=== PATIENT | female | born 1990 | race Caucasian/White ===

== ENCOUNTER 2019-11-01 00:42 | Emergency (ER) | payer OTHER, SELFPAY ==
[2019-11-01 00:44] VITALS: BP 133/86; PULSE 55; RESP 16; TEMP 36.3; O2SAT 99; BMI 33.3
--- NOTE | 2019-11-01 01:06 | ED.VIS.GI ---
History of Present Illness Chief Complaint: Abd Pain Informant: Patient - Abdominal Pain/Flank Pain Onset: Today, Hours - 4-5 Context: Gradual Onset Timing: Continuous - not colicky Quality: Aching Location: RUQ Current Severity: Moderate Maximum Severity: Moderate Worsened by: Nothing Relieved by: Nothing - tried lying a towel soaked in castor oil over her liver where her pain has been; no help. did not drink any castor oil, or try taking any other medications. - Nausea/Vomiting/Emesis GI Symptom: Nausea. Negative for: Vomiting - Diarrhea/Melena/Hematochezia GI Symptom: Negative for: Diarrhea, Melena, Hematochezia Associated Symptoms: Negative for: Dysuria, Frequency, Hematuria, Urgency LMP: 3 weeks - usually irregular Narrative: Patient presenting with a right upper quadrant pain has been constant tonight. Started around 2 hours after she ate a turkey sandwich which was her last meal. No recent fevers or respiratory symptoms. The pain radiates into her mid back, worse on the right. No vaginal complaints or problems urinating recently. No history of kidney stones. Had a but no other abdominal surgeries. Prior similar symptoms: Yes - But less severe and lasted last time, also after meals Past Medical History - Allergies and Home Meds Allergies/Adverse Reactions: Allergies No Known Allergies Allergy (Verified 10/16/16 19:37) Past Medical History: None Surgical History: - - Smoking Status: Never smoker Alcohol: None Review of Systems General: Denies: Chills, Fever, Sweats Eyes: Denies: Visual changes - bilaterally, Diplopia ENT: Denies: Rhinorrhea, Sore throat Cardiovascular: Denies: Chest pain, Palpitations Respiratory: Denies: Dyspnea, Cough, Dyspnea on exertion Gastrointestinal: Reports: Abdominal pain, Nausea. Denies: Vomiting, Diarrhea, Melena, Hematochezia Genitourinary: Denies: Dysuria, Hematuria, Frequency Musculoskeletal: Reports: Back pain. Denies: Extremity Pain Skin: Denies: Rash, Wounds Neurological: Denies: Headache, Weakness, Numbness Physical Exam Vital Signs/Narrative: Vital Signs Temp Pulse Resp BP Pulse Ox 11/01/19 00:44 97.4 F L 55 L 16 133/86 H 99 Inital Vital Signs reviewed: Yes General: Well nourished, Well developed, No Acute Distress Head: Normocephalic, Atraumatic Eyes: Perrl, EOMI ENT: Moist mucous membranes, No rhinorrhea Neck: Supple, Nontender Cardiovascular: Regular rate, Regular rhythm, No murmurs. Negative for: Tachycardia Respiratory: No distress, CTA bilaterally, Chest nontender Abdomen: Soft, Nondistended, Normal bowel sounds, No masses, Tender - Right upper quadrant only. Otherwise benign/nontender., Guarding - Voluntary, Romano's sign. Negative for: Rebound tenderness, Pulsatile mass Back: Nontender, Normal Inspection. Negative for: CVA tenderness Extremities: Nontender, No edema Skin: Normal color, No rash, No Trauma Neurological: Alert, Oriented x3, Cranial nerves II-XII grossly intact, Normal Strength, Normal Sensation, Normal Gait Psychological: Normal affect, Normal Mood Diagnostic/Tx/Re-eval Laboratory Tests 11/01/19 11/01/19 11/01/19 Range/Units 01:15 00:50 00:50 WBC (4.4-11.0) K/mm3 RBC (4.2-5.4) M/mm3 Hgb (12.0-15.0) g/dL Hct (37-47) % MCV (81-99) fL MCH (27.0-32.0) pg MCHC (32-36) g/dL RDW Std Deviation (35.1-43.9) fl RDW Coeff of Akin (11.6-14.6) % Plt Count (150-450) K/mm3 MPV (6.2-12.0) fl Immature Gran % (Auto) (0.0-0.9) % Neut % (Auto) (47-70) % Lymph % (Auto) (19-41) % [place] % (Auto) (0-10) % Eos % (Auto) (0-5) % Baso % (Auto) (0-1) % Absolute Neuts (auto) (2.0-7.7) X10^3/uL Absolute Lymphs (auto) (0.83-4.51) X10^3/uL Nucleated RBC % (0-5) % Sodium 140 (136-145) mmol/L Potassium 3.0 L (3.5-5.1) mmol/L Chloride 108 H (98-107) mmol/L Carbon Dioxide 28.0 (21.0-32.0) mmol/L Anion Gap 4 L (5-15) BUN 15 (7-18) mg/dL Creatinine 0.85 (0.55-1.02) mg/dL Estim Creat Clear Calc 80.78 ml/min Est GFR (MDRD) Af Amer 102 (>60) mL/min Est GFR (MDRD) Non-Af 84 (>60) mL/min BUN/Creatinine Ratio 17.6 (10-20) RATIO Glucose 103 (74-106) mg/dL Calcium 8.8 (8.5-10.1) mg/dL Total Bilirubin 0.30 (0.20-1.00) mg/dL AST 19 (15-37) U/L ALT 32 (13-56) U/L Alkaline Phosphatase 55 (45-117) U/L Total Protein 7.4 (6.4-8.2) g/dL Albumin 3.9 (3.2-5.0) g/dL Globulin 3.5 (2.2-4.2) g/dL Albumin/Globulin Ratio 1.1 (0.9-2.4) RATIO Lipase 202 (73-393) U/L Serum , Qual NEGATIVE Negative Urine Color Yellow (Yellow) Urine Clarity Clear (Clear) Urine pH 6.0 (5.0 - 8.0) Ur Specific [place] 1.020 (1.002-1.030) Urine Protein Negative (Negative) mg/dl Urine Glucose (UA) Normal (Normal) mg/dl Urine Ketones Negative (Negative) mg/dl Urine Occult Blood 25 H (Negative) /ul Urine Nitrite Negative (Negative) Urine Bilirubin Negative (Negative) mg/dL Urine Urobilinogen Normal (Normal) mg/dl Ur Leukocyte Esterase 25 H (Negative) /ul Urine RBC 0 SEEN (0-5) /hpf Urine WBC 0-5 SEEN (0-5) /hpf Ur Squamous Epith Cells 0-5 SEEN (5-10) /hpf Ur Transition Epith Cell 0-5 SEEN (0-5) /hpf Urine Bacteria RARE (None Seen) /hpf Urine Mucus RARE (<or=2+) /hpf 11/01/19 Range/Units 00:50 WBC 7.3 (4.4-11.0) K/mm3 RBC 4.87 (4.2-5.4) M/mm3 Hgb 13.9 (12.0-15.0) g/dL Hct 40.9 (37-47) % MCV 84.0 (81-99) fL MCH 28.5 (27.0-32.0) pg MCHC 34.0 (32-36) g/dL RDW Std Deviation 35.4 (35.1-43.9) fl RDW Coeff of Akin 11.7 (11.6-14.6) % Plt Count 229 (150-450) K/mm3 MPV 8.8 (6.2-12.0) fl Immature Gran % (Auto) 0.100 (0.0-0.9) % Neut % (Auto) 50.7 (47-70) % Lymph % (Auto) 32.0 (19-41) % [place] % (Auto) 7.7 (0-10) % Eos % (Auto) 9.0 H (0-5) % Baso % (Auto) 0.5 (0-1) % Absolute Neuts (auto) 3.7 (2.0-7.7) X10^3/uL Absolute Lymphs (auto) 2.34 (0.83-4.51) X10^3/uL Nucleated RBC % 0 (0-5) % Sodium (136-145) mmol/L Potassium (3.5-5.1) mmol/L Chloride (98-107) mmol/L Carbon Dioxide (21.0-32.0) mmol/L Anion Gap (5-15) BUN (7-18) mg/dL Creatinine (0.55-1.02) mg/dL Estim Creat Clear Calc ml/min Est GFR (MDRD) Af Amer (>60) mL/min Est GFR (MDRD) Non-Af (>60) mL/min BUN/Creatinine Ratio (10-20) RATIO Glucose (74-106) mg/dL Calcium (8.5-10.1) mg/dL Total Bilirubin (0.20-1.00) mg/dL AST (15-37) U/L ALT (13-56) U/L Alkaline Phosphatase (45-117) U/L Total Protein (6.4-8.2) g/dL Albumin (3.2-5.0) g/dL Globulin (2.2-4.2) g/dL Albumin/Globulin Ratio (0.9-2.4) RATIO Lipase (73-393) U/L Serum , Qual Negative Urine Color (Yellow) Urine Clarity (Clear) Urine pH (5.0 - 8.0) Ur Specific [place] (1.002-1.030) Urine Protein (Negative) mg/dl Urine Glucose (UA) (Normal) mg/dl Urine Ketones (Negative) mg/dl Urine Occult Blood (Negative) /ul Urine Nitrite (Negative) Urine Bilirubin (Negative) mg/dL Urine Urobilinogen (Normal) mg/dl Ur Leukocyte Esterase (Negative) /ul Urine RBC (0-5) /hpf Urine WBC (0-5) /hpf Ur Squamous Epith Cells (5-10) /hpf Ur Transition Epith Cell (0-5) /hpf Urine Bacteria (None Seen) /hpf Urine Mucus (<or=2+) /hpf - Medical Decision Making Patient presenting with right upper quadrant pain a couple hours after a meal, nausea, suspicious for possible biliary pain, but presents after hours when ultrasound is not available. Therefore I performed my own [id number] ultrasound of the gallbladder with our ED screening ultrasound machine, confirming multiple small shadowing gallstones, consistent with bilirubin stones, without any signs of gallbladder wall thickening or obvious pericholecystic fluid. Aside from some low potassium at 3.0 the rest of her labs are unremarkable. After Toradol and Zofran, she is feeling much better. I reexamined her. Her exam is much improved and she has barely any discomfort with palpation in the right upper quadrant with a negative Romano's. I reassured her that there is no sign of acute cholecystitis at this time and we discussed reasons to return. I set her up for an outpatient ultrasound of the gallbladder to be done when it is available during business hours, with results going to the on-call surgeon Dr. jacques, to whom she is referred as an outpatient. All questions answered at the bedside and she is comfortable with that plan. ED Disposition - Plan for ED Patient: Disposition: Home or Assisted Living Diagnosis: Biliary colic, Cholelithiasis, Hypokalemia Instructions: ED Gallstones with Biliary Colic, ED Low Fat Diet Referrals: Estrellita Jacques MD [STAFF PHYSICIAN] - (call for appt)
[2019-11-01 01:10] LABS: Absolute Lymphocyte Count 2.34 X10^3/uL (0.83-4.51); Absolute Neutrophil Count 3.7 X10^3/uL (2.0-7.7); Basophil# 0.04 X10^3/uL; Basophil% 0.5 % (0-1); Eosinophil# 0.66 X10^3/uL; Hematocrit 40.9 % (37-47); Hemoglobin 13.9 g/dL (12.0-15.0); Lymphocyte # 2.34 X10^3/ul (4.0); Mean Corpuscular Hgb 28.5 pg (27.0-32.0); Mean Platelet Vol. 8.8 fl (6.2-12.0); Monocyte# 0.56 X10^3/uL; Monocyte% 7.7 % (0-10); NRBC Flagged by Analyzer 0 % (0-5); Neutrophil % 50.7 % (47-70); Platelet Count 229 K/mm3 (150-450); RBC Distribution Width CV 11.7 % (11.6-14.6); RBC Distribution Width SD 35.4 fl (35.1-43.9); Red Blood Count 4.87 M/mm3 (4.2-5.4); White Blood Count 7.3 K/mm3 (4.4-11.0)
[2019-11-01] MEDS: Ketorolac 30 MG/ML Syringe IV (01:14)
[2019-11-01] MEDS: Ondansetron 4 MG/2 ML Vial IV (01:14)
[2019-11-01 01:16] LABS: Internal QC Validated? YES +Cl - CLEAR BKGD
[2019-11-01 01:19] LABS: Pregnancy, Serum, hCG Quali. NEGATIVE Negative
[2019-11-01 01:26] LABS: ALB/GLOB Ratio 1.1 RATIO (0.9-2.4); AST(SGOT) 19 U/L (15-37); Alanine Aminotransfer ALT/SGPT 32 U/L (13-56); Albumin, Serum 3.9 g/dL (3.2-5.0); Alkaline Phosphatase 55 U/L (45-117); Anion Gap 4 (5-15); BUN 15 mg/dL (7-18); BUN/Creat Ratio 17.6 RATIO (10-20); Calcium,Total 8.8 mg/dL (8.5-10.1); Chloride 108 mmol/L (98-107); Creatinine, Serum 0.85 mg/dL (0.55-1.02); EST Glomerular Filtration Rate 84 mL/min (>60); Est Glom Filt Rate - Afr Amer 102 mL/min (>60); Estimated Creatinine Clearance 80.78 ml/min; Globulin 3.5 g/dL (2.2-4.2); Glucose 103 mg/dL (74-106); Lipase 202 U/L (73-393); Protein, Total 7.4 g/dL (6.4-8.2); Sodium Level 140 mmol/L (136-145)
[2019-11-01 01:39] LABS: Red Blood Cells-Urine 0 SEEN /hpf (0-5)
[2019-11-01 01:42] LABS: Color, Urine Yellow (Yellow); Glucose, Dipstick Normal (Normal); Ketone-Dipstick Negative (Negative); Leukocyte Esterase-Dipstick 25 /ul (Negative); Nitrite-Dipstick Negative (Negative); Occult Blood-Urine 25 /ul (Negative); Protein-Dipstick Negative (Negative); Urine Bilirubin Dipstick Negative (Negative); Urine Clarity Clear (Clear); Urine Urobilinogen Normal (Normal)
[2019-11-01 02:00] LABS: Mucous, Urine RARE /hpf (<or=2+); Squamous Epithelial Cells - UA 0-5 SEEN /hpf (5-10)
[2019-11-01 02:01] LABS: Bacteria RARE /hpf (None Seen)
[2019-11-01 02:02] LABS: Transitional Epithelial - Ur 0-5 SEEN /hpf (0-5); White Blood Cells 0-5 SEEN /hpf (0-5)
[2019-11-01 02:50] VITALS: BP 126/77; PULSE 53; RESP 18; O2SAT 100
== END 2019-11-01 02:53 | disposition home or self-care (01) ==
PROVIDERS: Emergency Provider Emergency Medicine
DX: K80.70 Calculus of gallbladder and bile duct without cholecystitis without obstruction (principal); E87.6 Hypokalemia
CPT/HCPCS: 80053; 81001; 83690; 84703; 85025; 96374; 96375; 99284; A4216; J2405

== ENCOUNTER 2021-11-06 00:51 | Emergency (ER) | payer OTHER, SELFPAY ==
[2021-11-06 00:51] VITALS: BP 132/83; PULSE 46; RESP 15; TEMP 35.9; O2SAT 99; BMI 32.4
--- NOTE | 2021-11-06 01:01 | ED.VIS.GI ---
HPI HPI - GI History of Present Illness Chief Complaint: Abd Pain Detail of Chief Complaint: Gallbladder pain Informant: patient Abdominal Pain/Flank Pain Onset: Days Context: Sudden Onset Timing: Continuous Quality: Aching and Cramping Location: RUQ Current Severity: Mild Maximum Severity: Severe Worsened by: Nothing Relieved by: Nothing Nausea/Vomiting/Emesis GI Symptom: Positive for Nausea; Negative for Vomiting Diarrhea/Melena/Hematochezia GI Symptom: Negative for Diarrhea, Melena and Hematochezia Associated Symptoms Associated Symptoms: Negative for Dysuria, Frequency and Hematuria Narrative Narrative: Patient is a 31-year-old woman diagnosed with cholelithiasis 2 years ago. She was referred to a surgeon. She did not follow-up because of COVID. Prior similar symptoms: Yes Recent Illness/Hospitalization: No PFSH PFSH Medical History (Updated 11/06/21 @ 01:[address] Grant Parada MD) H/O severe pre-eclampsia Allergy/AdvReac Type Severity Reaction Status Date / Time No Known Allergies Allergy Verified 06/28/20 13:20 Family History Grandfather Diabetes Surgical History H/O oral surgery S/P Social History household members: spouse and children number of children: 1 current occupation: [employer] history of recent travel: No sexually active: Yes Smoking Status: Never smoker alcohol intake: never substance use type: does not use what type of physical activity do you participate in: walking and weight training frequency: 1-2 times per week seatbelt use: always do you feel safe at home: Yes additional social history: - [facility] ROS ED Constitutional Constitutional ED: Denies chills, fever(s), subjective, sweats or weight loss ENT ENT ED: Denies ear pain, rhinorrhea or sore throat Cardiovascular Cardiovascular: Denies chest pain, palpitations or racing heartbeat Respiratory/Chest Respiratory/Chest: Denies cough, dyspnea or dyspnea on exertion Gastrointestinal Gastrointestinal: Reports abdominal pain and nausea; Denies constipation, diarrhea, melena or vomiting Genitourinary Genitourinary ED: Denies dysuria, hematuria, LMP (females 10-50) or urinary frequency Musculoskeletal Musculoskeletal: Denies arthralgias, myalgias or neck pain Neurologic Neurologic: Denies paresthesias or weakness Endocrine Endocrinology: Denies polydipsia, polyphagia or polyuria EXAM Physical Exam Const Vital Signs: 11/06/21 00:51 Temperature 96.7 F L Temperature Source Temporal Pulse Rate 46 L Respiratory Rate 15 Blood Pressure 132/83 H Blood Pressure Mean 99 Pulse Ox 99 Oxygen Delivery Method Room Air Positive well nourished, well developed and obese General Appearance ED: well developed and NAD; Negative for pallor Nutritional Appearance: obese HEENT Reports moist mucous membranes normocephalic and atraumatic Eyes PERRL and EOMs intact bilaterally General Eye ED: Negative for pale conjunctiva or scleral icterus Neck no lymphadenopathy, supple and no JVD Resp normal respiratory effort and clear to auscultation bilaterally Cardio regular rate, regular rhythm, S1 normal heart sound, S2 normal heart sound and no murmurs GI non-distended and no masses; Negative for non-tender Auscultation: normoactive bowel sounds Palpation: soft Back/Spine no CVA tenderness Cervical Spine: Negative for cervical spine tenderness Thoracic Spine / Upper Back: Negative for thoracic spinal tenderness Lumbar Spine / Lower Back: Negative for lumbar spinal tenderness Extremity full ROM General Extremety ED: Yes edema General Extremity: edema Neuro CN's II-XII intact bilaterally and moves all extremities Sensorium / Orientation: alert, oriented to person, oriented to place and oriented to time Psych mental status grossly normal and thought process normal Skin no wounds General Skin Exam: Negative for jaundice or pallor Lesions: no lesions Rashes: no rashes MDM MDM MDM Narrative Medical decision making narrative: She states her pain is essentially gone. Explained to the patient that blood work is needed. She states she would like to go home. She was informed that she has the right to leave without completion of care. She was referred to general surgeon on-call Dr. Marco Phillips. She was discharged to home with appropriate home-going instructions. In my professional opinion patient has capacity to sign out against medical vice and understands that the risks of leaving prior to completion of work-up. Discharge Plan Triage Chief Complaint: Abd Pain ED Provider: Parada,Grant Dx/Rx/DC Orders Clinical Impression: Biliary colic symptom, Cholelithiasis Instructions: ED Gallstones with Biliary Colic Primary Care Provider: Care Physician,No Primary Referrals: Marco Phillips MD [STAFF PHYSICIAN] - 5-7 Days Care Physician,No Primary [Primary Care Provider] - Activity Restrictions/Additional Instructions: Dr. Dudley for me that leaving prior to laboratory testing may result in a more complicated course, surgical procedure and approach and potential harm. I understand that tests are indicated to determine if additional testing is needed and may necessitate admission. By not allowing the healthcare team to perform these tests and make a proper assessment I understand the risks of leaving which include but not limited to , disability i.e. mental, physical or emotional, complications because of delay in surgery or evaluation again including but not limited to requiring feeding tube, life support and prolonged hospitalization. Disposition Disposition: Against Medical Advice Capacity Capacity Assessment Tool Can the patient make a choice & communicate that choice?: Yes Can the patient understand benefits, risks and alternatives?: Yes Can the patient make a logical, rational choice?: Yes Is the choice the patient makes consistent w/ their values?: Yes Is there an impending, emergent risk to the patient?: Unable to Determine (Since patient would not allow testing) Does the patient have an Advance Directive?: Unable to Determine Is there a Surrogate Available?: No i.e. HCPOA: No
== END 2021-11-06 01:48 | disposition left against medical advice (07) ==
LOC: ED 01:47
PROVIDERS: Emergency Provider Emergency Medicine; Visit Provider Emergency Medicine
DX: K80.70 Calculus of gallbladder and bile duct without cholecystitis without obstruction (principal); E66.9 Obesity, unspecified; Z68.32 Body mass index [BMI] 32.0-32.9, adult; Z53.29 Procedure and treatment not carried out because of patient's decision for other reasons
CPT/HCPCS: 99282

== ENCOUNTER → 2021-11-18 | Outpatient (CLI) | payer SELFPAY ==
--- NOTE | 2021-11-18 07:06 | US_ITS ---
EXAM: US ABDOMEN LIMITED, RIGHT UPPER QUADRANT CLINICAL INDICATION: ruq pain- Intermittant TECHNIQUE: Real-time ultrasound of the right upper quadrant with image documentation. This report was created using [employer] report generation technology. COMPARISON: None. FINDINGS: LIVER: Small hyperechoic lesion in the right lobe of the liver peripherally. It measures 1.4 x 1.5 x 1.3 cm. No intrahepatic biliary ductal dilation. GALLBLADDER: Gallbladder is contracted around stones. Negative sonographic Romano''s sign. Gallbladder wall measures up to 4 mm. No pericholecystic fluid. COMMON BILE DUCT: Unremarkable as visualized. The proximal common bile duct is within normal limits for the patient''s age. PANCREAS: Unremarkable as visualized. No focal abnormality is demonstrated in the pancreas. No pancreatic ductal dilatation. RIGHT KIDNEY: Unremarkable. There is no hydronephrosis. No shadowing calculus. No focal lesion or perinephric collection is demonstrated. US/Gallbladder IMPRESSION: 1. Cholelithiasis with contracted gallbladder. No specific signs of acute cholecystitis. 2. Small hyperechoic lesion in the right lobe of the liver measuring 1.4 cm likely represents hemangioma. Electronically Signed: Marco Arauz MD at 3:26 EDT ,
== END | disposition home or self-care (01) ==
PROVIDERS: Referring Provider Surgery; Visit Provider Surgery
DX: R10.11 Right upper quadrant pain (principal)
CPT/HCPCS: 76705

== ENCOUNTER → 2025-06-01 | Outpatient (CLI) | payer SELFPAY ==
[2025-06-01 14:10] LABS: Hematocrit 40.8 % (37-47); Hemoglobin 14.2 g/dL (12.0-15.0); Immature Granulocytes Count 0.020 X10^3/uL (0.0-0.0); Mean Corp Hgb Conc 34.8 g/dL (32-36); Mean Corpuscular Volume 85.0 fL (81-99); Mean Platelet Vol. 9.4 fl (6.2-12.0); NRBC Flagged by Analyzer 0 % (0-5); Platelet Count 278 K/mm3 (150-450); RBC Distribution Width CV 12.1 % (11.6-14.6); RBC Distribution Width SD 37.2 fl (35.1-43.9); Red Blood Count 4.80 M/mm3 (4.2-5.4); White Blood Count 7.0 K/mm3 (4.4-11.0)
[2025-06-01 14:56] LABS: AST(SGOT) 29 U/L (<=31); Alanine Aminotransfer ALT/SGPT 24 U/L (<=34); Albumin, Serum 4.4 g/dL (3.5-5.0); Alkaline Phosphatase 52 U/L (35-104); Anion Gap 10 (5-15); BUN 14 mg/dL (4-19); BUN/Creat Ratio 16.7 RATIO (10-20); Calcium,Total 9.6 mg/dL (7.6-11.0); Carbon Dioxide 24.2 mmol/L (21.0-32.0); Chloride 104 mmol/L (98-108); Ferritin 101 ng/mL (22-378); Globulin 3.1 g/dL (2.2-4.2); Glucose 93 mg/dL (70-99); Potassium 4.7 mmol/L (3.3-5.1); Vitamin B12 926 pg/mL (180-914); Vitamin D,25 Hydroxy 36.8 ng/mL (30-100)
[2025-06-01 15:01] LABS: FOLATES,SERUM (FOLIC ACID) 12.50 ng/mL (4.60-34.80)
[2025-06-01 15:14] LABS: Amylase 64 U/L (28-100); Iron 123 ug/dL (50-170); Iron Binding Capacity,Total 341 ug/dL (250-450); Iron Binding Capacity,Unsat 218 ug/dL (228-428); Lipase 58 U/L (13-75)
--- OUTSIDE RECORDS SUMMARY | 2025-06-01 17:43 | XMS RPT_ITS | CCD ---
Author Organization [facility] Inform ion Partnership DATA TYPIST [facility] Care Team Providers Care Medical Receptionist Medical Assistant Name Role Phone [employer] Unavailable Unavailable NO REFERRING DR Unavailable Unavailable DON FRANKEL Unavailable Unavailable Care Physician, No Primary Primary Care Provider Unavailable Care Physician, No Primary Referring Provider Un available Dr. Marco Phillips Attending Provider RADHA SHAH, DR GILBERTO Kimbrough Primary Care Physician [phone] Kelsy Macdonald NP Referring Unavailabl e Renae DOOR AND ARRIVAL ATTENDANTKelsy Attending Unavailabl e Care Physician, No Primary Primary Care Unava ilable KELSY MACDONALD CNP Attending Unavailable KELSY MACDONALD CNP Consulting Unavailable KELSY MACDONALD CNP Primary Care Unavailable KELSY MACDONALD CNP Admitting Unavailable PROVIDER, UNKNOWN Consulting Unavailable RADHA SHAH, DR GILBERTO Kimbrough Primary Care Unavailab buck GARRETT ADMINISTRATIVE REPRESENTATIVE-CNM, STEFANIA Tan Attending Gloria vailable Problems Active Problems Problem Classification Problem Date Documented Date Episodic/Chronic Abdominal pain (2 sources) Right upper quadrant pain; Translations: [Right upper quadrant pain] Episodic Biliary tract disease (9 sources) Biliary calculus; Translations: [Calculus of gallbladder without cholecystitis without obstruction] Episodic Esophageal disorders (1 source) Gastro-esophageal reflux disease without esophagitis; Translations: [GERD WITHOUT ESOPHAGITIS] Onset: 11-11-2016 Chronic Fluid and electrolyte disorders (2 sources) Hypokalemia; Translations: [Hypokalemia] Episodic Past or Other Problems Problem Classification Problem Date Documented Da te Episodic/Chronic Nonspecific chest pain (1 source) Chest pain, unspecified; Translations: [CHEST PAIN UNSPECIFIED] Onset: 11-11-2016 Episodic Other lower respiratory disease (3 sources) Dyspnea, unspecified; Translations: [Solitary pulmonary nodule] Onset: 11-11-2016 Episodic Results Test Name Value Interpretation Reference Range Facil ity US PELVIS NON-OB W/TRANSVAGI NALon 05-10-2025 US PELVIS NON-OB W/TRANSVAGINAL ORIGINAL EXAMINATION: Ultrasound pelvis, 05/10/2025 11:29 am transabdominal and transvaginal COMPARISON: Ultrasound 08/07/2015 TECHNIQUE: This report is based on interpretation of permanently recorded ultrasound images. HISTORY: ORDERING SYSTEM PROVIDED HISTORY: Reason for Exam: PELVIC PAIN, FINDINGS: The uterus is 7.2 x 3.2 x 5.7 cm. It is retroflexed on the transvaginal images. No myometrial mass is seen. The endometrium is homogeneous and 7 mm in double wall thickness without focal lesion or fluid.. Right ovary: 3.9 x 2.5 x 2.7 cm. Volume 12.9 cc Left ovary: 4.1 x 2.1 x 2.5 cm. Volume 12.9 cc There are multiple subcentimeter follicles in the ovaries mainly in the periphery. More than 25 follicles seen to present on both sides. No dominant ovarian cyst or suspicious lesion is seen. There is blood flow to both ovaries. Trace pelvic free fluid is usually physiologic at this age. IMPRESSION: Polycystic appearance of the ovaries as described. PCOS should be a clinical diagnosis. Interpreted by: Paula Mo MD Preliminary Report By: Paula Mo MD Electronically signed By Paula Mo MD Dictated Date: 05/10/2025 3:59:10 PM Prelim Date: 05/10/2025 4:01:29 PM Sign Date: 05/10/2025 4:01:29 PM Ordering Provider: STEFANIA GARRETT RP [facility] US RUQ (GB/PANCREAS)on 07-19 US RUQ (GB/PANCREAS) [place] [address] Patient: TROY LEARY Phone#: : 1990 Age: 33 Gender: F Pt. Type: Out Account: [id number] Location: Ordering: KELSY MACDONALD Exam Date: 07/19/2024/10:16 Family Phys: Charge Code: [id number] Physician: Juana Diaz Order #: [id number] Dose#: PROCEDURE: RUQ (GB) ULTRASOUND COMPARISON: None. INDICATIONS: RUQ pain FINDINGS: LIVER: Normal. Normal size and echotexture. No significant masses. BILIARY: Multiple gallbladder calculi are present. Insurance Analyst calculus is 8 millimeters in diameter. The gallbladder wall is minimally in thickness. The common bile duct is normal at 1.1 millimeter. PANCREAS: Normal. No visible mass, abnormal atrophy, or ductal dilatation. RIGHT KIDNEY: Normal. No mass or obstruction. OTHER: Negative. CONCLUSION: 1. Cholelithiasis. DICTATED BY: ROSITA GERARDO MD ON 07/19/2024 AT 11:09 APPROVED BY: ROSITA GERARDO MD ON 07/19/2024 AT 11:11 Normal [facility] Amylaseon 07-08-2024 KATE 63 U/L Normal 25-115 [facility] Comment on above: Performed By: #### L 501.9520, L500.4050, L506.0400, L501.2400, L501.39560, L501.2450, L100.0100 #### [facility] [address] [place], [address] CBC W/Diff, Automatedon 06-20 Absolute Lymph 1.64 X10 3/uL Normal 0.83-4.51 [facility] Comment on above: Performed By: #### L 501.9520, L500.4050, L506.0400, L501.2400, L501.97189, L501.2450, L100.0100 #### [facility] [address] [place], [address] Absolute Neut 3.4 X10 3/uL Normal 2.0-7.7 [facility] Comment on above: Performed By: #### L 501.9520, L500.4050, L506.0400, L501.2400, L501.95600, L501.2450, L100.0100 #### [facility] [address] [place], [address] Basophils/100 WBC (Bld) 0.7 % Normal 0-1 [facility] Comment on above: Performed By: #### L 501.9520, L500.4050, L506.0400, L501.2400, L501.97210, L501.2450, L100.0100 #### [facility] [address] [place], [address] Eosinophils/100 WBC (Bld) 10.6 % High 0-5 [facility] Comment on above: Performed By: #### L 501.9520, L500.4050, L506.0400, L501.2400, L501.92330, L501.2450, L100.0100 #### [facility] [address] [place], [address] Erythrocyte distribution width (RBC) [Ratio] 11.9 % Normal 11.6-14.6 [facility] Comment on above: Performed By: #### L 501.9520, L500.4050, L506.0400, L501.2400, L501.40411, L501.2450, L100.0100 #### [facility] [address] [place], [address] Hematocrit (Bld) [Volume fraction] 43.2 % Normal 37-47 [facility] Comment on above: Performed By: #### L 501.9520, L500.4050, L506.0400, L501.2400, L501.92526, L501.2450, L100.0100 #### [facility] [address] [place], [address] Hemoglobin (Bld) [Mass/Vol] 14.6 g/dL Normal 12.0-15.0 [facility] Comment on above: Performed By: #### L 501.9520, L500.4050, L506.0400, L501.2400, L501.04407, L501.2450, L100.0100 #### [facility] [address] [place], [address] IG% 0.300 Normal 0.0-0.9 [facility] Comment on above: Result Comment: IG% - Immature Granulocytes (promyelocytes, myelocytes and metamyelocytes) > 1% indicates that a LEFT SHIFT is Present. Performed By: #### L 501.9520, L500.4050, L506.0400, L501.2400, L501.95776, L501.2450, L100.0100 #### [facility] [address] [place], [address] Lymphocytes/100 WBC (Bld) 26.7 % Normal 19-41 [facility] Comment on above: Performed By: #### L 501.9520, L500.4050, L506.0400, L501.2400, L501.09834, L501.2450, L100.0100 #### [facility] [address] [place], [address] MCH (RBC) [Entitic mass] 28.7 pg Normal 27.0-32.0 [facility] Comment on above: Performed By: #### L 501.9520, L500.4050, L506.0400, L501.2400, L501.73379, L501.2450, L100.0100 #### [facility] [address] [place], [address] MCHC (RBC) [Mass/Vol] 33.8 g/dL Normal 32-36 [facility] Comment on above: Performed By: #### L 501.9520, L500.4050, L506.0400, L501.2400, L501.22824, L501.2450, L100.0100 #### [facility] [address] [place], [address] MCV (RBC) [Entitic vol] 85.0 fL Normal 81-99 [facility] Comment on above: Performed By: #### L 501.9520, L500.4050, L506.0400, L501.2400, L501.44692, L501.2450, L100.0100 #### [facility] [address] [place], [address] Monocytes/100 WBC (Bld) 6.3 % Normal 0-10 [facility] Comment on above: Performed By: #### L 501.9520, L500.4050, L506.0400, L501.2400, L501.28379, L501.2450, L100.0100 #### [facility] [address], [address] Neutrophils/100 WBC (Bld) 55.4 % Normal 47-70 [facility] Comment on above: Performed By: #### L 501.9520, L500.4050, L506.0400, L501.2400, L501.86226, L501.2450, L100.0100 #### [facility] [address] [place], [address] Nucleated RBC (Bld) [#/Vol] 0 10*3/uL Normal 0-5 [facility] Comment on above: Performed By: #### L 501.9520, L500.4050, L506.0400, L501.2400, L501.14705, L501.2450, L100.0100 #### [facility] [address] [place], [address] Platelet mean volume (Bld) [Entitic vol] 9.4 fL Normal 6.2-12.0 [facility] Comment on above: Performed By: #### L 501.9520, L500.4050, L506.0400, L501.2400, L501.73527, L501.2450, L100.0100 #### [facility] [address] [place], [address] Platelets (Bld) [#/Vol] 268 10*3/uL Normal 150-450 [facility] Comment on above: Performed By: #### L 501.9520, L500.4050, L506.0400, L501.2400, L501.05803, L501.2450, L100.0100 #### [facility] [address] [place], [address] (634) RBC (Bld) [#/Vol] 5.08 10*6/uL Normal 4.2-5.4 [facility] Comment on above: Performed By: #### L 501.9520, L500.4050, L506.0400, L501.2400, L501.19152, L501.2450, L100.0100 #### [facility] [address] [place], [address] (983) RDW SD 35.8 fl Normal 35.1-43.9 [facility] Comment on above: Performed By: #### L 501.9520, L500.4050, L506.0400, L501.2400, L501.16494, L501.2450, L100.0100 #### [facility] [address] [place], [address] WBC (Bld) [#/Vol] 6.2 10*3/uL Normal 4.4-11.0 [facility] Comment on above: Performed By: #### L 501.9520, L500.4050, L506.0400, L501.2400, L501.89231, L501.2450, L100.0100 #### [facility] [address] [place], [address] Comprehensive Metabolic Prof ilon 07-08-2024 Albumin [Mass/Vol] 4.0 g/dL Normal 3.2-5.0 [facility] Comment on above: Performed By: #### L 501.9520, L500.4050, L506.0400, L501.2400, L501.88736, L501.2450, L100.0100 #### [facility] [address] [place], [address] Albumin/Globulin [Mass ratio] 1.2 {ratio} Normal 0.9-2.4 [facility] Comment on above: Performed By: #### L 501.9520, L500.4050, L506.0400, L501.2400, L501.50100, L501.2450, L100.0100 #### [facility] [address] [place], [address] ALK P 64 U/L Normal 45-117 [facility] Comment on above: Performed By: #### L 501.9520, L500.4050, L506.0400, L501.2400, L501.40040, L501.2450, L100.0100 #### [facility] [address] [place], [address] ALT [Catalytic activity/Vol] 37 U/L Normal 13-56 [facility] Comment on above: Performed By: #### L 501.9520, L500.4050, L506.0400, L501.2400, L501.78731, L501.2450, L100.0100 #### [facility] [address] [place], [address] AST [Catalytic activity/Vol] 16 U/L Normal 15-37 [facility] Comment on above: Performed By: #### L 501.9520, L500.4050, L506.0400, L501.2400, L501.44303, L501.2450, L100.0100 #### [facility] [address] [place], [address] Bilirubin [Mass/Vol] 0.50 mg/dL Normal 0.20-1.00 [facility] Comment on above: Result Comment: For patients on eltrombopag therapy, use of Dimension [place] TBIL is not recommended. Performed By: #### L 501.9520, L500.4050, L506.0400, L501.2400, L501.56701, L501.2450, L100.0100 #### [facility] [address] [place], [address] BUN/CRE 16.7 RATIO Normal 10-20 [facility] Comment on above: Performed By: #### L 501.9520, L500.4050, L506.0400, L501.2400, L501.61182, L501.2450, L100.0100 #### [facility] [address] [place], [address] CA,Total 9.3 mg/dL Normal 8.5-10.1 [facility] Comment on above: Performed By: #### L 501.9520, L500.4050, L506.0400, L501.2400, L501.65424, L501.2450, L100.0100 #### [facility] [address] [place], [address] Chloride [Moles/Vol] 106 mmol/L Normal 98-107 [facility] Comment on above: Performed By: #### L 501.9520, L500.4050, L506.0400, L501.2400, L501.52161, L501.2450, L100.0100 #### [facility] [address] [place], [address] CO2 [Moles/Vol] 28.0 mmol/L Normal 21.0-32.0 [facility] Comment on above: Performed By: #### L 501.9520, L500.4050, L506.0400, L501.2400, L501.71266, L501.2450, L100.0100 #### [facility] [address] [place], [address] Creatinine [Mass/Vol] 0.72 mg/dL Normal 0.55-1.02 [facility] Comment on above: Result Comment: The validity of the calculated GFR GFRAA in patients over 70 years has not been determined. Clinical correlation is essential. Performed By: #### L 501.9520, L500.4050, L506.0400, L501.2400, L501.22201, L501.2450, L100.0100 #### [facility] [address] [place], [address] EST GFR - AA 120 mL/min Normal >60 [facility] Comment on above: Result Comment: Afri can Nigerien GFR Calc Performed By: #### L 501.9520, L500.4050, L506.0400, L501.2400, L501.83562, L501.2450, L100.0100 #### [facility] [address] [place], [address] GAP 5 Normal 5-15 [facility] Comment on above: Performed By: #### L 501.9520, L500.4050, L506.0400, L501.2400, L501.28962, L501.2450, L100.0100 #### [facility] [address] [place], [address] GFR/1.73 sq M.predicted among non-blacks MDRD (S/P/Bld) [Vol rate/Area] 99 mL/min/{1.73_m2} Normal >60 [facility] Comment on above: Result Comment: Non- GFR Calc Performed By: #### L 501.9520, L500.4050, L506.0400, L501.2400, L501.14109, L501.2450, L100.0100 #### [facility] [address] [place], [address] Globulin (S) [Mass/Vol] 3.4 g/dL Normal 2.2-4.2 [facility] Comment on above: Performed By: #### L 501.9520, L500.4050, L506.0400, L501.2400, L501.11628, L501.2450, L100.0100 #### [facility] [address] [place], [address] Glucose [Mass/Vol] 80 mg/dL Normal 74-106 [facility] Comment on above: Performed By: #### L 501.9520, L500.4050, L506.0400, L501.2400, L501.27317, L501.2450, L100.0100 #### [facility] [address] [place], [address] Potassium [Moles/Vol] 4.1 mmol/L Normal 3.5-5.1 [facility] Comment on above: Performed By: #### L 501.9520, L500.4050, L506.0400, L501.2400, L501.35632, L501.2450, L100.0100 #### [facility] [address] [place], [address] Sodium [Moles/Vol] 138 mmol/L Normal 136-145 [facility] Comment on above: Performed By: #### L 501.9520, L500.4050, L506.0400, L501.2400, L501.00827, L501.2450, L100.0100 #### [facility] [address] [place], [address] T PROT 7.4 g/dL Normal 6.4-8.2 [facility] Comment on above: Performed By: #### L 501.9520, L500.4050, L506.0400, L501.2400, L501.30393, L501.2450, L100.0100 #### [facility] [address] [place], [address] Urea nitrogen [Mass/Vol] 12 mg/dL Normal 7-18 [facility] Comment on above: Performed By: #### L 501.9520, L500.4050, L506.0400, L501.2400, L501.11033, L501.2450, L100.0100 #### [facility] [address] [place], [address] Free T3on 07-08-2024 Free T3 [Mass/Vol] 2.7 pg/mL Normal 2.18-3.98 [facility] Comment on above: Performed By: #### L 501.9520, L500.4050, L506.0400, L501.2400, L501.44221, L501.2450, L100.0100 #### [facility] [address] [place], [address] Lipaseon 07-08-2024 Lipase [Catalytic activity/Vol] 72 U/L Normal 13-75 [facility] Comment on above: Result Comment: Lynn jackson note: LIPASE revised reference range effective 22. New Lipase methodology. Expected to produce lower values than the previous assay method. NEW Reference Range: 13 - 75 U/L Performed By: #### L 501.9520, L500.4050, L506.0400, L501.2400, L501.25443, L501.2450, L100.0100 #### [facility] [address] [place], [address] T4 Free Directon 07-08-2024 T4 FREE DIRECT 0.98 ng/dL Normal 0.76-1.46 [facility] Comment on above: Performed By: #### L 501.9520, L500.4050, L506.0400, L501.2400, L501.25131, L501.2450, L100.0100 #### [facility] [address] [place], [address] Thyroid Stim Hormone (TSH)on 07-08-2024 TSH 1.210 uIU/mL Normal 0.358-3.740 [facility] Comment on above: Performed By: #### L 501.9520, L500.4050, L506.0400, L501.2400, L501.71898, L501.2450, L100.0100 #### [facility] [address] [place], [address] Vital Signs Date Time Vital Sign Value Performing Clinician Aurelio roman 11-14-2021 13:59-0400 Body height 160.02 cm No Primary Care Physician [facility] Work Phone: 11-14-2021 13:59-0400 Body mass index (BMI) [Ratio] 31.8 kg/m2 No Primary Care Physician [facility] Work Phone: 11-14-2021 13:59-0400 Body weight 81.64 kg No Primary Care Physician [facility] Work Phone: 11-14-2021 13:59-0400 Diastolic blood pressure 85 mm[Hg] No Primary Care Physician [facility] Work Phone: 11-14-2021 13:59-0400 Respiratory rate 16 /min No Primary Care Physician [facility] Work Phone: 11-14-2021 13:59-0400 Systolic blood pressure 139 mm[Hg] No Primary Care Physician [facility] Work Phone: 11-06-2021 00:51-0400 Body height 160.02 cm [facility] Work Phone: 11-06-2021 00:51-0400 Body mass index (BMI) [Ratio] 32.4 kg/m2 [facility] Work Phone: 11-06-2021 00:51-0400 Body temperature 96.7 [degF] [facility] Work Phone: 11-06-2021 00:51-0400 Body weight 83 kg [facility] Work Phone: 11-06-2021 00:51-0400 Diastolic blood pressure 83 mm[Hg] [facility] Work Phone: 11-06-2021 00:51-0400 Heart rate 46 /min [facility] Work Phone: 11-06-2021 00:51-0400 Respiratory rate 15 /min [facility] Work Phone: 11-06-2021 00:51-0400 SaO2% (BldA) [Mass fraction] 99 % [facility] Work Phone: 11-06-2021 00:51-0400 Systolic blood pressure 132 mm[Hg] [facility] Work Phone: Encounters Encounter Date Encounter Type Care Provider Facility Start: 05-10-2025 End: 05-10-[address] GILEBRTO GARCIA MD Facility:[facility] Start: 05-10-2025 End: 05-10-2025 Patient encounter procedure STEFANIA GARRETT ADMINISTRATIVE REPRESENTATIVE-CNM [facility] Start: 07-19-2024 End: 07-19-2024 ambulatory KELSY MACDONALD [facility] Start: 07-08-2024 ambulatory Kelsy Macdonald NP Fa cility:[facility] Start: 03-30-2024 End: 03-30-2024 Patient encounter procedure STEFANIA GARRETT ADMINISTRATIVE REPRESENTATIVE-CNM [facility] Start: 11-18-2021 End: 11-18-2021 Patient encounter procedure No Primary Care Physician [facility] Start: 11-14-2021 End: 11-14-2021 Patient encounter procedure No Primary Care Physician [facility] Start: 11-06-2021 End: 04-20-2022 Emergency department patient visit [facility] Start: 11-11-2016 End: 11-11-2016 Emergency department patient visit [facility] Facility:[facility] Procedures Date Procedure Procedure Detail Performing Clinician Start: 11-18-2021 US scan of gallbladder No Primary Care Physician Plan of Treatment Date Care Activity Detail Author Patient Education ED Gallstones with Bili bhavya Colic [facility] Work Phone: Patient referral [facility] Work Phone: Payers Date Payer Category Payer Self-pay [id number] 1990 Unknown [id number] 1990 Unknown [id number] Unknown [id number] Unknown SELF PAY INSURANCE [id number] Unknown [id number] Unknown Social History Date Type Detail Facility [facility] Work Phone: Start: 11-06-2021 End: 11-14-2021 Tobacco smoking status NHIS Unknown if ever smoked [facility] Work Phone: Start: 11-01-2019 None [facility] Work Phone: Start: 1990 Sex Assigned At Female W [facility] Work Phone: Tobacco smoking status [facility] Start: 08-07-2015 Sex Female (finding) [facility] Clinical Note 05-10-2025 Note Date & Type Note Facility 05-10-2025 Note Exam Date Time Procedure Performing Provider Status 05/10/25 11:23 AM US Pelvis Non-OB W/Transvaginal PAULA MCKINNON MD; Auth (Verified) [id number] ORIGINAL EXAMINATION: Ultrasound pelvis, 05/10/2025 11:29 am transabdominal and transvaginal COMPARISON: Ultrasound 08/07/2015 TECHNIQUE: This report is based on interpretation of permanently recorded ultrasound images. HISTORY: ORDERING SYSTEM PROVIDED HISTORY: Reason for Exam: PELVIC PAIN, FINDINGS: The uterus is 7.2 x 3.2 x 5.7 cm. It is retroflexed on the transvaginal images. No myometrial mass is seen. The endometrium is homogeneous and 7 mm in double wall thickness without focal lesion or fluid.. Right ovary: 3.9 x 2.5 x 2.7 cm. Volume 12.9 cc Left ovary: 4.1 x 2.1 x 2.5 cm. Volume 12.9 cc There are multiple subcentimeter follicles in the ovaries mainly in the periphery. More than 25 follicles seen to present on both sides. No dominant ovarian cyst or suspicious lesion is seen. There is blood flow to both ovaries. Trace pelvic free fluid is usually physiologic at this age. IMPRESSION: Polycystic appearance of the ovaries as described. PCOS should be a clinical diagnosis. Interpreted by: Paula Mo MD Preliminary Report By: Paula Mo MD Electronically signed By Paula Mo MD Dictated Date: 05/10/2025 3:59:10 PM Prelim Date: 05/10/2025 4:01:29 PM Sign Date: 05/10/2025 4:01:29 PM Ordering Provider: STEFANIA GARRETT RP [facility] Evaluation + Plan note Note Date & Type Note Facility Evaluation + Plan note No data available for this section [facility] [facility] Evaluation note Note Date & Type Note Facility Evaluation note No assessment information availa ble [facility] Work Phone: Evaluation note Note Date & Type Note Facility Evaluation note Diagnosis Onset Date Cholelithiasis acute RUQ pain acute [facility] Work Phone: Hospital Discharge instructions Note Date & Type Note Facility Hospital Discharge instructions Additional Instructions Dr. Dudley for me that leaving prior to laboratory testing may result in a more complicated course, surgical procedure and approach and potential harm. I understand that tests are indicated to determine if additional testing is needed and may necessitate admission. By not allowing the healthcare team to perform these tests and make a proper assessment I understand the risks of leaving which include but not limited to , disability i.e. mental, physical or emotional, complications because of delay in surgery or evaluation again including but not limited to requiring feeding tube, life support and prolonged hospitalization. [facility] Work Phone: Hospital Discharge instructions Note Date & Type Note Facility Hospital Discharge instructions [facility] Work Phone: Hospital Discharge instructions Note Date & Type Note Facility Hospital Discharge instructions No data available for this section [facility] Progress note Note Date & Type Note Facility Progress note No data available for this section [facility] Summary Purpose Family History No Family History Records Found Relationship Condition Age at Onset Recorded Date/T kanu grandfather Diabetes mellitus Unknown Advance Directives No Advanced Directives Records Found Advance Directive Response Recorded Date/ Time Living Will No November 06, 2021 12:55am Power of Stablehand No November 06 12:55am Chief Complaint and Reason for Visit Chief Complaint abd pain Chief Complaint abd pain POSSIBLE GALLBLADDER. ED 11/06 RUQ ABD PAIN Reason for Visit Cholelithiasis RUQ pain Additional Source Comments INFORMATION SOURCE (unrecogn ized section and content) DATE CREATED AUTHOR 01/13/2018 [facility] DATE CREATED AUTHOR AUTHOR'S ORGANIZ ATION 07/11/2024 [facility] DATE CREATED AUTHOR AUTHOR'S ORGANIZ ATION 07/28/2024 [facility] DATE CREATED AUTHOR AUTHOR'S ORGANIZ ATION 05/14/2025 [facility] Goals (unrecognized section and content) Goals may be documented in a n alternate sectionGoals may be documented in an alternate section No data available for this section No data available for this section Patient Care team informatio n (unrecognized section and content) Care Team Personnel Name: GILBERTO GARCIA MD Member Role: Primary Care Physician Address: Address: [address] [place] [id number]- Care Team Related Persons Name: RICHARD LEARY Address: [address] [place] [address] Care Team Personnel Name: GILBERTO GARCIA MD Member Role: Primary Care Physician Address: [address] [place] [address]- [place] [employer]: Care Team Related Persons Name: RICHARD LEARY FOR RECORDS PERTAINING TO PATIENTS WHO ARE OR HAVE BEEN ENROLLED IN A CHEMICAL DEPENDENCY/SUBSTANCEABUSE PROGRAM, SOME INFORMATION MAY BE OMITTED. This clinical summary was aggregated from multiple sources. Caution should be exercised in using it in the provision of clinical care. This summary normalizes information from multiple sources, and as a consequence, information in this document may materially change the coding, format and clinical context of patient data. In addition, data may be omitted in some cases. CLINICAL DECISIONS SHOULD BE BASED ON THE PRIMARY CLINICAL RECORDS. [employer] [facility]. provides no warranty or guarantee of the accuracy or completeness of information in this document.
[2025-06-03 04:07] LABS: PROGESTERONE 13.6 ng/mL (.)
== END | disposition home or self-care (01) ==
LOC: LABSPEC 12:43
PROVIDERS: Referring Provider Nurse Practitioner Family; Visit Provider Nurse Practitioner Family
DX: M25.511 Pain in right shoulder (principal); L65.8 Other specified nonscarring hair loss; J06.9 Acute upper respiratory infection, unspecified; R10.10 Upper abdominal pain, unspecified; R11.0 Nausea; R53.83 Other fatigue
CPT/HCPCS: 80053; 82150; 82306; 82607; 82627; 82670; 82728; 82746; 83036; 83540; 83550; 83690; 84144; 84403; 85025; 82626

== ENCOUNTER 2025-06-07 00:58 | Emergency (ER) | payer SELFPAY ==
[2025-06-07 01:00] VITALS: BP 126/86; PULSE 51; RESP 18; TEMP 36.6; O2SAT 100; BMI 31.1
[2025-06-07] MEDS: 0.9% Normal Saline (1000mL) 1,000 ML 999 ML IV (01:30)
[2025-06-07 01:31] LABS: Hematocrit 39.2 % (37-47); Hemoglobin 13.4 g/dL (12.0-15.0); Immature Granulocytes Count 0.030 X10^3/uL (0.0-0.0); Mean Corp Hgb Conc 34.2 g/dL (32-36); Mean Corpuscular Volume 84.8 fL (81-99); Mean Platelet Vol. 9.0 fl (6.2-12.0); NRBC Flagged by Analyzer 0 % (0-5); Platelet Count 295 K/mm3 (150-450); RBC Distribution Width CV 11.9 % (11.6-14.6); RBC Distribution Width SD 36.0 fl (35.1-43.9); Red Blood Count 4.62 M/mm3 (4.2-5.4); White Blood Count 8.6 K/mm3 (4.4-11.0)
--- OUTSIDE RECORDS SUMMARY | 2025-06-07 01:33 | XMS RPT_ITS | CCD ---
Author Organization [facility] Inform ion Partnership COP EXAMINER [facility] Care Team Providers Care Software Applications Architect Name Role Phone [employer] Unavailable Unavailable NO REFERRING DR Unavailable Unavailable DON FRANKEL Unavailable Unavailable Care Physician, No Primary Primary Care Provider Unavailable Care Physician, No Primary Referring Provider Un available Dr. Marco Phillips Attending Provider [phone] RADHA SHAH, DR GILBERTO Kimbrough Primary Care Physician [phone] Kelsy Macdonald NP Referring Unavailabl e Renae STORAGE BRINE WORKERKelsy Attending Unavailabl e Care Physician, No Primary Primary Care Unava ilable KELSY MACDONALD CNP Attending Unavailable KELSY MACDONALD CNP Consulting Unavailable KELSY MACDONALD CNP Primary Care Unavailable KELSY MACDONALD CNP Admitting Unavailable PROVIDER, UNKNOWN Consulting Unavailable RADHA SHAH, DR GILBERTO Kimbrough Primary Care Unavailab buck GARRETT OPTICAL TECHNICIAN-CNM, STEFANIA Tan Attending Gloria vailable Problems Active [...] 4:01:29 PM Ordering Provider: STEFANIA GARRETT RP [facility] US RUQ (GB/PANCREAS)on 07-19 US RUQ (GB/PANCREAS) [place] [address] Patient: TROY LEARY Phone#: : 1990 Age: 33 Gender: F Pt. Type: Out Account: [id number] Location: Ordering: KELSY MACDONALD Exam Date: 07/19/2024/10:16 Family Phys: Charge Code: 124386 Physician: Taylor Order #: [id number] Dose#: PROCEDURE: RUQ (GB) ULTRASOUND COMPARISON: None. INDICATIONS: RUQ pain FINDINGS: LIVER: Normal. Normal size and echotexture. No significant masses. BILIARY: Multiple gallbladder calculi are present. Slot Operations Director calculus is 8 millimeters in diameter. The gallbladder wall is minimally in thickness. The common bile duct is normal at 1.1 millimeter. PANCREAS: Normal. No visible mass, abnormal atrophy, or ductal dilatation. RIGHT KIDNEY: Normal. No mass or obstruction. OTHER: Negative. CONCLUSION: 1. Cholelithiasis. DICTATED BY: ROSITA GERARDO MD ON 07/19/2024 AT 11:09 APPROVED BY: ROSITA GERARDO MD ON 07/19/2024 AT 11:11 Normal [facility] Amylaseon 07-08-2024 KATE 63 U/L Normal 25-115 [facility] Comment on above: Performed By: #### L 501.9520, L500.4050, L506.0400, L501.2400, L501.53829, L501.2450, L100.0100 #### [facility] [address] [place], [address] CBC W/Diff, Automatedon 06-20 Absolute Lymph 1.64 X10 3/uL Normal 0.83-4.51 [facility] Comment on above: Performed By: #### L 501.9520, L500.4050, L506.0400, L501.2400, L501.27736, L501.2450, L100.0100 #### [facility] [address] [place], [address] Absolute Neut 3.4 X10 3/uL Normal 2.0-7.7 [facility] Comment on above: Performed By: #### L 501.9520, L500.4050, L506.0400, L501.2400, L501.65941, L501.2450, L100.0100 #### [facility] [address] [place], [address] Basophils/100 WBC (Bld) 0.7 % Normal 0-1 [facility] Comment on above: Performed By: #### L 501.9520, L500.4050, L506.0400, L501.2400, L501.20328, L501.2450, L100.0100 #### [facility] [address] [place], [address] Eosinophils/100 WBC (Bld) 10.6 % High 0-5 [facility] Comment on above: Performed By: #### L 501.9520, L500.4050, L506.0400, L501.2400, L501.64194, L501.2450, L100.0100 #### [facility] [address] [place], [address] Erythrocyte distribution width (RBC) [Ratio] 11.9 % Normal 11.6-14.6 [facility] Comment on above: Performed By: #### L 501.9520, L500.4050, L506.0400, L501.2400, L501.16588, L501.2450, L100.0100 #### [facility] [address] [place], [address] Hematocrit (Bld) [Volume fraction] 43.2 % Normal 37-47 [facility] Comment on above: Performed By: #### L 501.9520, L500.4050, L506.0400, L501.2400, L501.05203, L501.2450, L100.0100 #### [facility] [address] [place], [address] Hemoglobin (Bld) [Mass/Vol] 14.6 g/dL Normal 12.0-15.0 [facility] Comment on above: Performed By: #### L 501.9520, L500.4050, L506.0400, L501.2400, L501.36471, L501.2450, L100.0100 #### [facility] [address] [place], [address] IG% 0.300 Normal 0.0-0.9 [facility] Comment on above: Result Comment: IG% - Immature Granulocytes (promyelocytes, myelocytes and metamyelocytes) > 1% indicates that a LEFT SHIFT is Present. Performed By: #### L 501.9520, L500.4050, L506.0400, L501.2400, L501.99344, L501.2450, L100.0100 #### [facility] [address] [place], [address] Lymphocytes/100 WBC (Bld) 26.7 % Normal 19-41 [facility] Comment on above: Performed By: #### L 501.9520, L500.4050, L506.0400, L501.2400, L501.25778, L501.2450, L100.0100 #### [facility] [address] [facility] [place], [address] MCH (RBC) [Entitic mass] 28.7 pg Normal 27.0-32.0 [facility] Comment on above: Performed By: #### L 501.9520, L500.4050, L506.0400, L501.2400, L501.61402, L501.2450, L100.0100 #### [facility] [address] [facility] [place], [address] MCHC (RBC) [Mass/Vol] 33.8 g/dL Normal 32-36 [facility] Comment on above: Performed By: #### L 501.9520, L500.4050, L506.0400, L501.2400, L501.61045, L501.2450, L100.0100 #### [facility] [address] [place], [address] MCV (RBC) [Entitic vol] 85.0 fL Normal 81-99 [facility] Comment on above: Performed By: #### L 501.9520, L500.4050, L506.0400, L501.2400, L501.93362, L501.2450, L100.0100 #### [facility] [address] [place], [address] Monocytes/100 WBC (Bld) 6.3 % Normal 0-10 [facility] Comment on above: Performed By: #### L 501.9520, L500.4050, L506.0400, L501.2400, L501.36308, L501.2450, L100.0100 #### [facility] [address] [place], [address] Neutrophils/100 WBC (Bld) 55.4 % Normal 47-70 [facility] Comment on above: Performed By: #### L 501.9520, L500.4050, L506.0400, L501.2400, L501.61800, L501.2450, L100.0100 #### [facility] [address] [place], [address] Nucleated RBC (Bld) [#/Vol] 0 10*3/uL Normal 0-5 [facility] Comment on above: Performed By: #### L 501.9520, L500.4050, L506.0400, L501.2400, L501.47134, L501.2450, L100.0100 #### [facility] [address] [place], [address] Platelet mean volume (Bld) [Entitic vol] 9.4 fL Normal 6.2-12.0 [facility] Comment on above: Performed By: #### L 501.9520, L500.4050, L506.0400, L501.2400, L501.96646, L501.2450, L100.0100 #### [facility] [address] [place], [address] Platelets (Bld) [#/Vol] 268 10*3/uL Normal 150-450 [facility] Comment on above: Performed By: #### L 501.9520, L500.4050, L506.0400, L501.2400, L501.06744, L501.2450, L100.0100 #### [facility] [address] [place], [address] (166) RBC (Bld) [#/Vol] 5.08 10*6/uL Normal 4.2-5.4 [facility] Comment on above: Performed By: #### L 501.9520, L500.4050, L506.0400, L501.2400, L501.53752, L501.2450, L100.0100 #### [facility] [address] [place], [address] (338) RDW SD 35.8 fl Normal 35.1-43.9 [facility] Comment on above: Performed By: #### L 501.9520, L500.4050, L506.0400, L501.2400, L501.43996, L501.2450, L100.0100 #### [facility] [address] [place], [address] WBC (Bld) [#/Vol] 6.2 10*3/uL Normal 4.4-11.0 [facility] Comment on above: Performed By: #### L 501.9520, L500.4050, L506.0400, L501.2400, L501.62565, L501.2450, L100.0100 #### [facility] [address] [place], [address] Comprehensive Metabolic Prof ilon 07-08-2024 Albumin [Mass/Vol] 4.0 g/dL Normal 3.2-5.0 [facility] Comment on above: Performed By: #### L 501.9520, L500.4050, L506.0400, L501.2400, L501.33121, L501.2450, L100.0100 #### [facility] [address] [place], [address] Albumin/Globulin [Mass ratio] 1.2 {ratio} Normal 0.9-2.4 [facility] Comment on above: Performed By: #### L 501.9520, L500.4050, L506.0400, L501.2400, L501.23954, L501.2450, L100.0100 #### [facility] [address] [place], [address] ALK P 64 U/L Normal 45-117 [facility] Comment on above: Performed By: #### L 501.9520, L500.4050, L506.0400, L501.2400, L501.93910, L501.2450, L100.0100 #### [facility] [address] [place], [address] ALT [Catalytic activity/Vol] 37 U/L Normal 13-56 [facility] Comment on above: Performed By: #### L 501.9520, L500.4050, L506.0400, L501.2400, L501.45548, L501.2450, L100.0100 #### [facility] [address] [place], [address] AST [Catalytic activity/Vol] 16 U/L Normal 15-37 [facility] Comment on above: Performed By: #### L 501.9520, L500.4050, L506.0400, L501.2400, L501.86864, L501.2450, L100.0100 #### [facility] [address] [place], [address] Bilirubin [Mass/Vol] 0.50 mg/dL Normal 0.20-1.00 [facility] Comment on above: Result Comment: For patients on eltrombopag therapy, use of Dimension [place] TBIL is not recommended. Performed By: #### L 501.9520, L500.4050, L506.0400, L501.2400, L501.44709, L501.2450, L100.0100 #### [facility] [address] [place], [address] BUN/CRE 16.7 RATIO Normal 10-20 [facility] Comment on above: Performed By: #### L 501.9520, L500.4050, L506.0400, L501.2400, L501.21954, L501.2450, L100.0100 #### [facility] [address] [place], [address] CA,Total 9.3 mg/dL Normal 8.5-10.1 [facility] Comment on above: Performed By: #### L 501.9520, L500.4050, L506.0400, L501.2400, L501.14965, L501.2450, L100.0100 #### [facility] [address] [place], [address] Chloride [Moles/Vol] 106 mmol/L Normal 98-107 [facility] Comment on above: Performed By: #### L 501.9520, L500.4050, L506.0400, L501.2400, L501.91453, L501.2450, L100.0100 #### [facility] [address] [place], [address] CO2 [Moles/Vol] 28.0 mmol/L Normal 21.0-32.0 [facility] Comment on above: Performed By: #### L 501.9520, L500.4050, L506.0400, L501.2400, L501.53366, L501.2450, L100.0100 #### [facility] [address] [place], [address] Creatinine [Mass/Vol] 0.72 mg/dL Normal 0.55-1.02 [facility] Comment on above: Result Comment: The validity of the calculated GFR GFRAA in patients over 70 years has not been determined. Clinical correlation is essential. Performed By: #### L 501.9520, L500.4050, L506.0400, L501.2400, L501.06912, L501.2450, L100.0100 #### [facility] [address] [place], [address] EST GFR - AA 120 mL/min Normal >60 [facility] Comment on above: Result Comment: Afri can [place] GFR Calc Performed By: #### L 501.9520, L500.4050, L506.0400, L501.2400, L501.83420, L501.2450, L100.0100 #### [facility] [address] [place], [address] GAP 5 Normal 5-15 [facility] Comment on above: Performed By: #### L 501.9520, L500.4050, L506.0400, L501.2400, L501.10941, L501.2450, L100.0100 #### [facility] [address] [place], [address] GFR/1.73 sq M.predicted among non-blacks MDRD (S/P/Bld) [Vol rate/Area] 99 mL/min/{1.73_m2} Normal >60 [facility] Comment on above: Result Comment: Non- GFR Calc Performed By: #### L 501.9520, L500.4050, L506.0400, L501.2400, L501.98623, L501.2450, L100.0100 #### [facility] [address] [place], [address] Globulin (S) [Mass/Vol] 3.4 g/dL Normal 2.2-4.2 [facility] Comment on above: Performed By: #### L 501.9520, L500.4050, L506.0400, L501.2400, L501.75290, L501.2450, L100.0100 #### [facility] [address] [place], [address] Glucose [Mass/Vol] 80 mg/dL Normal 74-106 [facility] Comment on above: Performed By: #### L 501.9520, L500.4050, L506.0400, L501.2400, L501.01871, L501.2450, L100.0100 #### [facility] [address] [place], [address] Potassium [Moles/Vol] 4.1 mmol/L Normal 3.5-5.1 [facility] Comment on above: Performed By: #### L 501.9520, L500.4050, L506.0400, L501.2400, L501.30551, L501.2450, L100.0100 #### [facility] [address] [place], [address] Sodium [Moles/Vol] 138 mmol/L Normal 136-145 [facility] Comment on above: Performed By: #### L 501.9520, L500.4050, L506.0400, L501.2400, L501.06521, L501.2450, L100.0100 #### [facility] [address] [place], [address] T PROT 7.4 g/dL Normal 6.4-8.2 [facility] Comment on above: Performed By: #### L 501.9520, L500.4050, L506.0400, L501.2400, L501.43330, L501.2450, L100.0100 #### [facility] [address] [place], [address] Urea nitrogen [Mass/Vol] 12 mg/dL Normal 7-18 [facility] Comment on above: Performed By: #### L 501.9520, L500.4050, L506.0400, L501.2400, L501.98698, L501.2450, L100.0100 #### [facility] [address] [place], [address] Free T3on 07-08-2024 Free T3 [Mass/Vol] 2.7 pg/mL Normal 2.18-3.98 [facility] Comment on above: Performed By: #### L 501.9520, L500.4050, L506.0400, L501.2400, L501.41325, L501.2450, L100.0100 #### [facility] [address] [place], [address] Lipaseon 07-08-2024 Lipase [Catalytic activity/Vol] 72 U/L Normal 13-75 [facility] Comment on above: Result Comment: Lynn jackson note: LIPASE revised reference range effective 22. New Lipase methodology. Expected to produce lower values than the previous assay method. NEW Reference Range: 13 - 75 U/L Performed By: #### L 501.9520, L500.4050, L506.0400, L501.2400, L501.11816, L501.2450, L100.0100 #### [facility] [address] [place], [address] T4 Free Directon 07-08-2024 T4 FREE DIRECT 0.98 ng/dL Normal 0.76-1.46 [facility] Comment on above: Performed By: #### L 501.9520, L500.4050, L506.0400, L501.2400, L501.38222, L501.2450, L100.0100 #### [facility] [address] [place], [address] Thyroid Stim Hormone (TSH)on 07-08-2024 TSH 1.210 uIU/mL Normal 0.358-3.740 [facility] Comment on above: Performed By: #### L 501.9520, L500.4050, L506.0400, L501.2400, L501.74576, L501.2450, L100.0100 #### [facility] [address] [place], [address] Vital Signs Date Time Vital Sign Value Performing Clinician Aurelio roman 11-14-2021 13:59-0400 Body height 160.02 cm No Primary Care Physician [facility] Work Phone: 11-14-2021 13:59-0400 Body mass index (BMI) [Ratio] 31.8 kg/m2 No Primary Care Physician [facility] Work Phone: 11-14-2021 13:59-0400 Body weight 81.64 kg No Primary Care Physician [facility] Work Phone: 11-14-2021 13:59-0400 Diastolic blood pressure 85 mm[Hg] No Primary Care Physician [facility] Work Phone: 11-14-2021 13:59-0400 Respiratory rate 16 /min No Primary Care Physician [facility] Work Phone: 11-14-2021 13:59-0400 Systolic blood pressure 139 mm[Hg] No Primary Care Physician [facility] Work Phone: 11-06-2021 00:51-0400 Body height 160.02 cm [facility] Work Phone: 11-06-2021 00:51-0400 Body mass index (BMI) [Ratio] 32.4 kg/m2 [facility] Work Phone: 11-06-2021 00:51-0400 Body temperature 96.7 [degF] [facility] Work Phone: 11-06-2021 00:51-0400 Body weight 83 kg [facility] Work Phone: 11-06-2021 00:51-0400 Diastolic blood pressure 83 mm[Hg] [facility] Work Phone: 11-06-2021 00:51-0400 Heart rate 46 /min [facility] Work Phone: 11-06-2021 00:51-0400 Respiratory rate 15 /min [facility] Work Phone: 11-06-2021 00:51-0400 SaO2% (BldA) [Mass fraction] 99 % [facility] Work Phone: 11-06-2021 00:51-0400 Systolic blood pressure 132 mm[Hg] [facility] Work Phone: Encounters Encounter Date Encounter Type Care Provider Facility Start: 05-10-2025 End: 05-10-[address] GILBERTO GARCIA MD Facility:[facility] Start: 05-10-2025 End: 05-10-2025 Patient encounter procedure STEFANIA GARRETT OPTICAL TECHNICIAN-CNM [facility] Start: 07-19-2024 End: 07-19-2024 ambulatory KELSY MACDONALD [facility] Start: 07-08-2024 ambulatory Kelsy Macdonald NP Fa cility:[facility] Start: 03-30-2024 End: 03-30-2024 Patient encounter procedure STEFANIA GARRETT OPTICAL TECHNICIAN-CNM [facility] Start: 11-18-2021 End: 11-18-2021 Patient encounter procedure No Primary Care Physician [facility] Start: 11-14-2021 End: 11-14-2021 Patient encounter procedure No Primary Care Physician [facility] Start: 11-06-2021 End: 04-20-2022 Emergency department patient visit [facility] Start: 11-11-2016 End: 11-11-2016 Emergency department patient visit [facility] Facility:[facility] Procedures Date Procedure Procedure Detail Performing Clinician Start: 11-18-2021 US scan of gallbladder No Primary Care Physician Plan of Treatment Date Care Activity Detail Author Patient Education ED Gallstones with Bili bhavya Colic [facility] Work Phone: Patient referral [facility] Work Phone: Payers Date Payer Category Payer Self-pay [id number] 1990 Unknown [id number] 1990 Unknown [id number] Unknown [id number] Unknown SELF PAY INSURANCE [id number] Unknown [id number] Unknown Social History Date Type Detail Facility [facility] Work Phone: Start: 11-06-2021 End: 11-14-2021 Tobacco smoking status NHIS Unknown if ever smoked [facility] Work Phone: Start: 11-01-2019 None [facility] Work Phone: Start: 1990 Sex Assigned At Female [facility] Work Phone: Tobacco smoking status [facility] Start: 08-07-2015 Sex Female (finding) [facility] Clinical Note 05-10-2025 Note Date & Type Note Facility 05-10-2025 Note Exam Date Time Procedure Performing Provider Status 05/10/25 11:23 AM US Pelvis Non-OB W/Transvaginal PAULA MCKINNON MD; Auth (Verified) [id number] ORIGINAL EXAMINATION: Ultrasound pelvis, 05/10/2025 11:29 am [...] 4:01:29 PM Ordering Provider: STEFANIA GARRETT RP [facility] Evaluation + Plan note Note Date & Type Note Facility Evaluation + Plan note No data available for this section [facility] Evaluation note Note Date & Type Note Facility Evaluation note No assessment information availa ble [facility] Work Phone: Evaluation note Note Date & Type Note Facility Evaluation note Diagnosis Onset Date Cholelithiasis acute RUQ pain acute [facility] Work Phone: Hospital Discharge instructions Note Date [...] feeding tube, life support and prolonged hospitalization. [facility] Work Phone: Hospital Discharge instructions Note Date & Type Note Facility Hospital Discharge instructions [facility] Work Phone: Hospital Discharge instructions Note Date & Type Note Facility Hospital Discharge instructions No data available for this section [facility] Progress note Note Date & Type Note Facility Progress note No data available for this section [facility] Summary Purpose Family History No Family History Records Found Relationship Condition Age at Onset Recorded Date/T kanu grandfather Diabetes mellitus Unknown Advance Directives No Advanced Directives Records Found Advance Directive Response Recorded Date/ Time Living Will No November 06, 2021 12:55am Power of Environmental Sustainability Manager No November 06 12:55am Chief Complaint and Reason for Visit Chief Complaint abd pain Chief Complaint abd pain POSSIBLE GALLBLADDER. ED 11/06 RUQ ABD PAIN Reason for Visit Cholelithiasis RUQ pain Additional Source Comments INFORMATION SOURCE (unrecogn ized section and content) DATE CREATED AUTHOR 01/13/2018 [facility] DATE CREATED AUTHOR AUTHOR'S ORGANIZ ATION 07/11/2024 [facility] DATE CREATED AUTHOR AUTHOR'S ORGANIZ ATION 07/28/2024 [facility] DATE CREATED AUTHOR AUTHOR'S ORGANIZ ATION 05/14/2025 [facility] Goals (unrecognized section and content) Goals may be documented in a n alternate sectionGoals may be documented in an alternate section No data available for this section No data available for this section Patient Care team informatio n (unrecognized section and content) Care Team Personnel Name: GILBERTO GARCIA MD Member Role: Primary Care Physician Address: Address: [address] [place] [address]- Care Team Related Persons Name: RICHARD LEARY Address: [address] [place] [address] Care Team Personnel Name: GILBERTO GARCIA MD Member Role: Primary Care Physician Address: [address] [place] [address]- [place] [employer]: Care Team Related Persons Name: [...] BE BASED ON THE PRIMARY CLINICAL RECORDS. [employer] [facility]. provides no warranty or guarantee of the accuracy or completeness of information in this document.
[2025-06-07 01:58] LABS: Lipase 62 U/L (13-75)
[2025-06-07 02:03] LABS: AST(SGOT) 22 U/L (<=31); Alanine Aminotransfer ALT/SGPT 29 U/L (<=34); Albumin, Serum 4.4 g/dL (3.5-5.0); Alkaline Phosphatase 48 U/L (35-104); Anion Gap 14 (5-15); BUN 14 mg/dL (4-19); BUN/Creat Ratio 16.9 RATIO (10-20); Bilirubin, Direct 0.14 mg/dL (0.00-0.30); Calcium,Total 9.2 mg/dL (7.6-11.0); Carbon Dioxide 22.8 mmol/L (21.0-32.0); Chloride 102 mmol/L (98-108); Estimated Creatinine Clearance 93.16 ml/min (50-250); Globulin 3.0 g/dL (2.2-4.2); Glucose 113 mg/dL (70-99); Potassium 3.0 mmol/L (3.3-5.1)
[2025-06-07 02:05] LABS: Color, Urine Yellow (Yellow); Glucose, Dipstick Normal (Normal); Ketone-Dipstick 50 mg/dl (Negative); Leukocyte Esterase-Dipstick 25 /ul (Negative); Nitrite-Dipstick Negative (Negative); Occult Blood-Urine Negative /ul (Negative); Protein-Dipstick 30 mg/dl (Negative); Specific Gravity, Urine 1.015 (1.002-1.030); Urine Bilirubin Dipstick Negative (Negative)
[2025-06-07 02:16] LABS: Internal QC Validated? YES +Cl - CLEAR BKGD; Pregnancy, Serum, hCG Quali. POSITIVE Negative; Record Kit Lot#, Serum Preg. 0000980607
--- NOTE | 2025-06-07 02:27 | US_ITS ---
PROCEDURE: TRANSVAGINAL W/PREG US 06/07/2025 REASON FOR EXAM: ABD PAIN TECHNIQUE: Procedure Code: USTVAGP Modality: US Procedure: TRANSVAGINAL W/PREG US COMPARISON: None. FINDINGS The uterus measures 8.9 x 6.5 x 4.7 cm. The endometrium measures 5 mm in its thickness. Moderate amount of free fluid is noted in the pelvic cul-de-sac. The right ovary measures 4.2 x 3.1 x 2.4 cm. Right ovarian cyst measuring 1.5 x 0.9 x 0.9 cm. The left ovary measures 3.8 x 2.4 x 2.4 cm. Left adnexal cystic structure is noted measuring 1.4 x 1.4 x 1 cm without associated increased vascularity. Normal left ovarian flow. US/Transvaginal w/Preg US IMPRESSION: No intrauterine is visualized. Moderate amount of free fluid is noted in the pelvic cul-de-sac. Right ovarian simple cyst. Left adnexal cystic structure measuring 1.4 cm without associated increased vas cularity. Correlation with beta HCG level and follow-up exams are suggested to better exc lude ectopic . [facility]
[2025-06-07 02:40] LABS: Mucous, Urine 1+ /hpf (<or=2+); Red Blood Cells-Urine 0-5 SEEN /hpf (0-5); Squamous Epithelial Cells - UA 0-5 SEEN /hpf (5-10)
--- NOTE | 2025-06-07 02:57 | EDS_ITS ---
HPI History of Present Illness Chief Complaint: Flank Pain Informant: patient and spouse/S.O. Narrative Narrative: Patient is a 34-year-old female with past medical history of GERD and known gallstones. She states that a few hours prior to arrival she developed pain in the upper right abdomen and right back. She states there is nausea without vomiting associated with the pain. She denies any recent trauma or excessive activity. She does admit to a history of known gallstones but states she is not followed up to have potentially gallbladder removed. She states that there is no history of kidney stone nor does she admit to any type of dysuria or hematur ia. She states the pain feels similar to her history of gallbladder attacks but as the pain will not resolve with [id number] medication or time she presents for evaluation. [facility] Medical History GERD (gastroesophageal reflux disease) H/O severe pre-eclampsia Home Medications ?Medication ?Instructions ?Recorded ?Last Taken ?Type ondansetron 4 mg disintegrating 4 mg PO Q8H PRN PRN Na usea #10 tabs 06/07/25 Unknown Rx tablet oxycodone-acetaminophen 5 mg-325 1 tab PO Q6H PRN PRN pain 5 days 06/07/25 Unknown Rx mg tablet #20 TABLETS Allergy/AdvReac Type Severity Reaction Status Date / Time No Known Allergies Allergy Verified 06/07/25 18:25 Family History Grandfather Diabetes Surgical History H/O oral surgery S/P Social History household members: spouse and children number of children: 1 current occupational status: employed current occupation: [employer] history of recent travel: No sexually active: Yes Smoking Status: Never smoker alcohol intake: never substance use type: does not use what type of physical activity do you participate in: walking and weight training frequency: 1-2 times per week seatbelt use: always do you feel safe at home: Yes additional social history: - Luke ROS ROS ED Constitutional Constitutional ED: Denies chills or fever(s) ENT ENT ED: Denies sore throat Cardiovascular Cardiovascular: Denies chest pain Respiratory/Chest Respiratory/Chest: Denies cough or dyspnea Gastrointestinal Gastrointestinal: Reports abdominal pain and nausea; Denies diarrhea or vomiting Genitourinary Genitourinary ED: Denies dysuria or hematuria Musculoskeletal Musculoskeletal: Reports back pain Integumentary Denies rash Neurologic Neurologic: Denies headache(s) Hematologic/Lymphatic Hematologic/Lymphatic: Denies easy bleeding or easy bruising EXAM Physical Exam Const Vital Signs: 06/07/25 01:00 06/07/25 03:00 06/07/25 05:00 Temperature 98 F Temperature Source Oral Pulse Rate 51 L 57 L 59 L Respiratory Rate 18 16 16 Blood Pressure 126/86 H 139/77 H 138/74 H Blood Pressure Mean 99 97 95 Pulse Ox 100 100 100 Oxygen Delivery Method Room Air Room Air Room Air 06/07/25 05:00 Temperature 98 F Temperature Source Pulse Rate 59 L Respiratory Rate 16 Blood Pressure 138/74 H Blood Pressure Mean 95 Pulse Ox 100 Oxygen Delivery Method Positive well nourished and well developed General Appearance ED: well developed; Negative for pallor HEENT Reports moist mucous membranes HEENT Narrative: Normocephalic atraumatic No tongue or lip swelling no oral lesions no airway edema or compromise; no secondary findings in the posterior pharynx to suggest infection Eyes PERRL and EOMs intact bilaterally General Eye ED: Negative for scleral icterus Neck supple Resp normal respiratory effort and clear to auscultation bilaterally Cardio regular rate and regular rhythm Rate: other Other Details: Heart is regular rate and rhythm without murmurs rubs or gallops Radial and carotid pulses are equal and symmetric GI non-distended and no masses GI Narrative: Abdomen is soft and nondistended with normal active bowel sounds. There is pain with palpation in the midepigastric and right upper quadrant region. However negative Romano sign. No voluntary guarding or rigidity. No pulsatile mass or fluid wave. No peritoneal signs Auscultation: normoactive bowel sounds Palpation: soft Back/Spine Back/Spine Narrative: Mild right CVA pain noted Extremity normal to inspection Neuro oriented x3, CN's II-XII intact bilaterally and no sensory deficits noted Sensorium / Orientation: alert Motor Exam: strength 5/5 throughout Psych mental status grossly normal Skin no rashes or lesions noted and no wounds Skin Narrative: No overlying soft tissue changes to suggest trauma or infection General Skin Exam: Negative for jaundice or pallor MDM MDM MDM Narrative Medical decision making narrative: Patient arrived to ER with stable vitals. She has a known history of gallstones and states that her pain feels similar nature to her previous episodes. She also has some mild right CVA pain. Patient could have a biliary spasm or developing acute cholecystitis or pancreatitis or potential UTI/pyelonephritis or kidney stone. Patient states there is potential as well so this could be a complication. Secondary to this basic labs were obtained with urine sample. Initially a CT scan was ordered to assess for potentially kidney stone versus pyelonephritis versus biliary colic or acute cholecystitis. However her test came back positive and there is concern that the pain could be related to complication such as ectopic . In order to avoid radiation from the CT scan since she is now with early it was canceled. Ultrasound was called in and transvaginal ultrasound was performed. This revealed no IUP but most likely due to the patient's very early status as her hCG value is only 475. Otherwise it showed no obvious findings for torsion or ectopic . The patient does not have a white count or left shift her lipase is normal as well as her liver enzymes and this would go against gallstone pancreatitis or secondary infection such as acute cholecystitis. On reevaluation the patient has had significant improvement of her pain. Romano sign remains negative. We did discuss that symptoms could be related to gallbladder spasm versus developing infection. However with stable vitals and normal labs I have low concern for infectious process. Patient states that she will follow-up as an outpatient and get a repeat gallbladder ultrasound in order to ensure there is no signs of developing infection. She understands to return if she develops a fever or pain worsens. However at this time she does not have signs of ovarian torsion or ectopic there is no blood within the urine to suggest kidney stone or nor signs of infection to suggest UTI as py elonephritis and without fever leukocytosis left shift and normal liver enzymes have low concern for developing acute cholecystitis and therefore patient is otherwise safe for discharge. History & Record Review Discussion w/independent historian: Patient and Significant other Lab Data Attestation: I reviewed the patient's lab results. Labs: Laboratory Results - last 24 hr 06/07/25 06/07/25 06/07/25 01:03 01:59 02:21 WBC 8.6 RBC 4.62 Hgb 13.4 Hct 39.2 MCV 84.8 MCH 29.0 MCHC 34.2 RDW Std Deviation 36.0 RDW Coeff of Akin 11.9 Plt Count 295 MPV 9.0 Immature Gran % (Auto) 0.300 Neut % (Auto) 52.8 Lymph % (Auto) 34.4 [place] % (Auto) 7.8 Eos % (Auto) 4.1 Baso % (Auto) 0.6 Absolute Neuts (auto) 4.6 Absolute Lymphs (auto) 2.96 Nucleated RBC % 0 Sodium 139 Potassium 3.0 L Chloride 102 Carbon Dioxide 22.8 Anion Gap 14 BUN 14 Creatinine 0.85 Estim Creat Clear Calc 93.16 Est GFR (MDRD) Non-Af 92 BUN/Creatinine Ratio 16.9 Glucose 113 H Calcium 9.2 Total Bilirubin 0.36 Direct Bilirubin 0.14 AST 22 ALT 29 Alkaline Phosphatase 48 Total Protein 7.3 Albumin 4.4 Globulin 3.0 Lipase 62 HCG, Quant 475 H Serum , Qual POSITIVE Urine Color Yellow Urine Clarity Clear Urine pH 6.5 Ur Specific [place] 1.015 Urine Protein 30 H Urine Glucose (UA) Normal Urine Ketones 50 H Urine Occult Blood Negative Urine Nitrite Negative Urine Bilirubin Negative Urine Urobilinogen Normal Ur Leukocyte Esterase 25 H Urine RBC 0-5 SEEN Urine WBC 0-5 SEEN Ur Squamous Epith Cells 0-5 SEEN Urine Bacteria RARE Hyaline Casts 0-5 SEEN Urine Mucus 1+ Radiography Diagnostic Testing: Clinical Impression(s) from Imaging Studies Obstetrics Ultrasound 06/07/25 02:27 IMPRESSION: No intrauterine is visualized. Moderate amount of free fluid is noted in the pelvic cul-de-sac. Right ovarian simple cyst. Left adnexal cystic structure measuring 1.4 cm without associated increased vascularity. Correlation with beta HCG level and follow-up exams are suggested to better exclude ectopic . [facility] Dis[facility] Triage Chief Complaint: Flank Pain ED Provider: Ok Rasmussen Dx/Rx/DC Orders Clinical Impression: RUQ pain, , Cholelithiasis Instructions: ED Abdominal Pain, Early , ED Gallstones with Biliary Colic Prescriptions: No Action oxycodone-acetaminophen 5-325 mg tablet 1 tab PO Q6H PRN PRN (Reason: pain) 5 Days Qty: 20 0RF ondansetron 4 mg tablet,disintegrating 4 mg PO Q8H PRN PRN (Reason: Nausea) Qty: 10 0RF Other Ambulatory Orders: Gallbladder (Routine) Facility: [facility] - Location: [facility] Ordered By: Dr. kO Rasmussen Primary Care Provider: Evelia Bird Referrals: Razia Love DO [Med Staff - Active Staff, Obstetrics-Gynecology (OBGYN)] Evelia Bird, WELLNESS TRAINER-C [Primary Care Provider, Family Practice] Activity Restrictions/Additional Instructions: Your history and exam would indicate a gallbladder spasm as the cause of your pain. We did find that you are approximately 1 to 3 weeks at today's visit. Your hCG value was 475. Please follow-up with COLORING CHECKER to discuss repeat hCG value testing as well as ultrasound to ensure a normal progression of . Obtain your outpatient gallbladder ultrasound to also ensure there is no signs of secondary infection and return to the ER should you have any further concerns Print Language: Colombian Disposition Disposition: Home, Self Care Discharge Date/Time: 06/07/25 05:30
[2025-06-07 03:00] VITALS: BP 139/77; PULSE 57; RESP 16; O2SAT 100
[2025-06-07 03:31] LABS: hCG Titer Quant., Serum 475 mIU/mL (<9 non-preg)
[2025-06-07 05:00] VITALS: BP 138/74; PULSE 59; RESP 16; TEMP 36.6; O2SAT 100
== END 2025-06-07 05:30 | disposition home or self-care (01) ==
PROVIDERS: Emergency Provider Emergency Medicine; PCP Nurse Practitioner Family; Visit Provider Emergency Medicine
DX: R10.A1 Flank pain, right side (principal); K80.20 Calculus of gallbladder without cholecystitis without obstruction; O99.891 Other specified diseases and conditions complicating pregnancy; R10.11 Right upper quadrant pain; O99.619 Diseases of the digestive system complicating pregnancy, unspecified trimester; Z3A.00 Weeks of gestation of pregnancy not specified
CPT/HCPCS: 76817; 80048; 80076; 81001; 83690; 84702; 84703; 85025; 96361; 96374; 96375; 99283; A4216; J2405

== ENCOUNTER 2025-06-07 18:24 | Emergency (ER) | payer SELFPAY ==
[2025-06-07 18:25] VITALS: BP 137/80; PULSE 53; RESP 18; TEMP 36.3; O2SAT 100; BMI 30.2
--- NOTE | 2025-06-07 18:56 | US_ITS ---
PROCEDURE: GALLBLADDER 06/07/2025 REASON FOR EXAM: PAIN TECHNIQUE: Procedure Code: USGB Modality: US Procedure: GALLBLADDER COMPARISON: None FINDINGS: GALLBLADDER: Distended. Multiple gallstones. No gallbladder wall thickening or pericholecystic fluid. Positive Romano sign. COMMON BILE DUCT: Measures 6.7 mm. No intrahepatic biliary dilatation. LIVER: Normal size. Increased echotexture. No definite hepatic mass. RIGHT KIDNEY: Normal in size and echogenicity. No mass. No urinary stones. No hydronephrosis. Pancreas: Grossly within normal limits.
[2025-06-07] MEDS: 0.9% Normal Saline (1000mL) 1,000 ML 125 ML IV (19:06)
[2025-06-07 19:09] VITALS: BP 119/72; PULSE 58; RESP 15; O2SAT 100
[2025-06-07 19:17] LABS: Hematocrit 37.1 % (37-47); Hemoglobin 13.3 g/dL (12.0-15.0); Immature Granulocytes Count 0.030 X10^3/uL (0.0-0.0); Mean Corp Hgb Conc 35.8 g/dL (32-36); Mean Corpuscular Volume 84.3 fL (81-99); Mean Platelet Vol. 9.0 fl (6.2-12.0); NRBC Flagged by Analyzer 0 % (0-5); Platelet Count 284 K/mm3 (150-450); RBC Distribution Width CV 12.3 % (11.6-14.6); RBC Distribution Width SD 37.0 fl (35.1-43.9); Red Blood Count 4.40 M/mm3 (4.2-5.4); White Blood Count 10.9 K/mm3 (4.4-11.0)
[2025-06-07 19:42] LABS: Lipase 39 U/L (13-75)
[2025-06-07 19:44] LABS: AST(SGOT) 20 U/L (<=31); Alanine Aminotransfer ALT/SGPT 26 U/L (<=34); Albumin, Serum 4.4 g/dL (3.5-5.0); Alkaline Phosphatase 50 U/L (35-104); Anion Gap 12 (5-15); BUN 7 mg/dL (4-19); BUN/Creat Ratio 10.7 RATIO (10-20); Calcium,Total 9.0 mg/dL (7.6-11.0); Carbon Dioxide 20.8 mmol/L (21.0-32.0); Chloride 104 mmol/L (98-108); Estimated Creatinine Clearance 117.37 ml/min (50-250); Globulin 3.0 g/dL (2.2-4.2); Glucose 109 mg/dL (70-99); Potassium 4.2 mmol/L (3.3-5.1)
[2025-06-07] MEDS: HYDROmorphone 0.5 MG/0.5 ML SYRINGE IV ×2 (20:00→20:49)
[2025-06-07 20:01] VITALS: BP 132/81; PULSE 48; RESP 15; O2SAT 100
--- NOTE | 2025-06-07 20:28 | EDS_ITS ---
HPI History of Present Illness Chief Complaint: Abd Pain Detail of Chief Complaint: Right upper quadrant abdominal pain radiates through to her back Informant: patient Onset/Context/Timing Onset: Yesterday (Last evening) Context: Sudden Onset Timing: Continuous Quality: Sharp achy Location: Right upper quadrant radiates through to her back Worsened by: Movement and attempt to eat anything Relieved by: Nothing Associated Symptoms Associated Symptoms: Nausea and vomiting Narrative Narrative: Patient is a 34-year-old woman. She was seen yesterday. She had an ultrasound of the pelvis that revealed nothing in the uterus. Her quant was 475. She has some free fluid noted. Case was discussed with [place] [employer] MACHINE on-call. Her OB is affiliated with [facility]. This is her third . She had a miscarriage with her second last summer. Patient has known gallstones. She has not had any to eat since last evening. She is attempted to eat saltine crackers and carrots and apples today. She was not successful. She denies fever, chills night sweats. She denies frequency, dysuria, hematuria or urgency. She denies any vaginal symptoms. Prior similar symptoms: Yes Recent Illness/Hospitalization: Yes PFSH PFS Medical History GERD (gastroesophageal reflux disease) H/O severe pre-eclampsia Home Medications ?Medication ?Instructions ?Recorded ?Last Taken ?Type ondansetron 4 mg disintegrating 4 mg PO Q8H PRN PRN Na usea #10 tabs 06/07/25 Unknown Rx tablet oxycodone-acetaminophen 5 mg-325 1 tab PO Q6H PRN PRN pain 5 days 06/07/25 Unknown Rx mg tablet #20 TABLETS Allergy/AdvReac Type Severity Reaction Status Date / Time No Known Allergies Allergy Verified 06/07/25 18:25 Family History Grandfather Diabetes Surgical History H/O oral surgery S/P Social History household members: spouse and children number of children: 1 current occupational status: employed current occupation: [employer] history of recent travel: No sexually active: Yes Smoking Status: Never smoker alcohol intake: never substance use type: does not use what type of physical activity do you participate in: walking and weight training frequency: 1-2 times per week seatbelt use: always do you feel safe at home: Yes additional social history: - Hasrhal ALLEN ROS ED Constitutional Constitutional ED: Denies chills, fever(s), subjective, sweats or weight loss Eyes Eyes: Denies blurry vision or change in vision ENT ENT ED: Denies ear pain, rhinorrhea or sore throat Cardiovascular Cardiovascular: Denies chest pain or palpitations Respiratory/Chest Respiratory/Chest: Denies cough, dyspnea or dyspnea on exertion Gastrointestinal Gastrointestinal: Reports abdominal pain, nausea and vomiting; Denies constipation, diarrhea or melena Genitourinary Genitourinary ED: Denies dysuria, hematuria or urinary frequency Musculoskeletal Musculoskeletal: Reports back pain; Denies arthralgias or neck pain Integumentary Denies abscess, Abrasions or rash Neurologic Neurologic: Denies headache(s), paresthesias or weakness Psychiatric Psychiatric: Denies anxiety or depression Endocrine Endocrinology: Denies cold intolerance or heat intolerance Hematologic/Lymphatic Hematologic/Lymphatic: Reports systems reviewed and no addt'l complaints, except as documented EXAM Physical Exam Const Vital Signs: 06/07/25 18:25 06/07/25 19:09 06/07/25 20:01 Temperature 97.3 F L Temperature Source Temporal Pulse Rate 53 L 58 L 48 L Respiratory Rate 18 15 15 Blood Pressure 137/80 H 119/72 132/81 H Blood Pressure Mean 99 87 98 Pulse Ox 100 100 100 Oxygen Delivery Method Room Air 06/07/25 21:00 Temperature Temperature Source Pulse Rate 45 L Respiratory Rate Blood Pressure 131/82 H Blood Pressure Mean 98 Pulse Ox 100 Oxygen Delivery Method Positive well nourished and well developed General Appearance ED: well developed; Negative for cyanotic, diaphoretic, NAD or pallor HEENT Reports moist mucous membranes HEENT Narrative: HEENT is unremarkable. Eyes PERRL and EOMs intact bilaterally Neck no lymphadenopathy, supple and no JVD Chest Wall inspection of chest normal and palpation of chest normal Resp normal respiratory effort and clear to auscultation bilaterally Cardio regular rhythm, S1 normal heart sound, S2 normal heart sound and no murmurs Rate: bradycardia GI non-distended and no masses; Negative for normal to inspection, nondistended, normoactive bowel sounds, non-tender or hepatosplenomegaly Auscultation: hypoactive bowel sounds Palpation: soft, tender Romano's sign and guarding Back/Spine no CVA tenderness Extremity normal to inspection General Extremety ED: Negative for edema or tenderness General Extremity: Negative for edema Neuro oriented x3 and CN's II-XII intact bilaterally Sensorium / Orientation: alert Motor Exam: strength 5/5 throughout Psych mental status grossly normal Skin no rashes or lesions noted, no wounds and skin turgor normal General Skin Exam: elasticity normal; Negative for jaundice or pallor MDM MDM MDM Narrative Medical decision making narrative: Patient with known history of cholelithiasis. She follow-up with Dr. Phillips in the remote past. Differential is biliary colic due to cholelithiasis, acute cholecystitis. Will obtain ultrasound appropriate blood work. Will manage her pain and nausea and vomiting. Lab Data Attestation: I reviewed the patient's lab results. Lab results narrative: CBC is normal. Basic metabolic panel was a CO2 of 20.8 with a anion gap of 12. Liver enzymes are normal. Lipase is normal. Labs: Laboratory Results - last 24 hr 06/07/25 19:05 WBC 10.9 RBC 4.40 Hgb 13.3 Hct 37.1 MCV 84.3 MCH 30.2 MCHC 35.8 RDW Std Deviation 37.0 RDW Coeff of Akin 12.3 Plt Count 284 MPV 9.0 Immature Gran % (Auto) 0.300 Neut % (Auto) 76.6 H Lymph % (Auto) 15.9 L [place] % (Auto) 6.0 Eos % (Auto) 0.8 Baso % (Auto) 0.4 Absolute Neuts (auto) 8.4 H Absolute Lymphs (auto) 1.74 Nucleated RBC % 0 Sodium 136 Potassium 4.2 Chloride 104 Carbon Dioxide 20.8 L Anion Gap 12 BUN 7 Creatinine 0.69 L Estim Creat Clear Calc 117.37 Est GFR (MDRD) Non-Af 117 BUN/Creatinine Ratio 10.7 Glucose 109 H Calcium 9.0 Total Bilirubin 0.62 AST 20 ALT 26 Alkaline Phosphatase 50 Total Protein 7.4 Albumin 4.4 Globulin 3.0 Albumin/Globulin Ratio 1.4 Lipase 39 The ultrasound was reviewed by me. I do not see any thickening of the gallbladder wall inflammation of the gallbladder wall. There are multiple gallstones noted. Awaiting formal read by radiologist. Based on radiology's read Dr. Russell who is on-call for Dr. Phillips was notified. He was informed of patient's history and physical. He does not believe this is cholecystitis since there is no gallbladder wall thickening or inflammation and with approxima te 24 hours of pain she has normal labs. Plan is pain management. If pain is not controlled with appropriate opiate analgesics will admit to Dr. Russell to service for pain management. Patient and were made aware of this. She was medicated initially with morphine followed by Dilaudid 0.5 mg x 2. Will reassess by [id number]. If her pain is not under control will recontact Dr. Russell for admission for pain management Radiography Diagnostic Testing: Clinical Impression(s) from Imaging Studies Gallbladder Ultrasound 06/07/25 18:56 IMPRESSION: Equivocal findings for acute cholecystitis with multiple gallstones and positive Romano's sign although gallbladder wall is within normal limits in thickness. Hepatic steatosis. Reading Location: [facility] Treatment and Re-Evaluation :: Patient was reassessed at 2134. She has had a greater than 40% reduction of her pain. She states she can sleep now. She still has some discomfort. It is a 5. Plan is to discharge to home with opiate analgesic. She understands to return if she has severe pain. Also if she has nausea vomiting or develops a fever. Discharge Plan Triage Chief Complaint: Abd Pain ED Provider: TalGrant Dx/Rx/DC Orders Clinical Impression: Biliary colic, Cholelithiasis, Nausea & vomiting, First trimester Instructions: ED Gallstones with Biliary Colic Prescriptions: New oxycodone-acetaminophen 5-325 mg tablet 1 tab PO Q6H PRN PRN (Reason: pain) 5 Days Qty: 20 0RF ondansetron 4 mg tablet,disintegrating 4 mg PO Q8H PRN PRN (Reason: Nausea) Qty: 10 0RF Primary Care Provider: Evelia Bird Referrals: Ahmet Russell MD [Med Staff - Active Staff, General Surgery] - 5-7 Days Marco Phillips MD [Med Staff - Active Staff, General Surgery] - 5-7 Days Evelia Bird NP-C [Primary Care Provider, Family Practice] Activity Restrictions/Additional Instructions: 1. Return if the pain is not controlled by the pain medicine prescribed. 2. If you are unable to eat or drink anything for more than 12 hours return to the emergency department 3. If you develop a temperature greater than 100, your urine becomes a elizabeth or dark color or your eyes appear yellow return to the emergency department immedi ately Print Language: Grenadian Disposition Disposition: Home, Self Care
[2025-06-07 21:00] VITALS: BP 131/82; PULSE 45; O2SAT 100
[2025-06-07 21:47] VITALS: BP 131/82; PULSE 45; RESP 15; TEMP 36.3; O2SAT 100
== END 2025-06-07 22:12 | disposition home or self-care (01) ==
PROVIDERS: Emergency Provider Emergency Medicine; PCP Nurse Practitioner Family; Visit Provider Emergency Medicine
DX: O99.611 Diseases of the digestive system complicating pregnancy, first trimester (principal); K80.20 Calculus of gallbladder without cholecystitis without obstruction; Z3A.01 Less than 8 weeks gestation of pregnancy
CPT/HCPCS: 76705; 80053; 83690; 85025; 96361; 96374; 96375; 96376; 99284; A4216; J2405

== ENCOUNTER 2025-06-08 12:28 | Inpatient (IN) | payer SELFPAY ==
[2025-06-08] VITALS (11 sets, daily range): BP systolic 122–138; BP diastolic 60–85; PULSE 55–77; RESP 14–18; TEMP 37.1–37.4; O2SAT 95–99; BMI 29.9; BMI 29.5
--- NOTE | 2025-06-08 12:49 | US_ITS ---
PROCEDURE: GALLBLADDER 06/08/2025 REASON FOR EXAM: Right upper quadrant pain. TECHNIQUE: Procedure Code: USGB Modality: US Procedure: GALLBLADDER COMPARISON: Prior study dated June 07, 2025. FINDINGS: Liver: Grossly normal size and echotexture. Gallbladder: Multiple gallstones and sludge in the gallbladder lumen. The gallbladder is distended. The gallbladder wall is not thickened. No pericholecystic fluid. Common bile duct: Normal measuring 4.6 mm. . Pancreas: Obscured by bowel gas. Other: Visualized portions of the right kidney are unremarkable. No right upper quadrant ascites. US/Gallbladder IMPRESSION: Distended gallbladder with the sludge and gallstones. The gallbladder is diste nded. No gallbladder wall thickening or pericholecystic fluid. Reading Location: [id number]
--- NOTE | 2025-06-08 12:50 | ED.VIS.GI ---
HPI HPI - GI History of Present Illness Chief Complaint: Abd Pain Narrative Narrative: 34-year-old female found out she was a few days ago presents for the third time within the last 48 hours for right upper quadrant abdominal pain. She states she has known gallstones. She was seen in the emergency department early yesterday morning, then again in the evening. She had an ultrasound which did not show any gallbladder wall thickening. She was sent home on oxycodone/acetaminophen, but states she last took it early in the morning. She states that she developed a fever as high as 101. She was told to return to the emergency department should she develop a fever. She has not taken antipyretics. She states is the same pain that she has been having which brought her to the emergency department initially. She is nauseated. No exacerbating or alleviating factors. PFSH PFS Medical History GERD (gastroesophageal reflux disease) H/O severe pre-eclampsia Home Medications ?Medication ?Instructions ?Recorded ?Last Taken ?Type ondansetron 4 mg disintegrating 4 mg PO Q8H PRN PRN Nausea #10 tabs 06/07/25 Unknown Rx tablet oxycodone-acetaminophen 5 mg-325 1 tab PO Q6H PRN PRN pain 5 days 06/07/25 Unknown Rx mg tablet #20 TABLETS Allergy/AdvReac Type Severity Reaction Status Date / Time No Known Allergies Allergy Verified 06/08/25 12:31 Family History Grandfather Diabetes Surgical History H/O oral surgery S/P Social History household members: spouse and children number of children: 1 current occupational status: employed current occupation: [employer] history of recent travel: No sexually active: Yes Smoking Status: Never smoker alcohol intake: never substance use type: does not use what type of physical activity do you participate in: walking and weight training frequency: 1-2 times per week seatbelt use: always do you feel safe at home: Yes additional social history: - Luke ROS ROS ED ROS Narrative Review of systems is positive for nausea and vomiting with right upper quadrant abdominal pain. Reported fever. No other exacerbating or alleviating factors. EXAM Physical Exam Narrative Exam Narrative: Afebrile. Vital signs noted. Nontoxic-appearing. Cardiovascular semination regular rate and rhythm. Lungs are clear to auscultation bilaterally. The abdomen is soft with mild tenderness to palpation in the right upper quadrant. No guarding or rebound. Difficult to elicit Romano sign. Positive bowel sounds. Const Vital Signs: 06/08/25 12:29 06/08/25 12:31 06/08/25 12:54 Temperature 99.3 F H 99.3 F H Temperature Source Oral Oral Pulse Rate 75 75 61 Respiratory Rate 18 18 14 Blood Pressure 138/78 H 138/78 H 125/66 H Blood Pressure Mean 98 98 85 Pulse Ox 99 99 98 Oxygen Delivery Method Room Air Room Air 06/08/25 13:54 06/08/25 14:54 06/08/25 16:00 Temperature 99.4 F H 99.4 F H 99.3 F H Temperature Source Oral Oral Oral Pulse Rate 70 77 72 Respiratory Rate 14 14 14 Blood Pressure 122/65 H 132/72 H 135/62 H Blood Pressure Mean 84 92 86 Pulse Ox 98 98 99 Oxygen Delivery Method Room Air Room Air Room Air MDM MDM MDM Narrative Medical decision making narrative: I reviewed the patient's prior ED visit, the most recent 1. She had a quantitative measurement of 475. It has not been 48 hours so I do not think that she needs a repeat quantitative measurement as it has not had time to double. She had an ultrasound but there was no gallbladder wall thickening noted. She had a normal white count as well. Given her reported fever of 101, she has slightly elevated temperature of 99.3 here today. The plan was more for pain control. I do feel that she merits repeat laboratory work and a repeat ultrasound to see if there has been any significant change. In review of the ultrasound of the right upper quadrant, while there is no wall thickening she does have gallstones and sludge contained within. I reviewed her laboratory work and now she has a leukocytosis of 17.9 with hemoglobin of 14.6, hematocrit 42.5, platelet count 321. Lipase is normal at 21. LFTs are grossly unremarkable. With the thought of development of cholecystitis and the fact that this is her third visit within 36 hours, I discussed the patient with general surgery, Dr. Juan. In review of her prior ED visit, was noted that she was possibly going to be admitted by general surgery for pain control. In discussion with general surgery, they requested that she be given Protonix 40 mg intravenously as there are no apparent gallstones lodged within the common bile duct. After Protonix, patient states that her pain is unchanged, and she had mild improvement with the Dilaudid. Given that she is still in pain, I rediscussed the patient with general surgery, who requested that patient be discussed with [facility] as she states that she discussed the patient with Dr. Sandra who is on-call for [place] with the thought that this could be an ectopic . However, the office called back and stated that the patient has not been seen for 4 or 5 years, and when asked, the patient states that she still follows up with an [facility] in [facility] as documented by the prior ED physician on review. Hence, they state that she go to the on-call for no doc. General surgery did request that repeat quantitative measurement be obtained. I reviewed the and it is appropriately elevated at 960. I discussed patient with Dr. Thompson, and she is in agreement that with the quantitative measurement that is low, there is extremely low risk for ectopic /rupture of ectopic as nothing would be visualized on the ultrasound as well. Additionally, the patient is having all of her pain in the right upper quadrant. General surgery requested that I inquire about imaging modalities. In discussion with [facility]OL[facility] TE[facility], 1 CT during is generally safe as it is only 3 rad and the limit is 5 rad per imaging modality. Patient was rediscussed with general surgery, Dr. Juan, who requested that CT imaging be performed. I discussed this with the patient as well who is agreeable to receiving CT scan. At this point in time, patient signed out to the oncoming physician, Dr. Ike Gill, who will check for CT results and recontact general surgery for admission. Patient is in stable condition. History & Record Review Discussion w/independent historian: Patient Additional record(s) reviewed:: Prior ED visit and Prior labs Lab Data Attestation: I reviewed the patient's lab results. Labs: Laboratory Results - last 24 hr 06/08/25 06/08/25 12:44 14:40 WBC 17.9 H RBC 4.90 Hgb 14.6 Hct 42.5 MCV 86.7 MCH 29.8 MCHC 34.4 RDW Std Deviation 39.1 RDW Coeff of Akin 12.3 Plt Count 321 MPV 9.0 Immature Gran % (Auto) 0.700 Neut % (Auto) 84.8 H Lymph % (Auto) 6.0 L Maverick % (Auto) 7.8 Eos % (Auto) 0.4 Baso % (Auto) 0.3 Absolute Neuts (auto) 15.2 H Absolute Lymphs (auto) 1.07 Nucleated RBC % 0 Sodium 135 Potassium 4.6 Chloride 101 Carbon Dioxide 22.6 Anion Gap 11 BUN 6 Creatinine 0.90 Estim Creat Clear Calc 89.59 Est GFR (MDRD) Non-Af 86 BUN/Creatinine Ratio 6.4 L Glucose 189 H Calcium 9.0 Total Bilirubin 0.97 AST 21 ALT 25 Alkaline Phosphatase 55 Total Protein 7.8 Albumin 4.5 Globulin 3.3 Albumin/Globulin Ratio 1.4 Lipase 29 HCG, Quant 960 H Radiography Diagnostic Testing: Clinical Impression(s) from Imaging Studies Gallbladder Ultrasound 06/08/25 12:49 IMPRESSION: Distended gallbladder with the sludge and gallstones. The gallbladder is distended. No gallbladder wall thickening or pericholecystic fluid. Reading Location: [facility] Management Discussion w/another healthcare provider: Forensics Team Director (Dr. Thompson, [facility], Dr. Juan general surgery) Discharge Plan Triage Chief Complaint: Abd Pain ED Provider: Randal Fletcher Dx/Rx/DC Orders Clinical Impression: RUQ pain, , Cholelithiasis Prescriptions: No Action oxycodone-acetaminophen 5-325 mg tablet 1 tab PO Q6H PRN PRN (Reason: pain) 5 Days Qty: 20 0RF ondansetron 4 mg tablet,disintegrating 4 mg PO Q8H PRN PRN (Reason: Nausea) Qty: 10 0RF Primary Care Provider: Evelai Bird Referrals: Evelia Bird, [facility] [Primary Care Provider, Family Practice] Print Language: Maltese
[2025-06-08] MEDS: HYDROmorphone 0.5 MG/0.5 ML SYRINGE IV ×3 (12:54→19:00)
[2025-06-08 13:26] LABS: Hematocrit 42.5 % (37-47); Hemoglobin 14.6 g/dL (12.0-15.0); Immature Granulocytes Count 0.130 X10^3/uL (0.0-0.0); Mean Corp Hgb Conc 34.4 g/dL (32-36); Mean Corpuscular Volume 86.7 fL (81-99); Mean Platelet Vol. 9.0 fl (6.2-12.0); NRBC Flagged by Analyzer 0 % (0-5); Platelet Count 321 K/mm3 (150-450); RBC Distribution Width CV 12.3 % (11.6-14.6); RBC Distribution Width SD 39.1 fl (35.1-43.9); Red Blood Count 4.90 M/mm3 (4.2-5.4); White Blood Count 17.9 K/mm3 (4.4-11.0)
[2025-06-08 13:37] LABS: AST(SGOT) 21 U/L (<=31); Alanine Aminotransfer ALT/SGPT 25 U/L (<=34); Albumin, Serum 4.5 g/dL (3.5-5.0); Alkaline Phosphatase 55 U/L (35-104); Anion Gap 11 (5-15); BUN 6 mg/dL (4-19); BUN/Creat Ratio 6.4 RATIO (10-20); Calcium,Total 9.0 mg/dL (7.6-11.0); Carbon Dioxide 22.6 mmol/L (21.0-32.0); Chloride 101 mmol/L (98-108); Estimated Creatinine Clearance 89.59 ml/min (50-250); Globulin 3.3 g/dL (2.2-4.2); Glucose 189 mg/dL (70-99); Lipase 29 U/L (13-75); Potassium 4.6 mmol/L (3.3-5.1)
[2025-06-08] MEDS: Pantoprazole Sodium 40 MG in 0.9% Normal Saline (100mL MB+) 100 ML 300 MG IV (14:28)
[2025-06-08 15:15] LABS: hCG Titer Quant., Serum 960 mIU/mL (<9 non-preg)
--- NOTE | 2025-06-08 16:25 | CT_ITS ---
PROCEDURE: ABDOMEN/PELVIS W IV CONT ONLY 06/08/2025 REASON FOR EXAM: RIGHT UPPER QUADRANT PAIN. Fever, elevated WBC, cholelithiasis, PCOS. 3rd visit to the ER. (+) , 1st trimester. TECHNIQUE: Procedure Code: [id number] Modality: CT Procedure: ABDOMEN/PELVIS W IV CONT ONLY Coronal and Sagittal reconstruction series were provided. CONTRAST: Isovue 370 VOLUME: 100 mL One or more dose reduction techniques were used (e.g., Automated exposure control, adjustment of the mA and/or kV according to patient size, use of iterative reconstruction technique. RADIATION DOSE SUMMARY: CTDlvol: 13.30, 15.26 mGy DLP: 799.46 mGycm COMPARISON: None. FINDINGS: LUNG BASES: No basilar airspace consolidation or pleural effusion. Left lower lobe nodule measuring 2.3 mm. LIVER: Unremarkable. GALLBLADDER: Multiple calcified gallstones, one located in the neck. Diffuse gallbladder wall thickening with moderate pericholecystic fluid. BILE DUCTS: Two stones in the distal common bile duct (CBD) measuring up to 5.4 mm. No ductal dilation. PANCREAS: Unremarkable. SPLEEN: Unremarkable. ADRENAL GLANDS: Unremarkable. KIDNEYS: The kidneys enhance symmetrically. Hypodense 0.6 cm left renal focus, likely a cyst. No hydronephrosis or hydroureter. STOMACH AND BOWEL: No obstruction or perforation. Focal wall thickening of the hepatic flexure, likely secondary inflammation related to the gallbladder process. APPENDIX: Normal-appearing appendix. No CT evidence for appendicitis. RETRO/PERITONEUM: Mild hyperdense (25 HU) fluid in the pelvis. No free air or focal fluid collections. LYMPH NODES: No lymphadenopathy. PELVIC ORGANS: Unremarkable as visualized. Irregular rim hyperdense 2.2 cm cystic lesion in the right ovary, likely a corpus luteum. VASCULATURE: No aortic aneurysm. ABDOMINAL WALL AND SOFT TISSUES: Small fat-containing umbilical hernia. BONES: No acute osseous abnormality seen. Well-defined 2.7 cm central lytic lesion with thin sclerotic margin in the proximal right femoral metaphysis. 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 No associated cortical breakthrough or periosteal reaction. CT/Abdomen/Pelvis W IV Cont ONLY IMPRESSION: 1. Choledocholithiasis with two stones in the distal CBD. No CT signs of bili bhavya obstruction. 2. Cholelithiasis with CT signs of acute cholecystitis. 3. Complex fluid in the pelvis, suggesting blood or infectious material. Reading Location: [id number]
--- NOTE | 2025-06-08 17:22 | HP.PCM.HOS_ITS ---
HPI - General General Date of Admission: 06/08/25 Date of Service: 06/08/25 Chief Complaint: Right upper quadrant pain HPI Narrative TROY LEARY, is a 34 F who presented to [facility] ED on 06/08/2025 with right upper quadrant pain. Patient has no significant past medical history. This is now her third ED visit in the past 48 hours for the same concern. Has known history of gallstones but RUQ ultrasound was negative for acute cholecystitis or CBD dilation, and her labs were benign. Notably, she was found to be at the first ED visit. Has an 8-year-old child and had a miscarriage last summer, so this will be her third . On this ED visit, her WBC count was 17,000. Gallbladder ultrasound appeared similar to previous but CT abdomen pelvis with IV contrast showed choledocholithiasis with 2 non-obstructing stones in the distal CBD as well as cholelithiasis with CT signs of acute cholecystitis. Case was discussed with both surgery and GI, and plan is for ERCP tomorrow for further evaluation. Hospitalist was then contacted for admission. I saw the patient at bedside in the ED, hospitalist present. She had given a dose of IV Dilaudid about an hour before I saw her and stated that her pain was much improved with this. She does feel somewhat nauseous and has had minimal p.o. intake over the past few days. She denies any other acute concerns currently. Will be admitted for further management. [facility] Medical History GERD (gastroesophageal reflux disease) H/O severe pre-eclampsia Home Medications ?Medication ?Instructions ?Recorded ?Last Taken ?Type ondansetron 4 mg disintegrating 4 mg PO Q8H PRN PRN Na usea #10 tabs 06/07/25 Unknown Rx tablet oxycodone-acetaminophen 5 mg-325 1 tab PO Q6H PRN PRN pain 5 days 06/07/25 Unknown Rx mg tablet #20 TABLETS Allergy/AdvReac Type Severity Reaction Status Date / Time No Known Allergies Allergy Verified 06/08/25 12:31 Family History Grandfather Diabetes Surgical History H/O oral surgery S/P Social History household members: spouse and children number of children: 1 current occupational status: employed current occupation: [employer] history of recent travel: No sexually active: Yes Smoking Status: Never smoker alcohol intake: never substance use type: does not use what type of physical activity do you participate in: walking and weight training frequency: 1-2 times per week seatbelt use: always do you feel safe at home: Yes additional social history: - Luke ROS Constitutional Constitutional: Denies chills, fatigue, fever(s) or weakness Eyes Eyes: Denies change in vision Cardiovascular Cardiovascular: Denies chest pain Respiratory/Chest Respiratory/Chest: Denies shortness of breath at rest Gastrointestinal Gastrointestinal: Reports abdominal pain and nausea; Denies constipation, diarrhea or vomiting Musculoskeletal Musculoskeletal: Denies arthralgias or myalgias Neurologic Neurologic: Denies dizziness, focal weakness or headache(s) Vital Signs Vital Signs Vital Signs: 06/08/25 12:29 06/08/25 12:31 06/08/25 12:54 Temperature 99.3 F H 99.3 F H Temperature Source Oral Oral Pulse Rate 75 75 61 Respiratory Rate 18 18 14 Blood Pressure 138/78 H 138/78 H 125/66 H Blood Pressure Mean 98 98 85 Pulse Ox 99 99 98 Oxygen Delivery Method Room Air Room Air 06/08/25 13:54 06/08/25 14:54 06/08/25 16:00 Temperature 99.4 F H 99.4 F H 99.3 F H Temperature Source Oral Oral Oral Pulse Rate 70 77 72 Respiratory Rate 14 14 14 Blood Pressure 122/65 H 132/72 H 135/62 H Blood Pressure Mean 84 92 86 Pulse Ox 98 98 99 Oxygen Delivery Method Room Air Room Air Room Air 06/08/25 17:00 06/08/25 17:16 Temperature 99.3 F H 99.2 F H Temperature Source Oral Pulse Rate 62 62 Respiratory Rate 14 14 Blood Pressure 125/60 H 125/60 H Blood Pressure Mean 81 81 Pulse Ox 98 98 Oxygen Delivery Method Room Air Weight Weight: 79.038 kg Body Mass Index (BMI) 29.9 Physical Exam Const alert, oriented x3, no apparent distress and average body habitus Constitutional Narrative: Younger female, mildly fatigued appearing but otherwise laying back comfortably in bed, conversing normally, in no acute distress. General Appearance: cooperative and comfortable HEENT normocephalic, head/scalp atraumatic, hearing grossly normal bilaterally, nasal mucous membranes and turbinates normal and moist oral mucous membranes Eyes PERRL, EOMs intact bilaterally and conjunctivae normal Neck full ROM Chest inspection of chest normal Resp normal respiratory effort, normal air movement, no use of accessory muscles and clear to auscultation bilaterally Cardio regular rate, regular rhythm, no murmurs and peripheral pulses 2+ throughout GI GI Narrative: Mild tenderness to palpation in the right upper quadrant. Abdomen otherwise soft and nondistended. Back/Spine normal ROM Extremity normal to inspection, full ROM and no pedal edema Skin no rashes or lesions noted Psych mental status grossly normal Results Lab / Micro Data 06/08/25 12:44 06/08/25 12:44 Labs: Laboratory Results - last 24 hr 06/08/25 12:44: WBC 17.9 H, RBC 4.90, Hgb 14.6, Hct 42.5, MCV 86.7, MCH 29.8, MCHC 34.4, RDW Std Deviation 39.1, RDW Coeff of Akin 12.3, Plt Count 321, MPV 9.0, Immature Gran % (Auto) 0.700, Neut % (Auto) 84.8 H, Lymph % (Auto) 6.0 L, Mccreary % (Auto) 7.8, Eos % (Auto) 0.4, Baso % (Auto) 0.3, Absolute Neuts (auto) 15.2 H, Absolute Lymphs (auto) 1.07, Nucleated RBC % 0, Sodium 135, Potassium 4.6, Chloride 101, Carbon Dioxide 22.6, Anion Gap 11, BUN 6, Creatinine 0.90, Estim Creat Clear Calc 89.59, Est GFR (MDRD) Non-Af 86, BUN/Creatinine Ratio 6.4 L, Glucose 189 H, Calcium 9.0, Total Bilirubin 0.97, AST 21, ALT 25, Alkaline Phosphatase 55, Total Protein 7.8, Albumin 4.5, Globulin 3.3, Albumin/Globulin Ratio 1.4, Lipase 29 06/08/25 14:40: HCG, Quant 960 H Imaging Radiology Impression Gallbladder Ultrasound 06/08/25 12:49 IMPRESSION: Distended gallbladder with the sludge and gallstones. The gallbladder is distended. No gallbladder wall thickening or pericholecystic fluid. Reading Location: [id number] Abdomen/Pelvis CT 06/08/25 16:25 IMPRESSION: 1. Choledocholithiasis with two stones in the distal CBD. No CT signs of biliary obstruction. 2. Cholelithiasis with CT signs of acute cholecystitis. 3. Complex fluid in the pelvis, suggesting blood or infectious material. Reading Location: [id number] Assessment & Plan Assessment/Plan (1) Choledocholithiasis: (2) Acute cholecystitis: (3) First trimester : PLAN: Plan Patient is a 34-year-old female who presented to [facility] ED on 06/08/2025 with right upper quadrant pain. 1. Choledocholithiasis with acute cholecystitis ? Admit under inpatient status to [facility]. GI consulted. CT abdomen pelvis on admit showed choledocholithiasis with 2 non-obstructing stones in the distal CBD as well as cholelithiasis with CT signs of acute cholecystitis. Leukocytosis with WBC count 17, LFTs normal. Will plan for ERCP tomorrow, n.p.o. at midnight. Okay for clear liquid diet for now. Continue IV Zosyn. Pain control with Tylenol, oxycodone and IV Dilaudid as needed. 2. First trimester ? Beta-hCG 475 on 06/07 and appropriately doubled to 960 on 06/08. Obstetrics ultrasound on 06/07 with no intrauterine visualized but it is suspected to be too early to visualize the . Will need beta-hCG monitoring and follow-up exams in the outpatient setting. Has an 8-year-old child and did have a miscarriage last year. DVT prophylaxis: Lovenox CODE STATUS: Full code, verified Expected disposition: Home, TBD Total clinical time spent by myself addressing the patient's medical issues, reviewing all the data, and collaborating with patient's care team: 62 minutes. Charges/Coding Visit Charges Inpatient E&M: 72762 Init Hosp L2
[2025-06-08] MEDS: Piperacil/Tazobactam 4.5 GM in 0.9% Normal Saline (100mL MB+) 100 ML IV (17:30)
--- NOTE | 2025-06-08 17:34 | CON.PCM.GI_ITS ---
HPI Consult Data Date of Consult: 06/08/25 HPI Narrative HPI Narrative: TROY LEARY, is a 34-year-old female, 6 weeks (), with a past medical history of GERD and known gallstones. She presents with a few hours of acute pain in the right upper abdomen and right back, associated with nausea but no vomiting. She rates the pain as severe and states it is similar to her history of gallbladder attacks but has not resolved with [id number] medication or time. She denies any recent trauma, excessive activity, history of kidney stones, dysuria, or hematuria. She admits to a history of known gallstones but has not had follow-up for potential cholecystectomy. * Diagnostics: * US/Gallbladder:?Impression: Distended gallbladder with sludge and gallstones. No gallbladder wall thickening or pericholecystic fluid noted. * CT/Abdomen/Pelvis W IV Cont ONLY:?Impression: 1. Choledocholithiasis with two stones in the distal common bile duct (CBD). No CT signs of biliary obstruction. 2. Cholelithiasis with CT signs of acute cholecystitis. [facility] Medical History GERD (gastroesophageal reflux disease) H/O severe pre-eclampsia Home Medications ?Medication ?Instructions ?Recorded ?Last Taken ?Type ondansetron 4 mg disintegrating 4 mg PO Q8H PRN PRN Na usea #10 tabs 06/07/25 Unknown Rx tablet oxycodone-acetaminophen 5 mg-325 1 tab PO Q6H PRN PRN pain 5 days 06/07/25 Unknown Rx mg tablet #20 TABLETS Allergy/AdvReac Type Severity Reaction Status Date / Time No Known Allergies Allergy Verified 06/08/25 12:31 Family History Grandfather Diabetes Surgical History H/O oral surgery S/P Social History household members: spouse and children number of children: 1 current occupational status: employed current occupation: [employer] history of recent travel: No sexually active: Yes Smoking Status: Never smoker alcohol intake: never substance use type: does not use what type of physical activity do you participate in: walking and weight training frequency: 1-2 times per week seatbelt use: always do you feel safe at home: Yes additional social history: - Harshal ALLEN Constitutional Constitutional: Denies fatigue, fever(s), poor appetite, weight gain or weight loss Gastrointestinal Gastrointestinal: Denies belching, bloating, change in bowel habits, change in stool character, chewing difficulty, coffee ground emesis, constipation, cramping, diarrhea, dyspepsia, dysphagia, early satiety, excessive flatus, fecal incontinence, heartburn, hematemesis, hematochezia, hemorrhoids, loose stools, melena, nausea, odynophagia, rectal bleeding, tenesmus, vomiting or weight changes Physical Exam Const alert, oriented x3, no apparent distress and healthy appearing General Appearance: cooperative GI normal to inspection, nondistended, normoactive bowel sounds, soft to palpation, non-tender and non-distended Percussion: normal to percussion Rectal Exam: deferred Lab / Micro Data 06/08/25 12:44 06/08/25 12:44 Labs: Laboratory Results - last 24 hr 06/08/25 12:44: WBC 17.9 H, RBC 4.90, Hgb 14.6, Hct 42.5, MCV 86.7, MCH 29.8, MCHC 34.4, RDW Std Deviation 39.1, RDW Coeff of Akin 12.3, Plt Count 321, MPV 9.0, Immature Gran % (Auto) 0.700, Neut % (Auto) 84.8 H, Lymph % (Auto) 6.0 L, [place] % (Auto) 7.8, Eos % (Auto) 0.4, Baso % (Auto) 0.3, Absolute Neuts (auto) 15.2 H, Absolute Lymphs (auto) 1.07, Nucleated RBC % 0, Sodium 135, Potassium 4.6, Chloride 101, Carbon Dioxide 22.6, Anion Gap 11, BUN 6, Creatinine 0.90, Estim Creat Clear Calc 89.59, Est GFR (MDRD) Non-Af 86, BUN/Creatinine Ratio 6.4 L, Glucose 189 H, Calcium 9.0, Total Bilirubin 0.97, AST 21, ALT 25, Alkaline Phosphatase 55, Total Protein 7.8, Albumin 4.5, Globulin 3.3, Albumin/Globulin Ratio 1.4, Lipase 29 06/08/25 14:40: HCG, Quant 960 H Imaging Radiology Impression Gallbladder Ultrasound 06/08/25 12:49 IMPRESSION: Distended gallbladder with the sludge and gallstones. The gallbladder is distended. No gallbladder wall thickening or pericholecystic fluid. Reading Location: [id number] Abdomen/Pelvis CT 06/08/25 16:25 IMPRESSION: 1. Choledocholithiasis with two stones in the distal CBD. No CT signs of biliary obstruction. 2. Cholelithiasis with CT signs of acute cholecystitis. 3. Complex fluid in the pelvis, suggesting blood or infectious material. Reading Location: [id number] Assessment & Plan Assessment/Plan (1) Choledocholithiasis: (2) Nausea & vomiting: (3) Cholelithiasis: (4) Biliary colic: PLAN: 34-year-old female, 6 weeks , presenting with acute cholecystitis and choledocholithiasis. * Acute calculous cholecystitis:?Based on classic clinical symptoms (RUQ pain, nausea) and imaging findings (gallstones, gallbladder distension). * Choledocholithiasis:?Two stones noted in the distal CBD on CT imaging. * (6 weeks gestation):?First trimester is a major consideration for management planning due to potential risks associated with interventions. * Gastroesophageal Reflux Disease (GERD):?Chronic condition, currently managed. Plan * Inpatient Management:?Admit to the hospital. Initial treatment to include bowel rest (NPO status), intravenous hydration, analgesia (pain management with safe medication for ), and intravenous broad-spectrum antibiotics (e.g., a third-generation cephalosporin plus metronidazole) to manage the acute cholecystitis. * She will need a therapeutic Endoscopic Retrograde Cholangiopancreatography (ERCP) for stone removal from the common bile duct, as the patient has confirmed choledocholithiasis, which is a strong indication for therapeutic intervention during to prevent complications like cholangitis or pancreatitis. * Surgery Consultation:?Consult General Surgery. Surgical management with laparoscopic cholecystectomy is the recommended treatment for symptomatic gallbladder disease during , ideally planned during the second trimester if possible, to minimize the risk of recurrent attacks and potential complications. * Obstetrics/Gynecology ([employer]) Consultation:?Consult [employer] for co-management of the , monitoring, and discussion of the risks and benefits of procedures during the first trimester. * Diagnostics:?Order complete blood count (CBC) and liver function tests (LFTs) to assess for signs of infection or obstruction. * Patient Education:?Auto Appraiser patient on the importance of managing gallstone disease during and the planned course of action involving initial medical management followed by ERCP and eventual cholecystectomy to prevent future, potentially life-threatening, complications for both mother and fetus. Charges/Coding Visit Charges Inpatient E&M: 90385 Init Hosp L3
--- OUTSIDE RECORDS SUMMARY | 2025-06-08 18:41 | XMS RPT_ITS | CCD ---
Author Organization [facility] Inform ion Partnership ACETYLENE CUTTER [facility] Care Team Providers Care Tug Hand Name Role Phone [employer] Unavailable Unavailable NO REFERRING DR Unavailable Unavailable DON FRANKEL Unavailable Unavailable Care Physician, No Primary Primary Care Provider Unavailable Care Physician, No Primary Referring Provider Un available Dr. Marco Phillips Attending Provider RADHA SHAH, DR GILBERTO Kimbrough Primary Care Physician [phone] Kelsy Macdonald NP Referring Unavailabl e Renae POT FIREMANKelsy Attending Unavailabl e Care Physician, No Primary Primary Care Unava ilable KELSY MACDONALD CNP Attending Unavailable KELSY MACDONALD CNP Consulting Unavailable KELSY MACDONALD CNP Primary Care Unavailable KELSY MACDONALD CNP Admitting Unavailable PROVIDER, UNKNOWN Consulting Unavailable RADHA SHAH, DR GILBERTO Kimbrough Primary Care Unavailab buck GARRETT BARREL POLISHER INSIDE-CNM, STEFANIA Tan Attending Gloria vailable Problems Active [...] 4:01:29 PM Ordering Provider: STEFANIA GARRETT RP [facility] US RUQ (GB/PANCREAS)on 07-19 US RUQ (GB/PANCREAS) [place] [address] Patient: TROY LEARY Phone#: : 1990 Age: 33 Gender: F Pt. Type: Out Account: [id number] Location: Ordering: KELSY MACDONALD Exam Date: 07/19/2024/10:16 Family Phys: Charge Code: 881933 Physician: [place] Order #: [id number] Dose#: PROCEDURE: RUQ (GB) ULTRASOUND COMPARISON: None. INDICATIONS: RUQ pain FINDINGS: LIVER: Normal. Normal size and echotexture. No significant masses. BILIARY: Multiple gallbladder calculi are present. Rn Oncology calculus is 8 millimeters in diameter. The gallbladder wall is minimally in thickness. The common bile duct is normal at 1.1 millimeter. PANCREAS: Normal. No visible mass, abnormal atrophy, or ductal dilatation. RIGHT KIDNEY: Normal. No mass or obstruction. OTHER: Negative. CONCLUSION: 1. Cholelithiasis. DICTATED BY: ROSITA GERARDO MD ON 07/19/2024 AT 11:09 APPROVED BY: ROSITA GERARDO MD ON 07/19/2024 AT 11:11 Normal [facility] Amylaseon 07-08-2024 KATE 63 U/L Normal 25-115 [facility] Comment on above: Performed By: #### L 501.9520, L500.4050, L506.0400, L501.2400, L501.85754, L501.2450, L100.0100 #### [facility] [address] [place], [address] CBC W/Diff, Automatedon 06-20 Absolute Lymph 1.64 X10 3/uL Normal 0.83-4.51 [facility] Comment on above: Performed By: #### L 501.9520, L500.4050, L506.0400, L501.2400, L501.44720, L501.2450, L100.0100 #### [facility] [address] [place], [address] Absolute Neut 3.4 X10 3/uL Normal 2.0-7.7 [facility] Comment on above: Performed By: #### L 501.9520, L500.4050, L506.0400, L501.2400, L501.79421, L501.2450, L100.0100 #### [facility] [address] [place], [address] Basophils/100 WBC (Bld) 0.7 % Normal 0-1 [facility] Comment on above: Performed By: #### L 501.9520, L500.4050, L506.0400, L501.2400, L501.38576, L501.2450, L100.0100 #### [facility] [address] [place], [address] Eosinophils/100 WBC (Bld) 10.6 % High 0-5 [facility] Comment on above: Performed By: #### L 501.9520, L500.4050, L506.0400, L501.2400, L501.08641, L501.2450, L100.0100 #### [facility] [address] [place], [address] Erythrocyte distribution width (RBC) [Ratio] 11.9 % Normal 11.6-14.6 [facility] Comment on above: Performed By: #### L 501.9520, L500.4050, L506.0400, L501.2400, L501.98342, L501.2450, L100.0100 #### [facility] [address] [place], [address] Hematocrit (Bld) [Volume fraction] 43.2 % Normal 37-47 [facility] Comment on above: Performed By: #### L 501.9520, L500.4050, L506.0400, L501.2400, L501.49486, L501.2450, L100.0100 #### [facility] [address] [place], [address] Hemoglobin (Bld) [Mass/Vol] 14.6 g/dL Normal 12.0-15.0 [facility] Comment on above: Performed By: #### L 501.9520, L500.4050, L506.0400, L501.2400, L501.51980, L501.2450, L100.0100 #### [facility] [address] [place], [address] IG% 0.300 Normal 0.0-0.9 [facility] Comment on above: Result Comment: IG% - Immature Granulocytes (promyelocytes, myelocytes and metamyelocytes) > 1% indicates that a LEFT SHIFT is Present. Performed By: #### L 501.9520, L500.4050, L506.0400, L501.2400, L501.49925, L501.2450, L100.0100 #### [facility] [address] [place], [address] Lymphocytes/100 WBC (Bld) 26.7 % Normal 19-41 [facility] Comment on above: Performed By: #### L 501.9520, L500.4050, L506.0400, L501.2400, L501.72317, L501.2450, L100.0100 #### [facility] [address] [facility] [place], [address] MCH (RBC) [Entitic mass] 28.7 pg Normal 27.0-32.0 [facility] Comment on above: Performed By: #### L 501.9520, L500.4050, L506.0400, L501.2400, L501.95992, L501.2450, L100.0100 #### [facility] [address] [facility] [place], [address] MCHC (RBC) [Mass/Vol] 33.8 g/dL Normal 32-36 [facility] Comment on above: Performed By: #### L 501.9520, L500.4050, L506.0400, L501.2400, L501.46121, L501.2450, L100.0100 #### [facility] [address] [place], [address] MCV (RBC) [Entitic vol] 85.0 fL Normal 81-99 [facility] Comment on above: Performed By: #### L 501.9520, L500.4050, L506.0400, L501.2400, L501.65696, L501.2450, L100.0100 #### [facility] [address] [place], [address] Monocytes/100 WBC (Bld) 6.3 % Normal 0-10 [facility] Comment on above: Performed By: #### L 501.9520, L500.4050, L506.0400, L501.2400, L501.35102, L501.2450, L100.0100 #### [facility] [address] [place], [address] Neutrophils/100 WBC (Bld) 55.4 % Normal 47-70 [facility] Comment on above: Performed By: #### L 501.9520, L500.4050, L506.0400, L501.2400, L501.59636, L501.2450, L100.0100 #### [facility] [address] [place], [address] Nucleated RBC (Bld) [#/Vol] 0 10*3/uL Normal 0-5 [facility] Comment on above: Performed By: #### L 501.9520, L500.4050, L506.0400, L501.2400, L501.84674, L501.2450, L100.0100 #### [facility] [address] [place], [address] Platelet mean volume (Bld) [Entitic vol] 9.4 fL Normal 6.2-12.0 [facility] Comment on above: Performed By: #### L 501.9520, L500.4050, L506.0400, L501.2400, L501.84421, L501.2450, L100.0100 #### [facility] [address] [place], [address] Platelets (Bld) [#/Vol] 268 10*3/uL Normal 150-450 [facility] Comment on above: Performed By: #### L 501.9520, L500.4050, L506.0400, L501.2400, L501.09399, L501.2450, L100.0100 #### [facility] [address] [place], [address] (026) RBC (Bld) [#/Vol] 5.08 10*6/uL Normal 4.2-5.4 [facility] Comment on above: Performed By: #### L 501.9520, L500.4050, L506.0400, L501.2400, L501.79241, L501.2450, L100.0100 #### [facility] [address] [place], [address] (608) RDW SD 35.8 fl Normal 35.1-43.9 [facility] Comment on above: Performed By: #### L 501.9520, L500.4050, L506.0400, L501.2400, L501.40490, L501.2450, L100.0100 #### [facility] [address] [place], [address] WBC (Bld) [#/Vol] 6.2 10*3/uL Normal 4.4-11.0 [facility] Comment on above: Performed By: #### L 501.9520, L500.4050, L506.0400, L501.2400, L501.25494, L501.2450, L100.0100 #### [facility] [address] [place], [address] Comprehensive Metabolic Prof ilon 07-08-2024 Albumin [Mass/Vol] 4.0 g/dL Normal 3.2-5.0 [facility] Comment on above: Performed By: #### L 501.9520, L500.4050, L506.0400, L501.2400, L501.00840, L501.2450, L100.0100 #### [facility] [address] [place], [address] Albumin/Globulin [Mass ratio] 1.2 {ratio} Normal 0.9-2.4 [facility] Comment on above: Performed By: #### L 501.9520, L500.4050, L506.0400, L501.2400, L501.41817, L501.2450, L100.0100 #### [facility] [address] [place], [address] ALK P 64 U/L Normal 45-117 [facility] Comment on above: Performed By: #### L 501.9520, L500.4050, L506.0400, L501.2400, L501.18623, L501.2450, L100.0100 #### [facility] [address] [place], [address] ALT [Catalytic activity/Vol] 37 U/L Normal 13-56 [facility] Comment on above: Performed By: #### L 501.9520, L500.4050, L506.0400, L501.2400, L501.99633, L501.2450, L100.0100 #### [facility] [address] [place], [address] AST [Catalytic activity/Vol] 16 U/L Normal 15-37 [facility] Comment on above: Performed By: #### L 501.9520, L500.4050, L506.0400, L501.2400, L501.76421, L501.2450, L100.0100 #### [facility] [address] [place], [address] Bilirubin [Mass/Vol] 0.50 mg/dL Normal 0.20-1.00 [facility] Comment on above: Result Comment: For patients on eltrombopag therapy, use of Dimension [place] TBIL is not recommended. Performed By: #### L 501.9520, L500.4050, L506.0400, L501.2400, L501.07226, L501.2450, L100.0100 #### [facility] [address] [place], [address] BUN/CRE 16.7 RATIO Normal 10-20 [facility] Comment on above: Performed By: #### L 501.9520, L500.4050, L506.0400, L501.2400, L501.12600, L501.2450, L100.0100 #### [facility] [address] [place], [address] CA,Total 9.3 mg/dL Normal 8.5-10.1 [facility] Comment on above: Performed By: #### L 501.9520, L500.4050, L506.0400, L501.2400, L501.31564, L501.2450, L100.0100 #### [facility] [address] [place], [address] Chloride [Moles/Vol] 106 mmol/L Normal 98-107 [facility] Comment on above: Performed By: #### L 501.9520, L500.4050, L506.0400, L501.2400, L501.31198, L501.2450, L100.0100 #### [facility] [address] [place], [address] CO2 [Moles/Vol] 28.0 mmol/L Normal 21.0-32.0 [facility] Comment on above: Performed By: #### L 501.9520, L500.4050, L506.0400, L501.2400, L501.43196, L501.2450, L100.0100 #### [facility] [address] [place], [address] Creatinine [Mass/Vol] 0.72 mg/dL Normal 0.55-1.02 [facility] Comment on above: Result Comment: The validity of the calculated GFR GFRAA in patients over 70 years has not been determined. Clinical correlation is essential. Performed By: #### L 501.9520, L500.4050, L506.0400, L501.2400, L501.26452, L501.2450, L100.0100 #### [facility] [address] [place], [address] EST GFR - AA 120 mL/min Normal >60 [facility] Comment on above: Result Comment: Afri can [place] GFR Calc Performed By: #### L 501.9520, L500.4050, L506.0400, L501.2400, L501.39962, L501.2450, L100.0100 #### [facility] [address] [place], [address] GAP 5 Normal 5-15 [facility] Comment on above: Performed By: #### L 501.9520, L500.4050, L506.0400, L501.2400, L501.80517, L501.2450, L100.0100 #### [facility] [address] [place], [address] GFR/1.73 sq M.predicted among non-blacks MDRD (S/P/Bld) [Vol rate/Area] 99 mL/min/{1.73_m2} Normal >60 [facility] Comment on above: Result Comment: Non- GFR Calc Performed By: #### L 501.9520, L500.4050, L506.0400, L501.2400, L501.46028, L501.2450, L100.0100 #### [facility] [address] [place], [address] Globulin (S) [Mass/Vol] 3.4 g/dL Normal 2.2-4.2 [facility] Comment on above: Performed By: #### L 501.9520, L500.4050, L506.0400, L501.2400, L501.99445, L501.2450, L100.0100 #### [facility] [address] [place], [address] Glucose [Mass/Vol] 80 mg/dL Normal 74-106 [facility] Comment on above: Performed By: #### L 501.9520, L500.4050, L506.0400, L501.2400, L501.93374, L501.2450, L100.0100 #### [facility] [address] [place], [address] Potassium [Moles/Vol] 4.1 mmol/L Normal 3.5-5.1 [facility] Comment on above: Performed By: #### L 501.9520, L500.4050, L506.0400, L501.2400, L501.09797, L501.2450, L100.0100 #### [facility] [address] [place], [address] Sodium [Moles/Vol] 138 mmol/L Normal 136-145 [facility] Comment on above: Performed By: #### L 501.9520, L500.4050, L506.0400, L501.2400, L501.14470, L501.2450, L100.0100 #### [facility] [address] [place], [address] T PROT 7.4 g/dL Normal 6.4-8.2 [facility] Comment on above: Performed By: #### L 501.9520, L500.4050, L506.0400, L501.2400, L501.74034, L501.2450, L100.0100 #### [facility] [address] [place], [address] Urea nitrogen [Mass/Vol] 12 mg/dL Normal 7-18 [facility] Comment on above: Performed By: #### L 501.9520, L500.4050, L506.0400, L501.2400, L501.40520, L501.2450, L100.0100 #### [facility] [address] [place], [address] Free T3on 07-08-2024 Free T3 [Mass/Vol] 2.7 pg/mL Normal 2.18-3.98 [facility] Comment on above: Performed By: #### L 501.9520, L500.4050, L506.0400, L501.2400, L501.91958, L501.2450, L100.0100 #### [facility] [address] [place], [address] Lipaseon 07-08-2024 Lipase [Catalytic activity/Vol] 72 U/L Normal 13-75 [facility] Comment on above: Result Comment: Lynn jackson note: LIPASE revised reference range effective 22. New Lipase methodology. Expected to produce lower values than the previous assay method. NEW Reference Range: 13 - 75 U/L Performed By: #### L 501.9520, L500.4050, L506.0400, L501.2400, L501.18675, L501.2450, L100.0100 #### [facility] [address] [place], [address] T4 Free Directon 07-08-2024 T4 FREE DIRECT 0.98 ng/dL Normal 0.76-1.46 [facility] Comment on above: Performed By: #### L 501.9520, L500.4050, L506.0400, L501.2400, L501.10656, L501.2450, L100.0100 #### [facility] [address] [place], [address] Thyroid Stim Hormone (TSH)on 07-08-2024 TSH 1.210 uIU/mL Normal 0.358-3.740 [facility] Comment on above: Performed By: #### L 501.9520, L500.4050, L506.0400, L501.2400, L501.21155, L501.2450, L100.0100 #### [facility] [address] [place], [address] Vital Signs Date Time Vital Sign Value Performing Clinician Aurelio roman 11-14-2021 13:59-0400 Body height 160.02 cm No Primary Care Physician [facility] Work Phone: 11-14-2021 13:59-0400 Body mass index (BMI) [Ratio] 31.8 kg/m2 No Primary Care Physician [facility] Work Phone: 11-14-2021 13:59-0400 Body weight 81.64 kg No Primary Care Physician [facility] Work Phone: 11-14-2021 13:59-0400 Diastolic blood pressure 85 mm[Hg] No Primary Care Physician [facility] Work Phone: 11-14-2021 13:59-0400 Respiratory rate 16 /min No Primary Care Physician [facility] Work Phone: 11-14-2021 13:59-0400 Systolic blood pressure 139 mm[Hg] No Primary Care Physician [facility] Work Phone: 11-06-2021 00:51-0400 Body height 160.02 cm [facility] Work Phone: 11-06-2021 00:51-0400 Body mass index (BMI) [Ratio] 32.4 kg/m2 [facility] Work Phone: 11-06-2021 00:51-0400 Body temperature 96.7 [degF] [facility] Work Phone: 11-06-2021 00:51-0400 Body weight 83 kg [facility] Work Phone: 11-06-2021 00:51-0400 Diastolic blood pressure 83 mm[Hg] [facility] Work Phone: 11-06-2021 00:51-0400 Heart rate 46 /min [facility] Work Phone: 11-06-2021 00:51-0400 Respiratory rate 15 /min [facility] Work Phone: 11-06-2021 00:51-0400 SaO2% (BldA) [Mass fraction] 99 % [facility] Work Phone: 11-06-2021 00:51-0400 Systolic blood pressure 132 mm[Hg] [facility] Work Phone: Encounters Encounter Date Encounter Type Care Provider Facility Start: 05-10-2025 End: 05-10-[address] GILBERTO GARCIA MD Facility:[facility] Start: 05-10-2025 End: 05-10-2025 Patient encounter procedure STEFANIA GARRETT BARREL POLISHER [facility] Start: 07-19-2024 End: 07-19-2024 ambulatory KELSY MACDONALD [facility] Start: 07-08-2024 ambulatory Kelsy Macdoanld NP Fa cility:[facility] Start: 03-30-2024 End: 03-30-2024 Patient encounter procedure STEFANIA GARRETT BARREL POL[employer] [facility] Start: 11-18-2021 End: 11-18-2021 Patient encounter procedure No Primary Care Physician [facility] Start: 11-14-2021 End: 11-14-2021 Patient encounter procedure No Primary Care Physician [facility] Start: 11-06-2021 End: 04-20-2022 Emergency department patient visit [facility] Start: 11-11-2016 End: 11-11-2016 Emergency department patient visit [facility] Facility:[facility] Procedures Date Procedure Procedure Detail Performing Clinician Start: 11-18-2021 US scan of gallbladder No Primary Care Physician Plan of Treatment Date Care Activity Detail Author Patient Education ED Gallstones with Bili bhavya Colic [facility] Work Phone: Patient referral [facility] Work Phone: Payers Date Payer Category Payer Self-pay [id number] 1990 Unknown [id number] 1990 Unknown [id number] Unknown [id number] Unknown SELF PAY INSURANCE [id number] Unknown [id number] Unknown Social History Date Type Detail Facility [facility] Work Phone: Start: 11-06-2021 End: 11-14-2021 Tobacco smoking status NHIS Unknown if ever smoked [facility] Work Phone: Start: 11-01-2019 None [facility] Work Phone: Start: 1990 Sex Assigned At Female W [facility] Work Phone: Tobacco smoking status [facility] Start: 08-07-2015 Sex Female (finding) [facility] Clinical Note 05-10-2025 Note Date & Type Note Facility 05-10-2025 Note Exam Date Time Procedure Performing Provider Status 05/10/25 11:23 AM US Pelvis Non-OB W/Transvaginal PAULA MCKINNON MD; Auth (Verified) [id number] ORIGINAL EXAMINATION: Ultrasound pelvis, 05/10/2025 11:29 am [...] 4:01:29 PM Ordering Provider: STEFANIA GARRETT RP [facility] Evaluation + Plan note Note Date & Type Note Facility Evaluation + Plan note No data available for this section [facility] Evaluation note Note Date & Type Note Facility Evaluation note No assessment information availa ble [facility] Work Phone: Evaluation note Note Date & Type Note Facility Evaluation note Diagnosis Onset Date Cholelithiasis acute RUQ pain acute [facility] Work Phone: Hospital Discharge instructions Note [...] feeding tube, life support and prolonged hospitalization. [facility] Work Phone: Hospital Discharge instructions Note Date & Type Note Facility Hospital Discharge instructions [facility] Work Phone: Hospital Discharge instructions Note Date & Type Note Facility Hospital Discharge instructions No data available for this section [facility] Progress note Note Date & Type Note Facility Progress note No data available for this section [facility] Summary Purpose Family History No Family History Records Found Relationship Condition Age at Onset Recorded Date/T kanu grandfather Diabetes mellitus Unknown Advance Directives No Advanced Directives Records Found Advance Directive Response Recorded Date/ Time Living Will No November 06, 2021 12:55am Power of Extrusion Bender No November 06 12:55am Chief Complaint and Reason for Visit Chief Complaint abd pain Chief Complaint abd pain POSSIBLE GALLBLADDER. ED 11/06 RUQ ABD PAIN Reason for Visit Cholelithiasis RUQ pain Additional Source Comments INFORMATION SOURCE (unrecogn ized section and content) DATE CREATED AUTHOR 01/13/2018 [facility] DATE CREATED AUTHOR AUTHOR'S ORGANIZ ATION 07/11/2024 [facility] DATE CREATED AUTHOR AUTHOR'S ORGANIZ ATION 07/28/2024 [facility] DATE CREATED AUTHOR AUTHOR'S ORGANIZ ATION 05/14/2025 [facility] Goals (unrecognized section and content) Goals may be documented in a n alternate sectionGoals may be documented in an alternate section No data available for this section No data available for this section Patient Care team informatio n (unrecognized section and content) Care Team Personnel Name: GILBERTO GARCIA MD Member Role: Primary Care Physician Address: Address: [address] [place] [id number]- Care Team Related Persons Name: RICHARD LEARY Address: [address] [place] [address] Care Team Personnel Name: GILBERTO GARCIA MD Member Role: Primary Care Physician Address: [address] [place] [address]- [place] [employer]: Care Team Related Persons Name: [...] BE BASED ON THE PRIMARY CLINICAL RECORDS. [facility]. provides no warranty or guarantee of the accuracy or completeness of information in this document.
[2025-06-08] MEDS: 0.9% Saline Lock 10 ML Syringe IV ×3 (19:06→21:07)
[2025-06-08] MEDS: 0.9% Normal Saline (250mL Bag) 250 ML 75 ML IV (19:06)
[2025-06-08] MEDS: 0.9% Normal Saline (1000mL) 1,000 ML 75 ML IV (19:57)
[2025-06-08] MEDS: Piperacil/Tazobactam 3.375 GM in 0.9% Normal Saline (50mL MB+) 50 ML IV (20:36)
[2025-06-09] VITALS (15 sets, daily range): BP systolic 122–133; BP diastolic 71–85; PULSE 69–92; RESP 16–18; TEMP 36.4–37.9; O2SAT 94–99; BMI 29.3
[2025-06-09] MEDS: HYDROmorphone 0.5 MG/0.5 ML SYRINGE IV ×4 (00:23→22:08)
[2025-06-09] MEDS: 0.9% Saline Lock 10 ML Syringe IV ×2 (00:23→22:09)
[2025-06-09] MEDS: Piperacil/Tazobactam 3.375 GM in 0.9% Normal Saline (50mL MB+) 50 ML IV ×3 (06:20→22:07)
[2025-06-09 08:40] LABS: Hematocrit 38.2 % (37-47); Hemoglobin 13.2 g/dL (12.0-15.0); Immature Granulocytes Count 0.070 X10^3/uL (0.0-0.0); Mean Corp Hgb Conc 34.6 g/dL (32-36); Mean Corpuscular Volume 86.2 fL (81-99); Mean Platelet Vol. 8.8 fl (6.2-12.0); NRBC Flagged by Analyzer 0 % (0-5); Platelet Count 235 K/mm3 (150-450); RBC Distribution Width CV 12.3 % (11.6-14.6); RBC Distribution Width SD 38.5 fl (35.1-43.9); Red Blood Count 4.43 M/mm3 (4.2-5.4); White Blood Count 17.0 K/mm3 (4.4-11.0)
--- NOTE | 2025-06-09 08:54 | CASEMGMT ---
JORDY VANEGAS NOTE:? Dx:?Acute cholecystitis Strata:?2 6 click:?24 No therapy ordered.? No CM consult ordered.? Pt has a PCP listed in [facility]. Medical record reviewed and patient evaluated for identification of discharge planning needs. Patient does not currently demonstrate a need for discharge planning by JORDY VANEGAS. CM will continue to be available for any discharge needs that may arise, and intervene as indicated. Nichole LUNA RN, CM
[2025-06-09 09:01] LABS: AST(SGOT) 16 U/L (<=31); Alanine Aminotransfer ALT/SGPT 25 U/L (<=34); Albumin, Serum 3.7 g/dL (3.5-5.0); Alkaline Phosphatase 51 U/L (35-104); Anion Gap 12 (5-15); BUN 7 mg/dL (4-19); BUN/Creat Ratio 9.5 RATIO (10-20); Calcium,Total 8.5 mg/dL (7.6-11.0); Carbon Dioxide 19.6 mmol/L (21.0-32.0); Chloride 103 mmol/L (98-108); Estimated Creatinine Clearance 111.20 ml/min (50-250); Globulin 3.0 g/dL (2.2-4.2); Glucose 94 mg/dL (70-99); Potassium 3.8 mmol/L (3.3-5.1)
--- NOTE | 2025-06-09 11:00 | EGD_PTH ---
PATIENT: TROY LEARY LOC: MS3 U#:[id number] AGE/SX: 34/F ROOM: ID322 RE06/08/[address]: Dr. Ramona Herrera MD : 1990 BED: 1 DIS: 06/11/2025 SPEC #: [id number] RECD: 06/09/25 14:00 STATUS: ZOILA REQ #: [id number] DARIEAL: 06/09/25 11:[address]: Lopez Clarke DEPT: SURGICAL PATHOLOGY RECD BY: Francisco Noonan ENTERED: 06/09/25 14:51 SP TYPE: EGD BIOPSY OTHR DR: DO Dr. Aditya Mo MD Dr. Prakash Chand, MD Dr. Paige Pierce, MD Heather Evans, SHIFT COORDINATOR-C Razia Leo NP-C CHRISTOPHER Roger Tissues: A - Biliary tract, NOS Procedures: Surgery Specimen Level IV Comments: @ Ordering doctor for SUIV edited from to @ by IQRA at 06/09/25 8253 @ Submitting doctor edited from to @ fransico ESCALONA at 06/09/25 6010 HEADER OPERATION: ERCP with sphincterotomy, balloon sweep, spy glass, biopsy PRE-OP DIAGNOSIS: Choledocholithiasis, nausea / vomiting, cholelithiasis, biliary colic TISSUE SUBMITTED: A- Right intrahepatic duct stricture biopsy - spy bites MICROSCOPIC DIAGNOSIS A. Intrahepatic duct, stricture, right, biopsy: * Fragments of superficial ductal epithelium with areas of acute and chronic inflammation with reactive changes MICROSCOPIC DESCRIPTION Slides are reviewed. GROSS DESCRIPTION A. Received in formalin labeled with the patient's name and date of . Designated as right intrahepatic duct stricture BX spy bites are wispy portions of white to yellow tissue, 0.8 x 0.5 x <0.1 cm in aggregate. Entirely submitted in 1 cassette. Entirety of the specimen may not survive processing. ID 06/09/2025 CPT:[id number]
--- NOTE | 2025-06-09 11:40 | PRE.ANES_ITS ---
ASA Classification* ASA Classification ASA Classification: 2 Assessment & Plan Anesthesia* Anesthesia Assessment Anesthesia Assessment: Discussed sedation and/or anesthesia options, risks, benefits, and alternatives with patient/parents/legal guardian/POA. Questions invited. The patient/parents/legal guardian/POA seems to understand and agrees to proceed with anesthesia plan. Reviewed the physical assessment, medical history, allergy history and patient home medications list prior to surgery/procedure/anesthetic and documented any changes. Performed airway and anesthesia risk assessments. Anesthesia Type Anesthesia Type: General (Patient 6 weeks IUP.) Anesthesia Focused Assessment* Temperature: 98.5 F Pulse Rate: 83 Blood Pressure: 133/79 Respiratory Rate: 16 Pulse Ox: 98 Airway Assessment Mouth opens: >3 cm Mallampati Score: II Labs Anesthesia Preop lab: CBC WBC, (4.4-11.0) 17.0 K/mm3 H Today, 08:30 RBC, (4.2-5.4) 4.43 M/mm3 Today, 08:30 Hgb, (12.0-15.0) 13.2 g/dL Today, 08:30 Hct, (37-47) 38.2 % Today, 08:30 Plt Count, (150-450) 235 K/mm3 Today, 08:30 CHEMISTRY Potassium, (3.3-5.1) 3.8 mmol/L Today, 08:30 Sodium, (133-145) 135 mmol/L Today, 08:30 BUN, (4-19) 7 mg/dL Today, 08:30 Creatinine, (0.70-1.20) 0.72 mg/dL Today, 08:30 Glucose, (70-99) 94 mg/dL Today, 08:30 TSH, (0.358-3.740) 1.210 uIU/mL 07/08/24, 09:30 COAG PT, (11.7-14.9) 11.4 SECONDS L 10/16/16, 16:45 HCG, Quant, (<9 non-preg) 960 mIU/mL H 06/08/25, 14:4 0 Pre-Assessment Diagnosis/Proposed Procedure Planned Operative Procedure(s): ERCP Anesthesia History Anesthesia History - chief optometry service: Anesthesia History - chief optometry service Hx Hospitalization Any Problems With Anesthesia No 06/09/25 09:01 Cholinesterase deficiency No 06/09/25 09:01 You/Your Family Experience No 06/09/25 09:01 fever (hyperthermia) with Relationship Recent Exposure to Contagious No 06/09/25 09:01 Disease Does patient have nerve No 06/09/25 09:01 stimulator Patient instructed to have device shut off --Does patient have Pacemaker No 06/09/25 09:01 or ICD? When Was Last Pacemaker Check QUESTION #4 FULL TEXT: You/Your Family Experience fever (hyperthermia) with Anesthesia Last Oral Intake Last Oral intake: Last Oral Intake NPO since 00:00 06/09/25 09:01 Meds taken in AM with sips of No 06/09/25 09:01 water? Meds patient instructed to take am of surgery PONV PONV - chief optometry service: PONV - chief optometry service Female HX of Motion Sickness HX of N/V After Surgery Non-Smoker Duration of Surgery greater than 60 minutes Number of Risk Factors PONV Score Height & Weight Height & Weight: Anesthesia: Height & Weight Height 5 ft 4.17 in 06/09/25 09:01 Weight: 77.9 kg 06/09/25 09:01 Body Mass Index (BMI) 29.3 06/09/25 09:01 Respiratory Assessment Respiratory Assessment - chief optometry service: Respiratory Tract Infection Hx - chief optometry service Hx Respiratory Tract Infection No 06/09/25 09:01 STOP Sleep Apnea STOP Sleep Apnea - chief optometry service: STOP Sleep Apnea - chief optometry service Hx Hypertension No 06/08/25 19:50 Hx Sleep Apnea No 06/08/25 19:50 CPAP BIPAP Do you snore loudly (louder No 06/08/25 19:50 than talking or can be heard Do you often feel tired/ No 06/08/25 19:50 fatigued/ sleepy during daytime? Has anyone observed you stop No 06/08/25 19:50 breathing during sleep? STOP Results Negative 06/08/25 19:50 QUESTION #5 FULL TEXT : Do you snore loudly (louder than talking or can be heard through closed doors)? Tobacco Use History Tobacco Use History - chief optometry service: Tobacco Use History - chief optometry service Tobacco Use Smoking Status Never smoker 06/08/25 19:50 Hx Tobacco Use No 06/08/25 19:50 Years Smoking Packs Smoked per Day Smoking Cessation Date was within the last 15 years Hx Smoking Cessation Date Hx Smoking Cessation Counseling Hematologic Medial History Hematologic Hx - chief optometry service: Hematologic Medical Hx - documentation specialist Hx of Blood Transfusion No 06/08/25 19:50 Hx of Transfusion in last 3 No 06/08/25 19:50 Months Date of Last Transfusion (if within last 3 months) Ever experience any problems No 06/08/25 19:50 with transfusion(s)? Specify any problems Hx of Preganancy in last 3 No 06/08/25 19:50 Months Nurse Filling Out Transfusion DREDICK 06/08/25 19:50 & Questions: Date: 06/08/25 06/08/25 19:50 Time: 19:50 06/08/25 19:50 Patient unable to answer at this time (ie. confused, unrespo /Reproduction History /Reproductive History - chief optometry service: /Reproductive Hx- chief optometry service Hx Now Yes 06/09/25 09:01 Gestational Age (in weeks): EDC: Hx 2 06/08/25 12:40 Hx Para Hx Section SAB No 06/09/25 09:01 Does the father of the baby or his family experience fever w Father of the baby Malignant Hypertension history comment Active Medications Active Medications: Current Medications Generic Name Dose Route Start Last Admin Trade Name Freq PRN Reason Stop Dose Admin Acetaminophen 650 mg 06/08/25 18:18 Acetaminophen 325 Mg Tablet PO Q6H PRN PRN Pain 1-10 Or Fever>100.7 Enoxaparin Sodium 40 mg 06/09/25 10:00 Enoxaparin 40 Mg/0.4 Ml Syringe SC DAILY LIBERTAD Hydromorphone HCl 0.5 mg 06/08/25 18:18 06/09/25 06:19 Hydromorphone 0.5 Mg/0.5 Ml Syringe IV 0.5 mg Q4H PRN PRN Administration Pain Score 6-10 Piperacillin Sod/Tazobactam 50 mls @ 12.5 mls/hr 06/08/25 22:00 06/09/25 09:19 Sod 3.375 gm/ Sodium Chloride IV 0 mls/hr Q8 LIBERTAD Infusion Sodium Chloride 250 mls @ 15 mls/hr 06/08/25 18:48 06/08/25 20:00 IV 0 mls/hr .[id number] PRN Infusion Saline Flush Sodium Chloride 250 mls @ 15 mls/hr 06/08/25 18:48 IV .[id number] PRN Additional IVPB Infusion Sodium Chloride 1,000 mls @ 75 mls/hr 06/08/25 19:00 06/09/25 10:52 IV Not Given .[id number] LIBERTAD Melatonin 3 mg 06/08/25 18:18 Melatonin 3 Mg Tablet PO QHS PRN PRN INSOMNIA Ondansetron HCl 4 mg 06/08/25 18:18 Ondansetron 4 Mg/2 Ml Vial IV Q8H PRN PRN NAUSEA/VOMITING Oxycodone HCl 5 mg 06/08/25 18:18 Oxycodone 5 Mg Tablet PO Q4H PRN PRN Pain Score 4-10 Sodium Chloride 10 - 40 ml 06/08/25 18:48 06/09/25 00:23 0.9% Saline Lock 10 Ml Syringe IV 10 ml UD PRN Administration SALINE FLUSH PFSH Medical History GERD (gastroesophageal reflux disease) H/O severe pre-eclampsia Home Medications ?Medication ?Instructions ?Recorded ?Last Taken ?Type ondansetron 4 mg disintegrating 4 mg PO Q8H PRN PRN Na usea #10 tabs 06/07/25 Unknown Rx tablet oxycodone-acetaminophen 5 mg-325 1 tab PO Q6H PRN PRN pain 5 days 06/07/25 Unknown Rx mg tablet #20 TABLETS Allergy/AdvReac Type Severity Reaction Status Date / Time No Known Allergies Allergy Verified 06/08/25 12:31 Family History Grandfather Diabetes Surgical History H/O oral surgery S/P Social History household members: spouse and children number of children: 1 current occupational status: employed current occupation: [employer] history of recent travel: No sexually active: Yes Smoking Status: Never smoker alcohol intake: never substance use type: does not use what type of physical activity do you participate in: walking and weight training frequency: 1-2 times per week seatbelt use: always do you feel safe at home: Yes additional social history: - Luke Review of Systems (Anesthesia) ROS Narrative System reviewed and no additional complaints, except as documented.
--- NOTE | 2025-06-09 11:59 | RAD_ITS ---
PROCEDURE: ERCP BILIARY/PANCREAS; O.R. FLUORO FOR C-ARM 06/09/2025 REASON FOR EXAM: ERCP TECHNIQUE: Procedure Code: RADERCP; RADORFL_C_ARM Modality: DX Procedure: ERCP BILIARY/PANCREAS; O.R. FLUORO FOR C-ARM RAD/ERCP Biliary/Pancreas IMPRESSION: Intraoperative fluoroscopy was performed for ERCP. 15 fluoroscopic images were also obtained. Reading Location: [place] [id number]
--- NOTE | 2025-06-09 11:59 | RAD_ITS ---
PROCEDURE: ERCP BILIARY/PANCREAS; O.R. FLUORO FOR C-ARM 06/09/2025 REASON FOR EXAM: ERCP TECHNIQUE: Procedure Code: RADERCP; RADORFL_C_ARM Modality: DX Procedure: ERCP BILIARY/PANCREAS; O.R. FLUORO FOR C-ARM RAD/O.R. Fluoro for C-Arm IMPRESSION: Intraoperative fluoroscopy was performed for ERCP. 15 fluoroscopic images were also obtained. Reading Location: [place] [id number]
--- NOTE | 2025-06-09 13:21 | OP.PROVAT_ITS ---
06/09/2025 Kg Matos Re : ERCP procedure for Yashira Haider Dear Pelon This procedure was performed on Monday, June 09, 2025. My impressions and recommendations are as follows: Impressions : - A single localized biliary stricture was found in the right main hepatic duct and right intrahepatic branches. The stricture was indeterminate. - The entire main bile duct, left main hepatic duct, right main hepatic duct and left intrahepatic branches were dilated, with a stone causing an obstruction. - Choledocholithiasis was found. Complete removal was accomplished by biliary sphincterotomy and balloon extraction. - A biliary sphincterotomy was performed. - The biliary tree was swept. - Biopsy was performed in the right main hepatic duct. Recommendations : Check CA 19-9 and get an MRCP My findings are described in the full procedure note, which is enclosed. If I can be of further assistance, please feel free to contact me at . Sincerely, Lopez Clarke, 06/09/2025 1:20:33 PM This report has been signed electronically.
--- NOTE | 2025-06-09 13:21 | OP.ERCP_ITS ---
Patient Name: Yashira Haider Procedure Date: 06/09/2025 11:27 AM Date of : 1990 Age: 34 Procedure: ERCP Indications: Bile duct stone(s) Providers: Lopez Clarke DO Medicines: Monitored Anesthesia Care Patient Profile: This is a 34 year old female. Refer to note in patient chart for documentation of history and physical. Patient has symptoms of acute right upper quadrant abdominal pain. This patient has no history of previous ERCP. This patient has no history of surgical alteration of the upper digestive tract anatomy. Complications: No immediate complications. Procedure: Pre-Anesthesia Assessment: - Prior to the procedure, a History and Physical was performed, and patient medications and allergies were reviewed. The patient is competent. The risks and benefits of the procedure and the sedation options and risks were discussed with the patient. All questions were answered and informed consent was obtained. Patient identification and proposed procedure were verified by the physician in the pre-procedure area. Mental Status Examination: alert and oriented. Airway Examination: normal oropharyngeal airway and neck mobility. Respiratory Examination: clear to auscultation. CV Examination: normal. Prophylactic Antibiotics: The patient does not require prophylactic antibiotics. Prior Anticoagulants: The patient has taken no anticoagulant or antiplatelet agents. ASA Grade Assessment: II - A patient with mild systemic disease. After reviewing the risks and benefits, the patient was deemed in satisfactory condition to undergo the procedure. The anesthesia plan was to use general anesthesia. Immediately prior to administration of medications, the patient was re-assessed for adequacy to receive sedatives. The heart rate, respiratory rate, oxygen saturations, blood pressure, adequacy of pulmonary ventilation, and response to care were monitored throughout the procedure. The physical status of the patient was re-assessed after the procedure. After obtaining informed consent, the scope was passed under direct vision. Throughout the procedure, the patient's blood pressure, pulse, and oxygen saturations were monitored continuously. The Duodenoscope was introduced through the mouth, and advanced to the duodenum and used to inject contrast into the bile duct. The ERCP was accomplished without difficulty. The patient tolerated the procedure well. Scope In: 12:01:07 PM Scope Out: 1:07:28 PM Total Procedure Duration Time 1 hour 6 minutes 21 seconds Findings: The dietist film was normal. The esophagus was successfully intubated under direct vision. The scope was advanced to a normal major papilla in the descending duodenum without detailed examination of the pharynx, larynx and associated structures, and upper GI tract. The upper GI tract was grossly normal. The bile duct was deeply cannulated with the short-nosed traction sphincterotome. Contrast was injected. I personally interpreted the bile duct images. There was brisk flow of contrast through the ducts. Image quality was adequate. Contrast extended to the entire biliary tree. Opacification of the entire biliary tree except for the gallbladder and main bile duct was successful. The maximum diameter of the ducts was 10 mm. The lower third of the main bile duct contained multiple stones, the largest of which was 6 mm in diameter. The main bile duct, left main hepatic duct, left intrahepatic branches and right main hepatic duct were diffusely dilated, with a stone causing an obstruction. The largest diameter was 10 mm. A long 0.025 inch Jagwire was passed into the biliary tree. A 5 mm biliary sphincterotomy was made with a traction (standard) sphincterotome using ERBE electrocautery. There was no post-sphincterotomy bleeding. The biliary tree was swept with a 12 mm balloon starting at the bifurcation. Sludge was swept from the duct. All stones were removed. The bile duct was explored endoscopically using the SpPhosphagenicslass direct visualization system. The SpyScope was advanced to the right intrahepatic duct(s). Visibility with the scope was good. The right main hepatic duct and right intrahepatic branches contained a single localized stenosis 5 mm in length. The right main hepatic duct was biopsied with a SpyBite miniature biopsy forceps for histology. One 10 Fr by 9 cm temporary stent was placed 5 cm into the common bile duct. Bile flowed through the stent. The stent was in good position. Impression: - A single localized biliary stricture was found in the right main hepatic duct and right intrahepatic branches. The stricture was indeterminate. - The entire main bile duct, left main hepatic duct, right main hepatic duct and left intrahepatic branches were dilated, with a stone causing an obstruction. - Choledocholithiasis was found. Complete removal was accomplished by biliary sphincterotomy and balloon extraction. - A biliary sphincterotomy was performed. - The biliary tree was swept. - Biopsy was performed in the right main hepatic duct. Recommendation: Check CA 19-9 and get an MRCP Procedure Code(s): --- Professional --- 22657, Endoscopic retrograde cholangiopancreatography (ERCP); with placement of endoscopic stent into biliary or pancreatic duct, including pre- and post-dilation and guide wire passage, when performed, including sphincterotomy, when performed, each stent 03028, 51, Endoscopic retrograde cholangiopancreatography (ERCP); with removal of calculi/debris from biliary/pancreatic duct(s) 71836, 59, Endoscopic retrograde cholangiopancreatography (ERCP); with biopsy, single or multiple 95981, Endoscopic cannulation of papilla with direct visualization of pancreatic/common bile duct(s) (List separately in addition to code(s) for primary procedure) 49307, 26, Endoscopic catheterization of the biliary ductal system, radiological supervision and interpretation CPT copyright 2021 [employer]. All rights reserved. The codes documented in this report are preliminary and upon candle wrapper review may be revised to meet current compliance requirements. Lopez Clarke DO 06/09/2025 1:20:33 PM This report has been signed electronically. Number of Addenda: 0 Note Initiated On: 06/09/2025 11:27 AM
[2025-06-09] MEDS: Lactated Ringers 1,000 ML 999 ML IV ×2 (13:41→14:37)
--- NOTE | 2025-06-09 13:47 | PCM.POST.ANE ---
Anesthesia: Postop Eval I Current Vital Signs Temperature: 98.9 F Pulse Rate: 89 Blood Pressure: 124/71 Respiratory Rate: 16 Pulse Ox: 98 Oxygen Delivery Method: Room Air Assessment Airway patent: Yes Spontaneous unlabored respirations: Yes Mental status: Awake and Calm nausea: No Vomiting: No Anesthesia Complication: No Fluid Hydration Crystalloid volume administer (ml): 1,900 Total IV fluid infused: 1,900 Progress Note Anesthesia document: Postop Eval 1 completed: Yes
--- NOTE | 2025-06-09 13:56 | PCM.POSTANE2 ---
Anesthesia Postop Eval I Sum Postop Eval Completion status Anesthesia document: Postop Eval 1 completed: Yes Anesthesia Postop Eval I Summary Anesthesia Postop Eval I Summary: Anesthesia Postop Eval I: Assessment Summary Airway patent Yes 06/09/25 13:48 [email or web address] Spontaneous unlabored Yes 06/09/25 13:48 [email or web address] respirations Mental status Awake,Calm 06/09/25 13:48 [email or web address] nausea No 06/09/25 13:48 [email or web address] Vomiting No 06/09/25 13:48 [email or web address] Anesthesia Postop Eval I: Fluid Summary Crystalloid volume administer 1,900 06/09/25 13:48 [email or web address] (ml) Colloids volume administered ( ml) Blood Product volume administered (ml) Total IV fluid infused 1,900 06/09/25 13:48 [email or web address] Anesthesia Postop Eval I: Summary Notes Anesthesia Complication No 06/09/25 13:48 [email or web address] Anesthesia Complication Comment: Post-operative progress note Anesthesia: Postop Eval II Evaluation Mental status: Awake Pain Level: 1 nausea: No Vomiting: No
[2025-06-09] MEDS: 0.9% Normal Saline (1000mL) 1,000 ML 75 ML IV (16:00)
--- NOTE | 2025-06-09 17:01 | MRI_ITS ---
PROCEDURE: MRCP ABDOMEN WITHOUT CONTRAST 06/09/2025 REASON FOR EXAM: BILIARY STRICTURE TECHNIQUE: Procedure Code: MRIMRCP Modality: MR Procedure: MRCP ABDOMEN WITHOUT CONTRAST Multiplanar and multisequence images were obtained. CONTRAST: VOLUME: mL FINDINGS: The gallbladder is markedly distended (hydropic) and contains multiple small stones. Gallbladder wall thickening and pericholecystic fluid is noted. These findings are concerning for cholecystitis. The common bile duct, common hepatic duct, and intrahepatic biliary ducts are normal in caliber. The common bile duct measures up to 5 mm in diameter. A small amount of free fluid is noted around the right lobe of the liver and in the miryam hepatic region. Large amount of stool within the right side of the colon. Very small right pleural effusion. MRI/MRCP Abdomen without Contrast IMPRESSION: Hydropic gallbladder containing multiple small stones. Gallbladder wall thicke aayush and pericholecystic fluid. These findings are concerning for cholecystitis. Small amount of ascites around the right lobe of the liver and in the miryam hep atic region. Very small right pleural effusion. Reading Location: [id number]
--- NOTE | 2025-06-09 17:53 | PN.HOSP_ITS ---
Reason for Visit Chief Complaint: Right upper quadrant pain Subjective Subjective Patient evaluated at bedside post ERCP, still has little bit of discomfort but feeling better than she was on presentation Objective Data Objective Data Vital Signs: Vital Signs Temp Pulse Resp BP Pulse Ox O2 Del Method 98.8 F 83 16 130/82 H 98 Room Air 06/09/25 16:25 06/09/25 16:25 06/09/25 16:25 06/09/25 16:25 06/09/25 16:25 06/09/25 16:25 Oxygen Delivery Method Room Air Weight: 77.9 kg Body Mass Index (BMI) 29.3 Intake & Output: Intake and Output for Last 24 Hours 06/07/25 06/08/25 06/09/25 23:59 23:59 23:59 Intake Total 267.5 / 267.5 4019.69 / 4019.69 Balance 267.5 / 267.5 4019.69 / 4019.69 Lab / Micro Data 06/09/25 08:30 06/09/25 08:30 Labs: Laboratory Results - last 24 hr 06/09/25 08:30: WBC 17.0 H, RBC 4.43, Hgb 13.2, Hct 38.2, MCV 86.2, MCH 29.8, MCHC 34.6, RDW Std Deviation 38.5, RDW Coeff of Akin 12.3, Plt Count 235, MPV 8.8, Immature Gran % (Auto) 0.400, Neut % (Auto) 85.5 H, Lymph % (Auto) 6.2 L, Price % (Auto) 7.2, Eos % (Auto) 0.3, Baso % (Auto) 0.4, Absolute Neuts (auto) 14.5 H, Absolute Lymphs (auto) 1.05, Nucleated RBC % 0, Sodium 135, Potassium 3.8, Chloride 103, Carbon Dioxide 19.6 L, Anion Gap 12, BUN 7, Creatinine 0.72, Estim Creat Clear Calc 111.20, Est GFR (MDRD) Non-Af 112, BUN/Creatinine Ratio 9.5 L, Glucose 94, Calcium 8.5, Total Bilirubin 1.12, AST 16, ALT 25, Alkaline Phosphatase 51, Total Protein 6.6, Albumin 3.7, Globulin 3.0, Albumin/Globulin Ratio 1.2 Radiography Diagnostic Testing: Radiology Impression C-Arm Fluoroscopy 06/09/25 11:59 IMPRESSION: Intraoperative fluoroscopy was performed for ERCP. 15 fluoroscopic images were also obtained. Reading Location: [place] [id number] Endo Retro Cholangiopancreatogram 06/09/25 11:59 IMPRESSION: Intraoperative fluoroscopy was performed for ERCP. 15 fluoroscopic images were also obtained. Reading Location: [place] [id number] Physical Exam Narrative General: Alert, oriented, no apparent distress HEENT: Atraumatic, normocephalic Eyes: Anicteric, normal conjunctiva, extraocular movements grossly intact Neck: Supple Respiratory: Clear to auscultation bilaterally, normal respiratory effort Cardiovascular: Regular rate and rhythm GI: No rebound, guarding, rigidity, nondistended Extremities: No edema Musculoskeletal: Moving all extremities Neuro: No overt focal neurological deficits Skin: No rashes appreciated Psych: Cooperative Assessment & Plan Assessment/Plan (1) Choledocholithiasis: (2) Acute cholecystitis: (3) First trimester : PLAN: Plan Patient is a 34-year-old female who presented to [facility] ED on 06/08/2025 with right upper quadrant pain. 1. Choledocholithiasis with acute cholecystitis ? Admit under inpatient status to [facility]. GI consulted. CT abdomen pelvis on admit showed choledocholithiasis with 2 non-obstructing stones in the distal CBD as well as cholelithiasis with CT signs of acute cholecystitis. Leukocytosis with WBC count 17, LFTs normal. Will plan for ERCP tomorrow, n.p.o. at midnight. Okay for clear liquid diet for now. Continue IV Zosyn. Pain control with Tylenol, oxycodone and IV Dilaudid as needed. -06/09: Patient underwent ERCP today with GI, biliary stricture located, the duct was dilated with stone causing obstruction and choledocholithiasis found, complete removal was accomplished with biliary sphincterotomy and balloon extractions. Recommendation was to check CA 19-9 and get an MRCP, these have been ordered 2. First trimester ? Beta-hCG 475 on 06/07 and appropriately doubled to 960 on 06/08. Obstetrics ultrasound on 06/07 with no intrauterine visualized but it is suspected to be too early to visualize the . Will need beta-hCG monitoring and follow-up exams in the outpatient setting. Has an 8-year-old child and did have a miscarriage last year. -06/09: Discussed with OB on-call, they report patient can proceed with ERCP, ideally would have cholecystectomy in second trimester if possible however could be in the first trimester if absolutely necessary. Given current timing of and values that marilee appropriately do not feel the need to see in consult at this time. Patient will need follow-up in outpatient basis DVT prophylaxis: Lovenox CODE STATUS: Full code, verified Expected disposition: Home, TBD Charges/Coding Visit Charges Inpatient E&M: 02573 Subs Hosp L1
[2025-06-10] VITALS (7 sets, daily range): BP systolic 113–134; BP diastolic 65–85; PULSE 73–85; RESP 16–18; TEMP 36.6–37.3; O2SAT 95–100
[2025-06-10] MEDS: Piperacil/Tazobactam 3.375 GM in 0.9% Normal Saline (50mL MB+) 50 ML IV ×3 (06:13→21:47)
[2025-06-10] MEDS: 0.9% Normal Saline (250mL Bag) 250 ML 15 ML IV (06:17)
[2025-06-10 06:19] LABS: Hematocrit 34.6 % (37-47); Hemoglobin 12.1 g/dL (12.0-15.0); Immature Granulocytes Count 0.050 X10^3/uL (0.0-0.0); Mean Corp Hgb Conc 35.0 g/dL (32-36); Mean Corpuscular Volume 86.9 fL (81-99); Mean Platelet Vol. 8.8 fl (6.2-12.0); NRBC Flagged by Analyzer 0 % (0-5); Platelet Count 222 K/mm3 (150-450); RBC Distribution Width CV 12.2 % (11.6-14.6); RBC Distribution Width SD 39.1 fl (35.1-43.9); Red Blood Count 3.98 M/mm3 (4.2-5.4); White Blood Count 13.5 K/mm3 (4.4-11.0)
[2025-06-10 06:48] LABS: AST(SGOT) 18 U/L (<=31); Alanine Aminotransfer ALT/SGPT 24 U/L (<=34); Albumin, Serum 3.3 g/dL (3.5-5.0); Alkaline Phosphatase 62 U/L (35-104); Anion Gap 11 (5-15); BUN 5 mg/dL (4-19); BUN/Creat Ratio 6.8 RATIO (10-20); Calcium,Total 8.3 mg/dL (7.6-11.0); Carbon Dioxide 20.2 mmol/L (21.0-32.0); Chloride 103 mmol/L (98-108); Estimated Creatinine Clearance 109.68 ml/min (50-250); Globulin 2.9 g/dL (2.2-4.2); Glucose 102 mg/dL (70-99); Potassium 3.6 mmol/L (3.3-5.1)
--- NOTE | 2025-06-10 16:15 | PN.HOSP_ITS ---
Reason for Visit Chief Complaint: Right upper quadrant pain Subjective Subjective Feels a little better today but still having pain more so after eating especially she does not take the pain medication, no problems with bowel movements, not particularly nauseous Objective Data Objective Data Vital Signs: Vital Signs Temp Pulse Resp BP Pulse Ox O2 Del Method 99.1 F 74 16 125/76 H 99 Room Air 06/10/25 12:29 06/10/25 12:29 06/10/25 12:29 06/10/25 12:29 06/10/25 12:29 06/10/25 12:29 Oxygen Delivery Method Room Air Weight: 77.9 kg Body Mass Index (BMI) 29.3 Intake & Output: Intake and Output for Last 24 Hours 06/08/25 06/09/25 06/10/25 23:59 23:59 23:59 Intake Total 267.5 / 267.5 6069.69 / 6369.69 880 / 880 Balance 267.5 / 267.5 6069.69 / 6369.69 880 / 880 Lab / Micro Data 06/10/25 06:03 06/10/25 06:03 Labs: Laboratory Results - last 24 hr 06/09/25 19:35: TSH 1.100 06/10/25 06:03: WBC 13.5 H, RBC 3.98 L, Hgb 12.1, Hct 34.6 L, MCV 86.9, MCH 30.4, MCHC 35.0, RDW Std Deviation 39.1, RDW Coeff of Akin 12.2, Plt Count 222, MPV 8.8, Immature Gran % (Auto) 0.400, Neut % (Auto) 82.7 H, Lymph % (Auto) 8.8 L, [place] % (Auto) 6.8, Eos % (Auto) 1.2, Baso % (Auto) 0.1, Absolute Neuts (auto) 11.2 H, Absolute Lymphs (auto) 1.18, Nucleated RBC % 0, Sodium 134, Potassium 3.6, Chloride 103, Carbon Dioxide 20.2 L, Anion Gap 11, BUN 5, Creatinine 0.73, Estim Creat Clear Calc 109.68, Est GFR (MDRD) Non-Af 112, BUN/Creatinine Ratio 6.8 L, Glucose 102 H, Calcium 8.3, Total Bilirubin 1.04, AST 18, ALT 24, Alkaline Phosphatase 62, Total Protein 6.2, Albumin 3.3 L, Globulin 2.9, Albumin/Globulin Ratio 1.1 Radiography Diagnostic Testing: Radiology Impression MRCP 06/09/25 17:01 IMPRESSION: Hydropic gallbladder containing multiple small stones. Gallbladder wall thickening and pericholecystic fluid. These findings are concerning for cholecystitis. Small amount of ascites around the right lobe of the liver and in the miryam hepatic region. Very small right pleural effusion. Reading Location: [id number] Physical Exam Narrative General: Alert, oriented, no apparent distress HEENT: Atraumatic, normocephalic Eyes: Anicteric, normal conjunctiva, extraocular movements grossly intact Neck: Supple Respiratory: Normal respiratory effort Cardiovascular: Regular rate GI: No rebound, guarding, rigidity, nondistended, little bit tender more in the right upper quadrant than elsewhere Extremities: No edema Musculoskeletal: Moving all extremities Neuro: No overt focal neurological deficits Skin: No rashes appreciated Psych: Cooperative Assessment & Plan Assessment/Plan (1) Choledocholithiasis: (2) Acute cholecystitis: (3) First trimester : PLAN: Plan Patient is a 34-year-old female who presented to [facility] ED on 06/08/2025 with right upper quadrant pain. 1. Choledocholithiasis with acute cholecystitis ? Admit under inpatient status to [facility]. GI consulted. CT abdomen pelvis on admit showed choledocholithiasis with 2 non-obstructing stones in the distal CBD as well as cholelithiasis with CT signs of acute cholecystitis. Leukocytosis with WBC count 17, LFTs normal. Will plan for ERCP tomorrow, n.p.o. at midnight. Okay for clear liquid diet for now. Continue IV Zosyn. Pain control with Tylenol, oxycodone and IV Dilaudid as needed. -06/09: Patient underwent ERCP today with GI, biliary stricture located, the duct was dilated with stone causing obstruction and choledocholithiasis found, complete removal was accomplished with biliary sphincterotomy and balloon extractions. Recommendation was to check CA 19-9 and get an MRCP, these have been ordered -06/10: MRCP with hydropic gallbladder containing multiple small stones with thickening and pericholecystic fluid concerning for cholecystitis. Patient remains on antibiotics, slowly improving. If patient has improvement in symptoms and tolerating diet may be able to go home on 14 days of Augmentin and follow-up with surgery and GI in an attempt to wait till the second trimester for a cholecystectomy but will evaluate tomorrow and see course, possible she would need surgery before then but again given would prefer to wait until the second trimester if possible. Discussed with general surgery and GI 2. First trimester ? Beta-hCG 475 on 06/07 and appropriately doubled to 960 on 06/08. Obstetrics ultrasound on 06/07 with no intrauterine visualized but it is suspected to be too early to visualize the . Will need beta-hCG monitoring and follow-up exams in the outpatient setting. Has an 8-year-old child and did have a miscarriage last year. -06/09: Discussed with OB on-call, they report patient can proceed with ERCP, ideally would have cholecystectomy in second trimester if possible however could be in the first trimester if absolutely necessary. Given current timing of and values that marilee appropriately do not feel the need to see in consult at this time. Patient will need follow-up in outpatient basis -06/10: As above DVT prophylaxis: Low risk, ambulatory Charges/Coding Visit Charges Inpatient E&M: 97560 Subs Hosp L1
[2025-06-10] MEDS: 0.9% Normal Saline (1000mL) 1,000 ML 250 ML IV ×2 (17:50→21:47)
[2025-06-11] MEDS: 0.9% Normal Saline (1000mL) 1,000 ML 250 ML IV (01:31)
[2025-06-11 04:53] LABS: Hematocrit 31.4 % (37-47); Hemoglobin 10.6 g/dL (12.0-15.0); Immature Granulocytes Count 0.050 X10^3/uL (0.0-0.0); Mean Corp Hgb Conc 33.8 g/dL (32-36); Mean Corpuscular Volume 87.0 fL (81-99); Mean Platelet Vol. 8.7 fl (6.2-12.0); NRBC Flagged by Analyzer 0 % (0-5); Platelet Count 216 K/mm3 (150-450); RBC Distribution Width CV 12.1 % (11.6-14.6); RBC Distribution Width SD 38.9 fl (35.1-43.9); Red Blood Count 3.61 M/mm3 (4.2-5.4); White Blood Count 10.2 K/mm3 (4.4-11.0)
[2025-06-11 05:12] LABS: AST(SGOT) 16 U/L (<=31); Alanine Aminotransfer ALT/SGPT 22 U/L (<=34); Albumin, Serum 3.1 g/dL (3.5-5.0); Alkaline Phosphatase 83 U/L (35-104); Anion Gap 9 (5-15); BUN 4 mg/dL (4-19); BUN/Creat Ratio 6.2 RATIO (10-20); Calcium,Total 8.0 mg/dL (7.6-11.0); Carbon Dioxide 22.7 mmol/L (21.0-32.0); Chloride 105 mmol/L (98-108); Estimated Creatinine Clearance 131.25 ml/min (50-250); Globulin 2.8 g/dL (2.2-4.2); Glucose 87 mg/dL (70-99); Potassium 3.5 mmol/L (3.3-5.1)
[2025-06-11] MEDS: HYDROmorphone 0.5 MG/0.5 ML SYRINGE IV (06:36)
[2025-06-11] MEDS: Piperacil/Tazobactam 3.375 GM in 0.9% Normal Saline (50mL MB+) 50 ML IV (06:36)
[2025-06-11 07:48] VITALS: BP 126/77; PULSE 79; RESP 16; TEMP 36.7; O2SAT 97
[2025-06-11] MEDS: Senna/Docusate Sodium 1 Tablet 2 TABLET PO (09:51)
--- NOTE | 2025-06-11 12:15 | DCINST_ITS ---
Discharge Instructions DC O2, CPAP, BIPAP needs Home O2 Discharge instructions: No Dressing / Incision Discharge Activity: - (Increase activity as tolerated) Dressing / Incision Call your doctor if you observe: Fever of 101 or Higher Follow Up Care Test Results: Test results from this visit will be discussed in further detail at your follow- up appointment, if applicable. Discharge Plan Admission Admit Date/Time: 06/08/25 17:22 Primary Reason for Your Visit: Abdominal pain Attending Provider: Ramona Herrera Primary Care Provider: Evelia Bird Consulting Providers: Mart Flores; Lopez Clarke; Vaishnavi Sanchez; Razia Leo; Leyla Pacheco; Huang Begum; Aditya Lewis Instructions Patient Instructions: ED Abd Pain Preg Gallstones Additional Instructions / Restrictions: DISCHARGE INSTRUCTIONS PLEASE READ *Please take this with you to your next doctors appointment* -You will be discharged on 14 days of an antibiotic, Augmentin, which she will take twice a day -Please call the surgery office in the morning to schedule a follow-up to see can be monitored for optimal timing of gallbladder removal -You will need to follow-up with Dr. Clarke with GI in his office upon discharge. Please call his office to schedule an appointment (ph. [phone]) -Eat a diet high in fiber and low in fat. Eat whole grains, like brown rice, oats, and whole wheat bread. Don't eat greasy or fried foods. -Eat less simple carbohydrates (like white flour, white bread and tortillas, and white rice) and less sugar. -Read food labels to be sure the foods you are choosing are low in fat. -Limit high-fat meats, dairy products, animal fats, and vegetable oils. -Always check with your doctor before taking any knhe-gfz-bvvubil medicines, herbal medicines, or dietary supplements. -Given your positive test, please follow-up with an OB of your choice on discharge -Please call your primary care provider's office upon discharge to schedule a hospital follow up within 1 week. -For any concerning signs or symptoms please call 911 or proceed to the nearest emergency department Discharge Orders/Prescriptions Prescriptions: New sennosides-docusate sodium [Stimulant Laxative Plus] 8.6-50 mg Tablet 2 tab PO BID 5 Days Qty: 20 0RF hydrocodone-acetaminophen 5-325 mg tablet 1 tab PO Q8H PRN (Reason: pain) 2 Days Qty: 7 0RF amoxicillin-pot clavulanate 875-125 mg tablet 1 tab PO BID 14 Days Qty: 28 0RF Discontinued oxycodone-acetaminophen 5-325 mg tablet 1 tab PO Q6H PRN PRN (Reason: pain) 5 Days Qty: 20 0RF No Action ondansetron 4 mg tablet,disintegrating 4 mg PO Q8H PRN PRN (Reason: Nausea) Qty: 10 0RF Referrals / Follow Up: Lopez Clarke DO [Med Staff - Active Staff, Gastroenterology] Referral Note: -You will need to follow-up with Dr. Clarke with GI in his office upon discharge. Please call his office to schedule an appointment (ph. [phone]) Jim Wiggins MD [Med Staff - Active Staff, General Surgery] Referral Note: -Please call the surgery office in the morning to schedule a follow-up to see can be monitored for optimal timing of gallbladder removal Evelia Bird, PRODUCT DEVELOPMENT [employer] [Primary Care Provider, Family Practice] - Within 1 Week Disposition Disposition (needs filled in before D/C Order can be placed): Home, Self Care
--- NOTE | 2025-06-11 12:27 | DS.PCM_ITS ---
Providers Date of Admission: 06/08/25 Date of Discharge: 06/11/25 Primary Care Physician: HENRIQUE Matos Consultations 06/08/25 18:18 Consult: Gastroenterology Routine Consulting Provider: [facility] Reason for Consult: choledocholithiasis w/ acute cholecystitis EMERGENT Consult: No Notified: Yes Date Notified: 06/08/25 Time Notified: 19:00 Method of Notification: Text 06/09/25 09:23 Consult: PANTS BUSHELER Routine Consulting Provider: Aditya Lewis Reason for Consult: 1st trimester , admt for choledocolithiasis, ERCP and ?cholecystec EMERGENT Consult: No Notified: Yes Date Notified: 06/09/25 Time Notified: 09:56 Method of Notification: Verbal Reason For Visit: CHOLEDOCHOLITHIASIS Diagnosis Discharge Diagnosis (1) Choledocholithiasis: Status: Acute Code(s): K80.50 - Calculus of bile duct without cholangitis or cholecystitis without obstruction (2) First trimester : Status: Acute Code(s): Z34.91 - Encounter for supervision of normal , unspecified, first trimester Plan #Choledocholithiasis # First trimester Medications at Discharge Home Medications ondansetron 4 mg disintegrating tablet 4 mg PO Q8H PRN PRN Nausea #10 tabs 06/07/25 amoxicillin 875 mg-potassium clavulanate 125 mg tablet 1 tab PO BID 14 days #28 tabs 06/11/25 hydrocodone-acetaminophen 5-325mg 5mg-325mg 1 tab PO Q8H PRN pain 2 days #7 tabs 06/11/25 sennosides 8.6 mg-docusate sodium 50 mg tablet (Stimulant Laxative Plus) 2 tab PO BID 5 days #20 tabs 06/11/25 Hospital Course Operations ERCP Procedures - (MRCP) Summary of Care Provided Minutes Spent on Discharge: 32 Hospital Course: Patient is a 34-year-old female who presented to [facility] ED on 06/08/2025 with right upper quadrant pain for 48 hours. In the ED Tmax 99.4, heart rate 75, respiratory 18 with a blood pressure 138/78 and pulse ox 99% on room air. White count 17.9, creatinine stable and LFTs within normal limits. hCG quant found to be 960. Gallbladder ultrasound showed distended gallbladder with sludge and gallstones with the gallbladder distended and no gallbladder wall thickening or pericholecystic fluid. CT of the abdomen showed stones in common bile duct and general surgery contacted as was GI. Hospitalist contacted for admission and patient started on IV antibiotics. Discussed with PANTS BUSHELER on- call given patient had positive and it was advised that ERCP was okay to proceed with and ideally patient would forego cholecystectomy until second trimester if possible. Patient underwent ERCP on 06/09/2025 and it showed a single localized biliary stricture in the right main hepatic duct and right intrahepatic branches, stone was found to be causing obstruction and complete removal accomplished by biliary sphincterotomy and balloon extractions, biliary tree was swept and biopsy was performed in right main hepatic duct. Was recommended check MRCP. Patient evaluated post ERCP and still is a little discomfort but feeling much better, white count downtrending. MRCP was pending. Ultimately this showed hydropic gallbladder containing multiple small stones with gallbladder thickening and Nasir cholecystic fluid which could indicate cholecystitis. Discussed with surgery, given patient's continued improvement and resolution of white count and improving symptoms the hope is that cholecystectomy can be foregone until second trimester to try to maximize outcomes if possible. Discussed with GI as well, patient to be discharged on oral antibiotics and advised to call the surgery office to follow-up on Thursday. Patient verbalized understanding was comfortable with the plan. White count is now normalized, she has tolerated antibiotics, little bit of nausea but does note she is early in . Pain has been improving each day. Patient afebrile. Discharge instructions as follows: -You will be discharged on 14 days of an antibiotic, Augmentin, which she will take twice a day -Please call the surgery office in the morning to schedule a follow-up to see can be monitored for optimal timing of gallbladder removal -You will need to follow-up with Dr. Clarke with GI in his office upon discharge. Please call his office to schedule an appointment (ph. [phone]) -Eat a diet high in fiber and low in fat. Eat whole grains, like brown rice, oats, and whole wheat bread. Don't eat greasy or fried foods. -Eat less simple carbohydrates (like white flour, white bread and tortillas, and white rice) and less sugar. -Read food labels to be sure the foods you are choosing are low in fat. -Limit high-fat meats, dairy products, animal fats, and vegetable oils. -Always check with your doctor before taking any gvfb-rpg-njazobt medicines, herbal medicines, or dietary supplements. -Given your positive test, please follow-up with an OB of your choice on discharge -Please call your primary care provider's office upon discharge to schedule a hospital follow up within 1 week. -For any concerning signs or symptoms please call 911 or proceed to the nearest emergency department Physical Exam Narrative General: Alert, oriented, no apparent distress, up ambulating the halls in no acute distress HEENT: Atraumatic, normocephalic Eyes: Anicteric, normal conjunctiva, extraocular movements grossly intact Neck: Supple Respiratory: Normal respiratory effort Cardiovascular: Regular rate GI: No rebound, guarding, rigidity, nondistended, little bit of epigastric discomfort, improving daily Extremities: No edema Musculoskeletal: Moving all extremities Neuro: No overt focal neurological deficits Skin: No rashes appreciated Psych: Cooperative Weight / BMI Weight Weight: 77.9 kg Body Mass Index (BMI) 29.3 ABG / Lab / Microbiology Data 06/11/25 04:32 06/11/25 04:32 Laboratory: Laboratory Results - last 24 hr 06/09/25 19:35: CA 19-9 Antigen 35 06/11/25 04:32: WBC 10.2, RBC 3.61 L, Hgb 10.6 L, Hct 31.4 L, MCV 87.0, MCH 29.4, MCHC 33.8, RDW Std Deviation 38.9, RDW Coeff of Akin 12.1, Plt Count 216, MPV 8.7, Immature Gran % (Auto) 0.500, Neut % (Auto) 78.3 H, Lymph % (Auto) 11.1 L, [place] % (Auto) 6.6, Eos % (Auto) 3.2, Baso % (Auto) 0.3, Absolute Neuts (auto) 8.0 H, Absolute Lymphs (auto) 1.14, Nucleated RBC % 0, Sodium 136, Potassium 3.5, Chloride 105, Carbon Dioxide 22.7, Anion Gap 9, BUN 4, Creatinine 0.61 L, Estim Creat Clear Calc 131.25, Est GFR (MDRD) Non-Af 120, BUN/Creatinine Ratio 6.2 L, Glucose 87, Calcium 8.0, Total Bilirubin 0.81, AST 16, ALT 22, Alkaline Phosphatase 83, Total Protein 5.9, Albumin 3.1 L, Globulin 2.8, Albumin/Globulin Ratio 1.1 D/C Instructions Call your doctor if you observe: Fever of 101 or Higher DC O2, CPAP, BIPAP Needs Home O2 Discharge instructions: No Meaningful Use Info Meaningful Use Meaningful Use Diagnoses (Choose all that apply): None applicable Discharge Plan Admission Admit Date/Time: 06/08/25 17:22 Primary Reason for Your Visit: Abdominal pain Attending Provider: Ramona Herrera Primary Care Provider: Evelia Bird Consulting Providers: Mart Flores; Lopez Clarke; Vaishnavi Sanchez; Razia Leo; Leyla Pacheco; Huang Begum; Aditya Lewis Instructions Patient Instructions: ED Abd Pain Preg Gallstones Additional Instructions / Restrictions: DISCHARGE INSTRUCTIONS PLEASE READ *Please take this with you to your next doctors appointment* -You will be discharged on 14 days of an antibiotic, Augmentin, which she will take twice a day -Please call the surgery office in the morning to schedule a follow-up to see can be monitored for optimal timing of gallbladder removal -You will need to follow-up with Dr. Clarke with GI in his office upon discharge. Please call his office to schedule an appointment (ph. [phone]) -Eat a diet high in fiber and low in fat. Eat whole grains, like brown rice, oats, and whole wheat bread. Don't eat greasy or fried foods. -Eat less simple carbohydrates (like white flour, white bread and tortillas, and white rice) and less sugar. -Read food labels to be sure the foods you are choosing are low in fat. -Limit high-fat meats, dairy products, animal fats, and vegetable oils. -Always check with your doctor before taking any slqc-byt-fmwudil medicines, herbal medicines, or dietary supplements. -Given your positive test, please follow-up with an OB of your choice on discharge -Please call your primary care provider's office upon discharge to schedule a hospital follow up within 1 week. -For any concerning signs or symptoms please call 911 or proceed to the nearest emergency department Discharge Orders/Prescriptions Prescriptions: New sennosides-docusate sodium [Stimulant Laxative Plus] 8.6-50 mg Tablet 2 tab PO BID 5 Days Qty: 20 0RF hydrocodone-acetaminophen 5-325 mg tablet 1 tab PO Q8H PRN (Reason: pain) 2 Days Qty: 7 0RF amoxicillin-pot clavulanate 875-125 mg tablet 1 tab PO BID 14 Days Qty: 28 0RF Discontinued oxycodone-acetaminophen 5-325 mg tablet 1 tab PO Q6H PRN PRN (Reason: pain) 5 Days Qty: 20 0RF No Action ondansetron 4 mg tablet,disintegrating 4 mg PO Q8H PRN PRN (Reason: Nausea) Qty: 10 0RF Referrals / Follow Up: Lopez Clarke DO [Med Staff - Active Staff, Gastroenterology] Referral Note: -You will need to follow-up with Dr. Clarke with GI in his office upon discharge. Please call his office to schedule an appointment (ph. [phone]) Jim Wiggins MD [Med Staff - Active Staff, General Surgery] Referral Note: -Please call the surgery office in the morning to schedule a follow-up to see can be monitored for optimal timing of gallbladder removal Evelia Bird, SUPERVISOR [employer] [Primary Care Provider, Family Practice] - Within 1 Week Disposition Disposition (needs filled in before D/C Order can be placed): Home, Self Care Charges/Coding Visit Charges Inpatient E&M: 23340 Disch Hosp >30min
[2025-06-11 13:55] VITALS: BP 127/84; PULSE 79; RESP 16; TEMP 37.3; O2SAT 100
== END 2025-06-11 14:03 | disposition home or self-care (01) | DRG 832 ==
LOC: ED 17:18 → MS3 17:57
PROVIDERS: Emergency Medicine; Internal Medicine Gastroenterology; Admitting Provider Hospitalist; Emergency Provider Emergency Medicine; PCP Nurse Practitioner Family; Visit Provider Internal Medicine
PROC: 0FHB8DZ Insertion of Intraluminal Device into Hepatobiliary Duct, Via Natural or Artificial Opening Endoscopic (ICD-10-PCS; CPT 43260; principal; 2025-06-09 10:40)
DX: O26.611 Liver and biliary tract disorders in pregnancy, first trimester (principal); K80.43 Calculus of bile duct with acute cholecystitis with obstruction; O99.611 Diseases of the digestive system complicating pregnancy, first trimester; Z3A.01 Less than 8 weeks gestation of pregnancy
CPT/HCPCS: 36415; 74177; 74181; 74330; 76000; 76705; 80053; 83690; 84443; 84702; 85025; 86301; 87040; 88305; 93005; 94668; 99285; C1889; Q9967; A4216; J2405

== ENCOUNTER → 2025-06-12 | Outpatient (CLI) | payer SELFPAY ==
--- NOTE | 2025-06-12 18:06 | US_ITS ---
PROCEDURE: TRANSVAGINAL W/PREG US 06/12/2025 REASON FOR EXAM: CONFIRM IUP TECHNIQUE: Procedure Code: [id number] Modality: US Procedure: TRANSVAGINAL W/PREG US COMPARISON: Pelvic ultrasound 06/07/2025. FINDINGS There is a small very early intrauterine gestational sac at the right upper aspect of the uterine cavity, with a mean sac diameter corresponding with a 5 week 2 day gestational age. No discrete yolk sac or pole is visualized at this time, likely due to early gestational age. No abnormal fluid collection is otherwise seen within the uterine cavity. Endometrial stripe complex appears within normal limits. No discrete uterine myoma. The cervix is closed. Bilateral ovaries contain innumerable small follicles. Blood flow is demonstrated bilaterally within the ovaries on color Doppler. No adnexal mass. Right ovary contains a thick-walled hemorrhagic presumed corpus luteal cyst of , measuring up to approximately 2.2 cm. Exophytic left ovarian cysts measuring up to approximately 0.9 and 0.6 cm, respectively. Moderate amount of complex free fluid within the pelvis, with granular echogenic debris and may be hemorrhagic fluid. Nonspecific, but may be sequelae of ovarian cyst rupture. US/Transvaginal w/Preg US IMPRESSION: Small cystic structure in the right upper uterine cavity, most likely an early gestational sac which corresponds to a 5 week 2 day gestational age. No pole seen at this time, likely due to early gest ational age. Viability cannot be determined at this time. Small right ovarian hemorrhagic presumed corpus luteal cyst of . Smal l exophytic left ovarian cysts. No adnexal mass suspicious for ectopic on this exam. Persistent moderate amount of complex possibly hemorrhagic free fluid in the pe lvis, nonspecific but may be sequelae of hemorrhagic ovarian cyst rupture. Suggest follow-up ultrasound within 1-2 weeks, or sooner as clinically warrante d. Reading Location: [id number]
[2025-06-12 19:49] LABS: hCG Titer Quant., Serum 3186 mIU/mL (<9 non-preg)
== END | disposition home or self-care (01) ==
LOC: US 18:06
PROVIDERS: PCP Nurse Practitioner Family; Referring Provider Obstetrics & Gynecology; Visit Provider Obstetrics & Gynecology
DX: O26.891 Other specified pregnancy related conditions, first trimester (principal); R10.9 Unspecified abdominal pain; Z3A.01 Less than 8 weeks gestation of pregnancy
CPT/HCPCS: 36415; 76817; 84702

== ENCOUNTER 2025-06-14 10:17 | Inpatient (IN) | payer SELFPAY ==
[2025-06-14] VITALS (15 sets, daily range): BP systolic 129–148; BP diastolic 78–96; PULSE 54–98; RESP 12–18; TEMP 36.2–37.3; O2SAT 95–100; BMI 29.2; BMI 28.3
--- NOTE | 2025-06-14 10:35 | ED.VIS.GI ---
HPI HPI - GI History of Present Illness Chief Complaint: Abd Pain Detail of Chief Complaint: Abdominal pain Informant: patient Abdominal Pain/Flank Pain Current Severity: 01/26 Narrative Narrative: Patient presents with abdominal pain started around 3 AM. She states that it was a gallbladder attack. She was admitted recently for same and has had multiple visits to the ER for same. She states that grey percher Dr. Clarke last week took out to gallstones. She has history of choledocholithiasis. Also found out recently she is 5 weeks . She had an ultrasound yesterday apparently that showed a viable intrauterine and Dr. Cruz's office. Patient described nausea. She has had no vomiting. She denies diarrhea. She denies urinary symptoms. She has had no fever. [facility] Medical History (Updated 06/14/25 @ 14:[address] Kay Pretty DO) PCOS (polycystic ovarian syndrome) GERD (gastroesophageal reflux disease) H/O severe pre-eclampsia Home Medications Medication Instructions Recorded Last Taken Type ondansetron 4 mg disintegrating 4 mg PO Q8H PRN PRN Nausea #10 tabs 06/07/25 06/13/25 Rx tablet sennosides 8.6 mg-docusate sodium 2 tab PO BID 5 days #20 tabs 06/11/25 06/14/25 Rx 50 mg tablet (Stimulant Laxative Plus) amoxicillin 875 mg-potassium 1 tab PO BID 06/14/25 06/13/25 History clavulanate 125 mg tablet hydrocodone-acetaminophen 5-325mg 1 tab PO Q8H PRN PRN pain 06/14/25 Unknown History 5mg-325mg oxycodone-acetaminophen 5 mg-325 1 tab PO Q6H PRN PRN pain 06/14/25 06/14/25 History mg tablet Allergy/AdvReac Type Severity Reaction Status Date / Time No Known Allergies Allergy Verified 06/14/25 10:20 Family History Grandfather Diabetes Surgical History H/O oral surgery S/P Social History household members: spouse and children number of children: 1 current occupational status: employed current occupation: [employer] history of recent travel: No sexually active: Yes Smoking Status: Never smoker alcohol intake: never substance use type: does not use what type of physical activity do you participate in: walking and weight training frequency: 1-2 times per week seatbelt use: always do you feel safe at home: Yes additional social history: - Luke ROS ROS ED Review of Systems ROS Unobtainable: other Constitutional Constitutional ED: Reports lethargy; Denies chills, fever(s), sweats or weight loss Eyes Eyes: Denies blurry vision, change in vision or diplopia ENT ENT ED: Denies rhinorrhea or sore throat Cardiovascular Cardiovascular: Denies chest pain, orthopnea or racing heartbeat Respiratory/Chest Respiratory/Chest: Denies cough, dyspnea, dyspnea on exertion, orthopnea or sputum Gastrointestinal Gastrointestinal: Reports abdominal pain and nausea; Denies diarrhea or vomiting Genitourinary Genitourinary ED: Denies dysuria, hematuria or urinary frequency Musculoskeletal Musculoskeletal: Denies arthralgias, back pain, myalgias or neck pain Integumentary Denies abscess, Abrasions or rash Neurologic Neurologic: Denies headache(s) or weakness Psychiatric Psychiatric: Denies anxiety, depression or suicidal thoughts Endocrine Endocrinology: Denies polydipsia, polyphagia or polyuria Hematologic/Lymphatic Hematologic/Lymphatic: Denies easy bleeding, easy bruising or lymphadenopathy Allergic/Immunologic Allergic/Immunologic ED: Denies mouth swelling, tongue swelling or urticaria EXAM Physical Exam Const Vital Signs: 06/14/25 10:17 06/14/25 12:15 Temperature 97.6 F L Temperature Source Oral Pulse Rate 54 L 98 Respiratory Rate 14 Blood Pressure 133/92 H 129/79 H Blood Pressure Mean 105 95 Pulse Ox 100 99 Oxygen Delivery Method Room Air Positive well nourished and well developed General Appearance ED: well developed and NAD HEENT Reports TM's clear and moist mucous membranes normocephalic and atraumatic; Negative for trauma or tenderness Tympanic Membrane ED: Yes TM's clear Eyes PERRL and EOMs intact bilaterally General Eye ED: Negative for pale conjunctiva or scleral icterus Neck no lymphadenopathy, supple and no JVD General: Negative for tenderness Chest Wall inspection of chest normal and palpation of chest normal Chest: Negative for tenderness Resp normal respiratory effort and clear to auscultation bilaterally Effort and Inspection: Negative for respiratory distress or pain with movement Auscultation: Negative for rhonchi, wheezes or diminished lung sounds Cardio regular rate, regular rhythm, S1 normal heart sound, S2 normal heart sound and no murmurs Peripheral Pulses: pulses 2+ throughout GI normal to inspection, nondistended, normoactive bowel sounds, soft to palpation, non-distended and no masses GI Narrative: Tenderness palpation over right upper quadrant with some guarding. There is no rebound or rigidity or peritoneal signs. Back/Spine no CVA tenderness and no thoracic nor lumbar tenderness Extremity normal to inspection General Extremety ED: Negative for edema General Extremity: Negative for edema Neuro oriented x3, CN's II-XII intact bilaterally, no sensory deficits noted and gait normal Sensorium / Orientation: awake, alert, oriented to person, oriented to place and oriented to time Motor Exam: strength 5/5 throughout and strength abnormal Psych mental status grossly normal Skin no rashes or lesions noted and no wounds MDM MDM MDM Narrative Medical decision making narrative: Patient presents with right upper quadrant abdominal pain that is been ongoing. Patient has had stones removed from her common bile duct by Dr. Clarke. She has ongoing pain today. With nausea. Denies fever. IV line established. She now I think the pain issue. CBC with differential count 9.0 with 11.9 platelet count 318. Chemistries unremarkable. LFTs show slight elevated AST of 33 and an ALT of 47 with alk phos of 100. Lipase normal at 28. Discussed case with Dr. Clarke who recommended obtaining an MRCP. MRCP was ordered. I discussed case also with general surgeon on-call Dr. Russell. It was felt patient had acute cholecystitis. Dr. Capps will take patient to the OR to remove gallbladder. Lab Data Attestation: I reviewed the patient's lab results. Labs: Laboratory Results - last 24 hr 06/14/25 10:47 WBC 9.9 RBC 4.08 L Hgb 11.9 L Hct 34.9 L MCV 85.5 MCH 29.2 MCHC 34.1 RDW Std Deviation 36.0 RDW Coeff of Akin 11.9 Plt Count 318 MPV 8.7 Immature Gran % (Auto) 0.500 Neut % (Auto) 82.1 H Lymph % (Auto) 8.9 L [place] % (Auto) 5.7 Eos % (Auto) 2.3 Baso % (Auto) 0.5 Absolute Neuts (auto) 8.1 H Absolute Lymphs (auto) 0.88 Nucleated RBC % 0 Sodium 137 Potassium 3.7 Chloride 101 Carbon Dioxide 21.3 Anion Gap 15 BUN 6 Creatinine 0.57 L Estim Creat Clear Calc 140.17 Est GFR (MDRD) Non-Af 122 BUN/Creatinine Ratio 10.2 Glucose 90 Calcium 9.0 Total Bilirubin 0.50 AST 33 H ALT 47 H Alkaline Phosphatase 100 Total Protein 7.2 Albumin 3.7 Globulin 3.5 Albumin/Globulin Ratio 1.0 Lipase 28 Discharge Plan Dx/Rx/DC Orders Clinical Impression: Abdominal pain, Acute cholecystitis, First trimester Disposition Disposition: Acute Care Hospital [facility]
--- NOTE | 2025-06-14 11:03 | MRI_ITS ---
PROCEDURE: MRCP ABDOMEN WITHOUT CONTRAST 06/14/2025 REASON FOR EXAM: ABDOMINAL PAIN. Recent biliary stent placed. History of gallstones. TECHNIQUE: Procedure Code: MRIMRCP Modality: MR Procedure: MRCP ABDOMEN WITHOUT CONTRAST Multiplanar and multisequence images were obtained. COMPARISON: 06/09/2025 FINDINGS: LUNG BASES: Small right pleural effusion, which has minimally improved LIVER: Unremarkable. GALLBLADDER: Multiple gallstones with a 4.7 mm stone in the neck. The gallbladder remains dilated (hydropic) with worsening circumferential wall thickening. Mildly improved pericholecystic inflammatory changes. BILE DUCTS: No ductal dilation with biliary stent present. A 4.3 mm stone is present in the proximal common bile duct (Se: 8, Im: 17). PANCREAS: Unremarkable. No ductal dilation. SPLEEN: Unremarkable. ADRENAL GLANDS: Unremarkable. KIDNEYS: Unremarkable. No hydronephrosis or mass. STOMACH AND BOWEL: No obstruction. RETRO/PERITONEUM: Minimal ascites, which has decreased since the prior study. LYMPH NODES: No lymphadenopathy. VASCULATURE: No aortic aneurysm. ABDOMINAL WALL AND SOFT TISSUES: Unremarkable. BONES: No acute osseous abnormality seen. MRI/MRCP Abdomen without Contrast IMPRESSION: 1. Cholelithiasis with persistent signs of acute cholecystitis. Worsening gal lbladder wall thickening but improving pericholecystic inflammation. 2. Choledocholithiasis. Biliary stent present with normal caliber bile ducts. 2. Interval decrease in right pleural effusion and ascites. Reading Location: [id number]
[2025-06-14 11:06] LABS: Hematocrit 34.9 % (37-47); Hemoglobin 11.9 g/dL (12.0-15.0); Immature Granulocytes Count 0.050 X10^3/uL (0.0-0.0); Mean Corp Hgb Conc 34.1 g/dL (32-36); Mean Corpuscular Volume 85.5 fL (81-99); Mean Platelet Vol. 8.7 fl (6.2-12.0); NRBC Flagged by Analyzer 0 % (0-5); Platelet Count 318 K/mm3 (150-450); RBC Distribution Width CV 11.9 % (11.6-14.6); RBC Distribution Width SD 36.0 fl (35.1-43.9); Red Blood Count 4.08 M/mm3 (4.2-5.4); White Blood Count 9.9 K/mm3 (4.4-11.0)
[2025-06-14 11:39] LABS: AST(SGOT) 33 U/L (<=31); Alanine Aminotransfer ALT/SGPT 47 U/L (<=34); Albumin, Serum 3.7 g/dL (3.5-5.0); Alkaline Phosphatase 100 U/L (35-104); Anion Gap 15 (5-15); BUN 6 mg/dL (4-19); BUN/Creat Ratio 10.2 RATIO (10-20); Calcium,Total 9.0 mg/dL (7.6-11.0); Carbon Dioxide 21.3 mmol/L (21.0-32.0); Chloride 101 mmol/L (98-108); Estimated Creatinine Clearance 140.17 ml/min (50-250); Globulin 3.5 g/dL (2.2-4.2); Glucose 90 mg/dL (70-99); Lipase 28 U/L (13-75); Potassium 3.7 mmol/L (3.3-5.1)
--- NOTE | 2025-06-14 14:24 | EX.PCM.CONOB ---
Assessment & Plan (1) First trimester : PLAN: risks of anesthesia on an early discussed. Usually an "all or none" situation. Patient consents to surgery with Dr. Russell. plan to rto 1 week after surgery for us to do heart tones. (2) Acute cholecystitis: (3) Abdominal pain: (4) Early loss: (5) PCOS (polycystic ovarian syndrome): (6) Abdominal pain in early : (7) Acute cholecystitis: HPI Consult Data Date of Consult: 06/14/25 HPI Narrative HPI Narrative: TROY LEARY, is a 34 y/o @ 5 weeks gestation who presents to ER with acute on chronic RUQ pain. She was diagnosed by Dr. Russell with an acute cholecystitis he would like to take her to the OR now to remove the gall bladder. Yesterday in the office, Dr. Cruz performed an ultrasound that showed a very early IUP but could not definitively rule out cornual . The plan is for her to have pictures taken of the uterus at the time of the cholecystectomy. [facility] Medical History (Updated 06/14/25 @ 14:[address] Kay Pretty DO) PCOS (polycystic ovarian syndrome) GERD (gastroesophageal reflux disease) H/O severe pre-eclampsia Home Medications Medication Instructions Recorded Last Taken Type ondansetron 4 mg disintegrating 4 mg PO Q8H PRN PRN Nausea #10 tabs 06/07/25 06/13/25 Rx tablet sennosides 8.6 mg-docusate sodium 2 tab PO BID 5 days #20 tabs 06/11/25 06/14/25 Rx 50 mg tablet (Stimulant Laxative Plus) amoxicillin 875 mg-potassium 1 tab PO BID 06/14/25 06/13/25 History clavulanate 125 mg tablet hydrocodone-acetaminophen 5-325mg 1 tab PO Q8H PRN PRN pain 06/14/25 Unknown History 5mg-325mg oxycodone-acetaminophen 5 mg-325 1 tab PO Q6H PRN PRN pain 06/14/25 06/14/25 History mg tablet Allergy/AdvReac Type Severity Reaction Status Date / Time No Known Allergies Allergy Verified 06/14/25 10:20 Family History Grandfather Diabetes Surgical History H/O oral surgery S/P Social History household members: spouse and children number of children: 1 current occupational status: employed current occupation: [employer] history of recent travel: No sexually active: Yes Smoking Status: Never smoker alcohol intake: never substance use type: does not use what type of physical activity do you participate in: walking and weight training frequency: 1-2 times per week seatbelt use: always do you feel safe at home: Yes additional social history: - Luke Vital Signs Vital Signs Vital Signs: 06/14/25 10:17 06/14/25 12:15 Temperature 97.6 F L Temperature Source Oral Pulse Rate 54 L 98 Respiratory Rate 14 Blood Pressure 133/92 H 129/79 H Blood Pressure Mean 105 95 Pulse Ox 100 99 Oxygen Delivery Method Room Air Weight Weight: 171 lb Body Mass Index (BMI) 29.2 ROS Constitutional Constitutional: Denies change in weight, fatigue, fever(s), headache(s), poor appetite or weakness Cardiovascular Cardiovascular: Denies chest pain, dizziness, dyspnea, irregular heart rhythm, leg edema, palpitations, rapid heart rate or vomiting Gastrointestinal Gastrointestinal: Denies anorexia, cramping, hemorrhoids or weight changes Genitourinary Genitourinary: Denies dysuria, flank pain, genital lesions, genital pain, urinary frequency or urinary urgency Musculoskeletal Musculoskeletal: Denies back pain, difficulty walking, joint pain, limited range of motion, muscle cramps or numbness Integumentary Integumentary: Denies lesions or unusual bruising Neurologic Neurologic: Denies abnormal movements, abnormal speech, dizziness, numbness, seizure-like activity or syncope Physical Exam Const alert, oriented x3, no apparent distress and healthy appearing General Appearance: cooperative; Negative for anxious HEENT normocephalic Face and Sinus: normal facial exam Lymph Lymphatic: no lymphadenopathy noted Resp normal respiratory effort Effort and Inspection: able to speak in complete sentences Cardio regular rate GI soft to palpation and non-tender Inspection: gravid Palpation: soft; Negative for tender Extremity normal to inspection, full ROM and no clubbing, cyanosis or edema General Extremity: Negative for calf tenderness or edema Skin Lesions: no lesions Rashes: no rashes Psych mental status grossly normal Lab / Micro Data 06/14/25 10:47 06/14/25 10:47 Labs: Laboratory Results - last 24 hr 06/14/25 10:47: WBC 9.9, RBC 4.08 L, Hgb 11.9 L, Hct 34.9 L, MCV 85.5, MCH 29.2, MCHC 34.1, RDW Std Deviation 36.0, RDW Coeff of Akin 11.9, Plt Count 318, MPV 8.7, Immature Gran % (Auto) 0.500, Neut % (Auto) 82.1 H, Lymph % (Auto) 8.9 L, [place] % (Auto) 5.7, Eos % (Auto) 2.3, Baso % (Auto) 0.5, Absolute Neuts (auto) 8.1 H, Absolute Lymphs (auto) 0.88, Nucleated RBC % 0, Sodium 137, Potassium 3.7, Chloride 101, Carbon Dioxide 21.3, Anion Gap 15, BUN 6, Creatinine 0.57 L, Estim Creat Clear Calc 140.17, Est GFR (MDRD) Non-Af 122, BUN/Creatinine Ratio 10.2, Glucose 90, Calcium 9.0, Total Bilirubin 0.50, AST 33 H, ALT 47 H, Alkaline Phosphatase 100, Total Protein 7.2, Albumin 3.7, Globulin 3.5, Albumin/Globulin Ratio 1.0, Lipase 28 Charges/Coding Visit Charges Office Visits / Consults: 78339 ED Visit; Low/Mod Severity
--- NOTE | 2025-06-14 14:28 | PCM.HP.STD ---
HPI - General HPI Narrative TROY LEARY, is a 34 F who presents with abdominal pain. The patient was recently discharged after ERCP. The patient had MRCP that showed thickening of the gallbladder wall and Nasir cholecystic fluid. She has been having pain since being discharged. The pain is in the right upper quadrant radiates to the back. She denies nausea or vomiting. She says she does have occasional fevers. She has a biliary stent in place from her ERCP. [facility] Medical History (Updated 06/14/25 @ 14:[address] Kay Pretty DO) PCOS (polycystic ovarian syndrome) GERD (gastroesophageal reflux disease) H/O severe pre-eclampsia Home Medications Medication Instructions Recorded Last Taken Type ondansetron 4 mg disintegrating 4 mg PO Q8H PRN PRN Nausea #10 tabs 06/07/25 06/13/25 Rx tablet sennosides 8.6 mg-docusate sodium 2 tab PO BID 5 days #20 tabs 06/11/25 06/14/25 Rx 50 mg tablet (Stimulant Laxative Plus) amoxicillin 875 mg-potassium 1 tab PO BID 06/14/25 06/13/25 History clavulanate 125 mg tablet hydrocodone-acetaminophen 5-325mg 1 tab PO Q8H PRN PRN pain 06/14/25 Unknown History 5mg-325mg oxycodone-acetaminophen 5 mg-325 1 tab PO Q6H PRN PRN pain 06/14/25 06/14/25 History mg tablet Allergy/AdvReac Type Severity Reaction Status Date / Time No Known Allergies Allergy Verified 06/14/25 10:20 Family History Grandfather Diabetes Surgical History H/O oral surgery S/P Social History household members: spouse and children number of children: 1 current occupational status: employed current occupation: [employer] history of recent travel: No sexually active: Yes Smoking Status: Never smoker alcohol intake: never substance use type: does not use what type of physical activity do you participate in: walking and weight training frequency: 1-2 times per week seatbelt use: always do you feel safe at home: Yes additional social history: - Luke Vital Signs Vital Signs Vital Signs: 06/14/25 10:17 06/14/25 12:15 Temperature 97.6 F L Temperature Source Oral Pulse Rate 54 L 98 Respiratory Rate 14 Blood Pressure 133/92 H 129/79 H Blood Pressure Mean 105 95 Pulse Ox 100 99 Oxygen Delivery Method Room Air Weight Weight: 171 lb Body Mass Index (BMI) 29.2 Physical Exam Const oriented x3 HEENT normocephalic Eyes PERRL Resp normal respiratory effort and normal air movement Cardio regular rate and regular rhythm GI soft to palpation and non-distended Palpation: tender Positive for RUQ Extremity normal to inspection Results Lab / Micro Data 06/14/25 10:47 06/14/25 10:47 Labs: Laboratory Results - last 24 hr 06/14/25 10:47: WBC 9.9, RBC 4.08 L, Hgb 11.9 L, Hct 34.9 L, MCV 85.5, MCH 29.2, MCHC 34.1, RDW Std Deviation 36.0, RDW Coeff of Akin 11.9, Plt Count 318, MPV 8.7, Immature Gran % (Auto) 0.500, Neut % (Auto) 82.1 H, Lymph % (Auto) 8.9 L, [place] % (Auto) 5.7, Eos % (Auto) 2.3, Baso % (Auto) 0.5, Absolute Neuts (auto) 8.1 H, Absolute Lymphs (auto) 0.88, Nucleated RBC % 0, Sodium 137, Potassium 3.7, Chloride 101, Carbon Dioxide 21.3, Anion Gap 15, BUN 6, Creatinine 0.57 L, Estim Creat Clear Calc 140.17, Est GFR (MDRD) Non-Af 122, BUN/Creatinine Ratio 10.2, Glucose 90, Calcium 9.0, Total Bilirubin 0.50, AST 33 H, ALT 47 H, Alkaline Phosphatase 100, Total Protein 7.2, Albumin 3.7, Globulin 3.5, Albumin/Globulin Ratio 1.0, Lipase 28 Assessment & Plan Assessment/Plan (1) First trimester : PLAN: TRAFFIC OR SYSTEM DISPATCHER was consulted and saw the patient. She recently had a visit yesterday with her liner machine operator. (2) Acute cholecystitis: PLAN: The patient had acute cholecystitis on MRCP and another MRCP was repeated today due to her which shows thickened gallbladder wall and a lot of stones. I recommended laparoscopic cholecystectomy. I discussed the procedure in detail with the patient. I discussed the risks, benefits, and alternatives of the procedure. I discussed the risks including but not limited to bleeding, infection, injury to surrounding organs such as the liver, bile duct, bowels. I did discuss the possibility of having to convert to an open procedure as well as the possibility that if any injuries occurred this may necessitate further surgery at a tertiary care center. I also discussed the risk of loss of the fetus. Ahmet Russell MD Pager: [facility] [address] [place] [address] [address] [place] [address] Office:
[2025-06-14] MEDS: 0.9% Normal Saline (1000mL) 1,000 ML 125 ML IV (14:36)
--- NOTE | 2025-06-14 15:10 | PCM.PRE.AN2 ---
ASA Classification* ASA Classification ASA Classification: 2 (RSI - . Avoid versed, avoid toradol due to . ) and E Assessment & Plan Anesthesia* Anesthesia Assessment Anesthesia Assessment: Discussed sedation and/or anesthesia options, risks, benefits, and alternatives with patient/parents/legal guardian/POA. Questions invited. The patient/parents/legal guardian/POA seems to understand and agrees to proceed with anesthesia plan. Reviewed the physical assessment, medical history, allergy history and patient home medications list prior to surgery/procedure/anesthetic and documented any changes. Performed airway and anesthesia risk assessments. I had a thorough discussion with the patient, as did Dr. Love, regarding the possibility of intrauterine demise due to anesthesia on an early . However, after discussion with Dr. Russell, the patient showed thickening of the gallbladder wall and pericholecystic fluid on MRCP, which necesseitates cholecystectomy. The patient verbalized understanding and wishes to proceed with the surgery. Informed consent with benefits, risks, and alternatives were discussed thoroughly with the patient. Opportunity for questions invited. Anesthesia Type Anesthesia Type: General History Source History Obtained from:: Patient and Chart Anesthesia Focused Assessment* Temperature: 97.6 F Pulse Rate: 69 Blood Pressure: 137/87 Respiratory Rate: 16 Pulse Ox: 99 Oxygen Delivery Method: Room Air Airway Assessment Mouth opens: >3 cm Mallampati Score: II Teeth Condition: Intact Neck Range of motion (ROM): Full ROM Labs Anesthesia Preop lab: CBC WBC, (4.4-11.0) 9.9 K/mm3 Today, 10:47 RBC, (4.2-5.4) 4.08 M/mm3 L Today, 10:47 Hgb, (12.0-15.0) 11.9 g/dL L Today, 10:47 Hct, (37-47) 34.9 % L Today, 10:47 Plt Count, (150-450) 318 K/mm3 Today, 10:47 CHEMISTRY Potassium, (3.3-5.1) 3.7 mmol/L Today, 10:47 Sodium, (133-145) 137 mmol/L Today, 10:47 BUN, (4-19) 6 mg/dL Today, 10:47 Creatinine, (0.70-1.20) 0.57 mg/dL L Today, 10:47 Glucose, (70-99) 90 mg/dL Today, 10:47 TSH, (0.300-4.200) 1.100 uIU/mL 06/09/25, 19:35 COAG PT, (11.7-14.9) 11.4 SECONDS L 10/16/16, 16:45 HCG, Quant, (<9 non-preg) 3186 mIU/mL H 06/12/25, 18:47 Pre-Assessment Diagnosis/Proposed Procedure Planned Operative Procedure(s): Lap renato w IOC Anesthesia History Anesthesia History - cabinetmaker maintenance: Anesthesia History - cabinetmaker maintenance Hx Hospitalization Any Problems With Anesthesia No 06/09/25 09:01 Cholinesterase deficiency No 06/09/25 09:01 You/Your Family Experience No 06/09/25 09:01 fever (hyperthermia) with Relationship Recent Exposure to Contagious No 06/09/25 09:01 Disease Does patient have nerve No 06/09/25 09:01 stimulator Patient instructed to have device shut off --Does patient have Pacemaker or ICD? When Was Last Pacemaker Check QUESTION #4 FULL TEXT: You/Your Family Experience fever (hyperthermia) with Anesthesia Last Oral Intake Last Oral intake: Last Oral Intake NPO since Meds taken in AM with sips of water? Meds patient instructed to take am of surgery PONV PONV - cabinetmaker maintenance: PONV - cabinetmaker maintenance Female HX of Motion Sickness HX of N/V After Surgery Non-Smoker Duration of Surgery greater than 60 minutes Number of Risk Factors PONV Score Height & Weight Height & Weight: Anesthesia: Height & Weight Height 5 ft 4.17 in 06/14/25 10:17 Weight: 77.564 kg 06/14/25 10:17 Body Mass Index (BMI) 29.2 06/14/25 10:17 Respiratory Assessment Respiratory Assessment - cabinetmaker maintenance: Respiratory Tract Infection Hx - cabinetmaker maintenance Hx Respiratory Tract Infection No 06/09/25 09:01 STOP Sleep Apnea STOP Sleep Apnea - cabinetmaker maintenance: STOP Sleep Apnea - cabinetmaker maintenance Hx Hypertension No 06/08/25 19:50 Hx Sleep Apnea No 06/08/25 19:50 CPAP BIPAP Do you snore loudly (louder than talking or can be heard Do you often feel tired/ fatigued/ sleepy during daytime? Has anyone observed you stop breathing during sleep? STOP Results QUESTION #5 FULL TEXT : Do you snore loudly (louder than talking or can be heard through closed doors)? 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 Specify any problems Hx of Preganancy in last 3 Months Nurse Filling Out Transfusion & Questions: Date: Time: Patient unable to answer at this time (ie. confused, unrespo /Reproduction History /Reproductive History - cabinetmaker maintenance: /Reproductive Hx- cabinetmaker maintenance Hx Now Yes: 5weeks 06/14/25 13:46 Gestational Age (in weeks): EDC: Hx Hx Para Hx Section SAB No 06/14/25 13:46 Does the father of the baby or his family experience fever w Father of the baby Malignant Hypertension history comment Active Medications Active Medications: Current Medications Generic Name Dose Route Start Last Admin Trade Name Freq PRN Reason Stop Dose Admin Sodium Chloride 1,000 mls @ 125 mls/hr 06/14/25 10:35 06/14/25 14:36 IV 125 mls/hr .Q8H LIBERTAD Administration PFSH Medical History (Updated 06/14/25 @ 14:[address] Kay Pretty, DO) PCOS (polycystic ovarian syndrome) GERD (gastroesophageal reflux disease) H/O severe pre-eclampsia Home Medications Medication Instructions Recorded Last Taken Type ondansetron 4 mg disintegrating 4 mg PO Q8H PRN PRN Nausea #10 tabs 06/07/25 06/13/25 Rx tablet sennosides 8.6 mg-docusate sodium 2 tab PO BID 5 days #20 tabs 06/11/25 06/14/25 Rx 50 mg tablet (Stimulant Laxative Plus) amoxicillin 875 mg-potassium 1 tab PO BID 06/14/25 06/13/25 History clavulanate 125 mg tablet hydrocodone-acetaminophen 5-325mg 1 tab PO Q8H PRN PRN pain 06/14/25 Unknown History 5mg-325mg oxycodone-acetaminophen 5 mg-325 1 tab PO Q6H PRN PRN pain 06/14/25 06/14/25 History mg tablet Allergy/AdvReac Type Severity Reaction Status Date / Time No Known Allergies Allergy Verified 06/14/25 10:20 Family History Grandfather Diabetes Surgical History H/O oral surgery S/P Social History household members: spouse and children number of children: 1 current occupational status: employed current occupation: [employer] history of recent travel: No sexually active: Yes Smoking Status: Never smoker alcohol intake: never substance use type: does not use what type of physical activity do you participate in: walking and weight training frequency: 1-2 times per week seatbelt use: always do you feel safe at home: Yes additional social history: - Luke Review of Systems (Anesthesia) ROS Narrative System reviewed and no additional complaints, except as documented. Physical Exam Const alert, oriented x3 and average body habitus Resp normal respiratory effort, normal air movement and clear to auscultation bilaterally Cardio regular rate, regular rhythm and no murmurs; Negative for diaphoretic
--- NOTE | 2025-06-14 15:14 | CHAPLAIN ---
Type of Pastoral Visit _x__ Initial Visit ___ Follow-up Visit ___ On-call Visit ___ General Patient Visit ___ Spiritual Assessment ___ Family Conference ___ Bereavement ___ Rapid Response ___ Code Blue ___ Other (describe below) Pastoral Care Referral From _x__ Patient ___ Family ___ Nurse ___ Physician ___ Head Men'S Tennis Coach ___ Litigation Attorney ___ Other (describe below) Sacrament/Intervention _x__ Active listening ___ Anointing ___ Mosque ___ Bereavement ___ Communion ___ Pina exploration ___ ___ Life review _x__ Prayer ___ Reconciliation ___ Sacrament of Sick _x__ Supportive presence ___ Wedding ___ Other (describe below) Pastoral Comments patient was seen in the hallway on way to MRI and she greets this post graduate intern who is known to her; later pt was found in the ED after decision to have surgery this afternoon; pt is offered support and prayer; family members have not yet arrived to be with pt for her surgery; pt welcomes presence and prayer for support
--- NOTE | 2025-06-14 15:30 | GALL_PTH ---
PATIENT: TROY LEARY LOC: MS3 U#:[id number] AGE/SX: 34/F ROOM: [facility] [place] RE06/14/[address]: Dr. Ahmet Russell MD : 1990 BED: 1 DIS: 06/16/2025 SPEC #: [id number] RECD: 06/16/25 07:18 STATUS: ZOILA TE #: [id number] DARIELA: 06/14/25 15:[address]: Ahmet Russell DEPT: SURGICAL PATHOLOGY RECD BY: Francisco Noonan Tissues: A - Gallbladder, NOS Procedures: Surgery Specimen Level III HEADER OPERATION: Laparoscopic cholecystectomy PRE-OP DIAGNOSIS: Acute cholecystitis TISSUE SUBMITTED: A- Gallbladder MICROSCOPIC DIAGNOSIS A. Gallbladder, cholecystectomy: - Acute on chronic cholecystitis with cholelithiasis. MICROSCOPIC DESCRIPTION Slides are reviewed. GROSS DESCRIPTION A. Received in formalin labeled with the patient's name and date of . Designated as "gallbladder" is an 8.4 x 4.2 x 2.6 cm pink-purple to red-avila shaggy somewhat fibrotic gallbladder with moderate amount of loosely adherent blood clot on the serosal surface and an open, grossly dilated, cauterized, apparent cystic duct (3.1 cm in diameter) the presumed cystic duct is inked black and shaved. A lymph node is not present. Opening reveals pale inspissated bile admixed with numerous, green multifaceted choleliths, 0.3 cm to 0.7 cm. The mucosa is light to dark brown-red, granular and necrotic with a maximum wall thickness of 0.9 cm. Cholesterolosis is not present. Manager Group sections are submitted in 4 cassettes, to include the presumed cystic duct margin in cassettes A1-A2. [place] 06/16/2025 CPT:[id number]
[2025-06-14] MEDS: Lactated Ringers 1,000 ML 1000 ML IV (15:31)
[2025-06-14] MEDS: Lidocaine 1% (5 ml sdv) 5 ML Vial IV (15:36)
[2025-06-14] MEDS: fentaNYL 100 MCG/2 ML Ampul 200 MCG IV (16:03)
[2025-06-14] MEDS: Bupiv/Epi 0.25% 30 ML Vial (16:42)
--- NOTE | 2025-06-14 16:58 | PCM.POST.ANE ---
Anesthesia: Postop Eval I Current Vital Signs Temperature: 97.9 F Pulse Rate: 96 Blood Pressure: 142/78 Respiratory Rate: 16 Pulse Ox: 99 Assessment Airway patent: Yes Spontaneous unlabored respirations: Yes nausea: No Vomiting: No Anesthesia Complication: No Fluid Hydration Crystalloid volume administer (ml): 1,000 Total IV fluid infused: 1,000 Progress Note Anesthesia document: Postop Eval 1 completed: Yes
--- NOTE | 2025-06-14 17:07 | OP.PCM_ITS ---
Operative Report (Standard) Operative Information Date of Procedure: 06/14/25 Pre-Operative Diagnosis: Acute cholecystitis Post-Operative Diagnosis: Acute cholecystitis Surgery/Procedure Performed: Laparoscopic partial cholecystectomy truck loader and unloader: No Type of Anesthesia: General/Regional RN Documented Start/Stop Times: Operation Date: 06/14/25 15:30 Case Time Into Pre-Op 06/14/25 14:59 Anesthesia Start 06/14/25 15:31 Into Room 06/14/25 15:31 Procedure Start 06/14/25 15:51 Procedure End 06/14/25 16:46 Anesthesia End 06/14/25 16:51 Out of Room 06/14/25 16:51 Into Recovery 06/14/25 16:53 Procedure Start Time: 15:51 Procedure Stop Time: 16:46 Select all DRAINS/GRAFTS/IMPLANTS that apply: Drains Drain details: TANIKA to bulb suction Estimated Blood Loss: 50 Specimen collected: Yes Description of specimen(s) removed: Gallbladder Description of surgery: After obtaining informed consent patient was brought back to the operating room. General anesthesia was induced. The abdomen was prepped and draped in usual sterile fashion. A small midline incision was made superior to the umbilicus and deepened to the level of fascia. The fascia was elevated and incised. Next the peritoneum was elevated and incised in the same fashion. Finger sweep was performed and the [place] trocar was placed into the abdomen. The balloon was inflated. The abdomen was inflated to 15 mmHg. Next a camera was introduced into the abdomen and the abdomen was inspected. Next under direct visualization three 5-mm ports were placed one subxiphoid and 2 subcostal. The gallbladder was densely adherent to the omentum. It had to be peeled off of the gallbladder. Next the gallbladder was elevated and retracted toward the right shoulder. Dissection was carried inferiorly using suction until it was too adherent to the gallbladder. At this point I elected to perform a partial cholecystectomy as I was unable to get down past the infundibulum. Harmonic scalpel was used to take down the anterior gallbladder and it was transected about 90% of the way down the gallbladder. The gallbladder was then taken off of the gallbladder fossa and placed in a bag. Hemoblast was sprayed over the gallbladder fossa and then it was irrigated and suctioned and there was good hemostasis. A drain was placed through the right upper quadrant incision and placed in the gallbladder fossa. It was sutured to the skin using 3-0 nylon suture. The abdomen was then allowed to desufflate. The midline fascia was closed with interrupted 0 Vicryl sutures. The skin incisions were injected with local anesthetic and closed with interrupted 4-0 Monocryl sutures. Steri-Strips and bandages were applied. Patient was taken to PACU in stable condition. Surgical Findings: Very inflamed gallbladder Complications Complications: No Admit VTE Documentation VTE Mechan Device Prophylaxis: SCD's
--- NOTE | 2025-06-14 17:18 | POSTOPAN2_ITS ---
Anesthesia Postop Eval I Sum Postop Eval Completion status Anesthesia document: Postop Eval 1 completed: Yes Anesthesia Postop Eval I Summary Anesthesia Postop Eval I Summary: Anesthesia Postop Eval I: Assessment Summary Airway patent Yes 06/14/25 16:58 GENERATION ENGINEERING [email or web address] Spontaneous unlabored Yes 06/14/25 16:58 GENERATION ENGINEERING TECHNOLOGIST.[email or web address] respirations Mental status nausea No 06/14/25 16:58 GENERATION ENGINEERING TECHNOLOGIST.[email or web address] Vomiting No 06/14/25 16:58 GENERATION ENGINEERING TECHNOLOGIST.[email or web address] Anesthesia Postop Eval I: Fluid Summary Crystalloid volume administer 1,000 06/14/25 16:58 GENERATION ENGINEERING TECHNOLOGIST.TNES (ml) Colloids volume administered ( ml) Blood Product volume administered (ml) Total IV fluid infused 1,000 06/14/25 16:58 GENERATION ENGINEERING TECHNOLOGIST.TNES Anesthesia Postop Eval I: Summary Notes Anesthesia Complication No 06/14/25 16:58 GENERATION ENGINEERING TECHNOLOGIST.TNES Anesthesia Complication Comment: Post-operative progress note Anesthesia: Postop Eval II Evaluation Mental status: Awake Pain Level: 0 nausea: No Vomiting: No Complications Anesthesia Complication: No
--- NOTE | 2025-06-14 17:18 | PCM.POSTANE2 ---
Anesthesia Postop Eval I Sum Postop Eval Completion status Anesthesia document: Postop Eval 1 completed: Yes Anesthesia Postop Eval I Summary Anesthesia Postop Eval I Summary: Anesthesia Postop Eval I: Assessment Summary Airway patent Yes 06/14/25 16:58 MEDICAL RECORD [email or web address].[email or web address] Spontaneous unlabored Yes 06/14/25 16:58 MEDICAL RECORD SPECIALIST.[email or web address] respirations Mental status nausea No 06/14/25 16:58 MEDICAL RECORD [email or web address].[email or web address] Vomiting No 06/14/25 16:58 MEDICAL RECORD SPECIALIST.[email or web address] Anesthesia Postop Eval I: Fluid Summary Crystalloid volume administer 1,000 06/14/25 16:58 MEDICAL RECORD [email or web address].TNES (ml) Colloids volume administered ( ml) Blood Product volume administered (ml) Total IV fluid infused 1,000 06/14/25 16:58 MEDICAL RECORD SPECIALIST.TNES Anesthesia Postop Eval I: Summary Notes Anesthesia Complication No 06/14/25 16:58 MEDICAL RECORD SPECIALIST.TNES Anesthesia Complication Comment: Post-operative progress note Anesthesia: Postop Eval II Evaluation Mental status: Awake Pain Level: 0 nausea: No Vomiting: No Complications Anesthesia Complication: No
[2025-06-14] MEDS: Piperacil/Tazobactam 3.375 GM in 0.9% Normal Saline (50mL MB+) 50 ML IV (22:27)
[2025-06-15 00:06] VITALS: RESP 15
[2025-06-15] MEDS: 0.9% Normal Saline (1000mL) 1,000 ML 100 ML IV ×2 (03:00→11:45)
[2025-06-15] MEDS: Piperacil/Tazobactam 3.375 GM in 0.9% Normal Saline (50mL MB+) 50 ML IV ×3 (06:16→20:49)
[2025-06-15 06:18] LABS: Hematocrit 33.8 % (37-47); Hemoglobin 11.5 g/dL (12.0-15.0); Immature Granulocytes Count 0.050 X10^3/uL (0.0-0.0); Mean Corp Hgb Conc 34.0 g/dL (32-36); Mean Corpuscular Volume 85.8 fL (81-99); Mean Platelet Vol. 8.4 fl (6.2-12.0); NRBC Flagged by Analyzer 0 % (0-5); Platelet Count 348 K/mm3 (150-450); RBC Distribution Width CV 11.9 % (11.6-14.6); RBC Distribution Width SD 36.6 fl (35.1-43.9); Red Blood Count 3.94 M/mm3 (4.2-5.4); White Blood Count 12.1 K/mm3 (4.4-11.0)
[2025-06-15 06:54] LABS: Anion Gap 13 (5-15); BUN 6 mg/dL (4-19); BUN/Creat Ratio 10.4 RATIO (10-20); Calcium,Total 8.6 mg/dL (7.6-11.0); Carbon Dioxide 19.8 mmol/L (21.0-32.0); Chloride 102 mmol/L (98-108); Estimated Creatinine Clearance 148.33 ml/min (50-250); Glucose 85 mg/dL (70-99); Potassium 4.1 mmol/L (3.3-5.1)
[2025-06-15 08:00] VITALS: BP 126/74; PULSE 77; RESP 14; TEMP 36.8; O2SAT 98
--- NOTE | 2025-06-15 08:05 | PCM.PN.SRG ---
Subjective Subjective Patient seen and examined during AM rounds. She is found resting in bed. She states that she has some soreness but overall is doing well. She denies any passage of flatus Objective Data Objective Data Vital Signs: Vital Signs Temp Pulse Resp BP Pulse Ox O2 Del Method 98.2 F 71 15 138/81 H 99 Room Air 06/14/25 22:25 06/14/25 22:25 06/15/25 00:06 06/14/25 22:25 06/14/25 22:25 06/15/25 00:06 Oxygen Delivery Method Room Air Weight: 165 lb 5.547 oz Body Mass Index (BMI) 28.3 Intake & Output: Intake and Output for Last 24 Hours 06/13/25 06/14/25 06/15/25 23:59 23:59 23:59 Intake Total 1999.00 / 1999.00 50 / 50 Output Total 80 / 480 400 / 400 Balance 1920.00 / 1520.00 -350 / -350 Lab / Micro Data 06/15/25 06:00 06/15/25 06:00 Labs: Laboratory Results - last 24 hr 06/14/25 10:47: WBC 9.9, RBC 4.08 L, Hgb 11.9 L, Hct 34.9 L, MCV 85.5, MCH 29.2, MCHC 34.1, RDW Std Deviation 36.0, RDW Coeff of Akin 11.9, Plt Count 318, MPV 8.7, Immature Gran % (Auto) 0.500, Neut % (Auto) 82.1 H, Lymph % (Auto) 8.9 L, [place] % (Auto) 5.7, Eos % (Auto) 2.3, Baso % (Auto) 0.5, Absolute Neuts (auto) 8.1 H, Absolute Lymphs (auto) 0.88, Nucleated RBC % 0, Sodium 137, Potassium 3.7, Chloride 101, Carbon Dioxide 21.3, Anion Gap 15, BUN 6, Creatinine 0.57 L, Estim Creat Clear Calc 140.17, Est GFR (MDRD) Non-Af 122, BUN/Creatinine Ratio 10.2, Glucose 90, Calcium 9.0, Total Bilirubin 0.50, AST 33 H, ALT 47 H, Alkaline Phosphatase 100, Total Protein 7.2, Albumin 3.7, Globulin 3.5, Albumin/Globulin Ratio 1.0, Lipase 28 06/15/25 06:00: WBC 12.1 H, RBC 3.94 L, Hgb 11.5 L, Hct 33.8 L, MCV 85.8, MCH 29.2, MCHC 34.0, RDW Std Deviation 36.6, RDW Coeff of [place]kin 11.9, Plt Count 348, MPV 8.4, Immature Gran % (Auto) 0.400, Neut % (Auto) 85.8 H, Lymph % (Auto) 7.6 L, [place] % (Auto) 5.2, Eos % (Auto) 0.5, Baso % (Auto) 0.5, Absolute Neuts (auto) 10.4 H, Absolute Lymphs (auto) 0.92, Nucleated RBC % 0, Sodium 135, Potassium 4.1, Chloride 102, Carbon Dioxide 19.8 L, Anion Gap 13, BUN 6, Creatinine 0.53 L, Estim Creat Clear Calc 148.33, Est GFR (MDRD) Non-Af 124, BUN/Creatinine Ratio 10.4, Glucose 85, Calcium 8.6 Radiography Diagnostic Testing: Radiology Impression MRCP 06/14/25 11:03 IMPRESSION: 1. Cholelithiasis with persistent signs of acute cholecystitis. Worsening gallbladder wall thickening but improving pericholecystic inflammation. 2. Choledocholithiasis. Biliary stent present with normal caliber bile ducts. 2. Interval decrease in right pleural effusion and ascites. Reading Location: [facility] Physical Exam Const oriented x3 and no apparent distress GI GI Narrative: Nondistended, operative dressings intact over port sites are clean and dry, soft, appropriately tender to palpation Assessment & Plan Assessment/Plan (1) Acute cholecystitis: PLAN: Patient has postoperative day 1 from laparoscopic subtotal cholecystectomy with drain placement. Overall she is doing well this morning. Vital signs are reassuring. Case was noted to be characterized by severe inflammation and oozing but hemoglobin today is stable from preop. Given the hemoperitoneum plan to await return of bowel function before advancing diet. I was notified by nursing later in the day that patient had begun to pass flatus so she was initiated on a clear liquid diet. Will monitor for tolerance. Patient's exam is reassuring and drain output is serosanguineous without evidence of bile. Marco Phillips MD General Surgery Endocrine Surgery Pager: [facility] [address] [place] [address] [address] [place] [address] Office: [phone] (2) First trimester : PLAN: SHAREPOINT CONSULTANT was consulted and saw the patient. She recently had a visit yesterday with her dive supervisor. Charges/Coding Visit Charges Inpatient E&M: 67801 Subs Hosp L2
[2025-06-15] MEDS: 0.9% Saline Lock 10 ML Syringe IV ×2 (11:51→14:23)
[2025-06-15 12:02] VITALS: BP 127/83; PULSE 77; RESP 16; TEMP 36.8; O2SAT 99
[2025-06-15 12:11] VITALS: BP 127/83; PULSE 77; RESP 16; TEMP 36.8; O2SAT 99
[2025-06-15 16:00] VITALS: BP 126/82; PULSE 67; RESP 15; TEMP 36.7; O2SAT 100
[2025-06-15 20:46] VITALS: BP 134/82; PULSE 72; RESP 16; TEMP 36.9; O2SAT 98
[2025-06-16 02:16] VITALS: BP 137/76; PULSE 68; RESP 16; TEMP 36.8; O2SAT 97
[2025-06-16] MEDS: 0.9% Normal Saline (1000mL) 1,000 ML 50 ML IV (02:21)
[2025-06-16 04:54] VITALS: BP 130/80; PULSE 69; RESP 16; TEMP 36.9; O2SAT 97
[2025-06-16] MEDS: Piperacil/Tazobactam 3.375 GM in 0.9% Normal Saline (50mL MB+) 50 ML IV (04:57)
[2025-06-16 05:41] LABS: Hematocrit 33.7 % (37-47); Hemoglobin 11.3 g/dL (12.0-15.0); Immature Granulocytes Count 0.060 X10^3/uL (0.0-0.0); Mean Corp Hgb Conc 33.5 g/dL (32-36); Mean Corpuscular Volume 86.9 fL (81-99); Mean Platelet Vol. 8.5 fl (6.2-12.0); NRBC Flagged by Analyzer 0 % (0-5); Platelet Count 363 K/mm3 (150-450); RBC Distribution Width CV 12.0 % (11.6-14.6); RBC Distribution Width SD 37.5 fl (35.1-43.9); Red Blood Count 3.88 M/mm3 (4.2-5.4); White Blood Count 9.2 K/mm3 (4.4-11.0)
[2025-06-16 06:13] LABS: AST(SGOT) 28 U/L (<=31); Alanine Aminotransfer ALT/SGPT 55 U/L (<=34); Albumin, Serum 3.4 g/dL (3.5-5.0); Alkaline Phosphatase 86 U/L (35-104); Anion Gap 14 (5-15); BUN 6 mg/dL (4-19); BUN/Creat Ratio 9.9 RATIO (10-20); Calcium,Total 8.5 mg/dL (7.6-11.0); Carbon Dioxide 21.6 mmol/L (21.0-32.0); Chloride 100 mmol/L (98-108); Estimated Creatinine Clearance 128.87 ml/min (50-250); Globulin 3.3 g/dL (2.2-4.2); Glucose 75 mg/dL (70-99); Potassium 3.7 mmol/L (3.3-5.1)
--- OUTSIDE RECORDS SUMMARY | 2025-06-16 07:54 | XMS RPT_ITS | CCD ---
Author Organization [facility] Inform ion Partnership VERMIN EXTERMINATOR [facility] Care Team Providers Care Special Tax Auditor Name Role Phone [employer] Unavailable Unavailable NO REFERRING DR Unavailable Unavailable DON FRANKEL Unavailable Unavailable Care Physician, No Primary Primary Care Provider Unavailable Care Physician, No Primary Referring Provider Un available Dr. Marco Phillips Attending Provider RADHA SHAH, DR GILBERTO Kimbrough Primary Care Physician [phone] Kelsy Macdonald NP Referring Unavailabl e Renae SALES PRODUCT MANAGERKelsy Attending Unavailabl e Care Physician, No Primary Primary Care Unava ilable KELSY MACDONALD CNP Attending Unavailable KELSY MACDONALD CNP Consulting Unavailable KELSY MACDONALD CNP Primary Care Unavailable KELSY MACDONALD CNP Admitting Unavailable PROVIDER, UNKNOWN Consulting Unavailable RADHA SHAH, DR GILBERTO Kimbrough Primary Care Unavailab buck GARRETT MINIATURE MODEL MAKER-[facility], STEFANIA Tan Attending Gloria vailable Problems Active [...] Ordering Provider: STEFANIA GARRETT RP [facility] US RUQ (GB/PANCREAS)on 07-19 US RUQ (GB/PANCREAS) [place] [address] Patient: TROY LEARY Phone#: : 1990 Age: 33 Gender: F Pt. Type: Out Account: [id number] Location: Ordering: KELSY MACDONALD Exam Date: 07/19/2024/10:16 Family Phys: Charge Code: 106712 Physician: [place] Order #: [id number] Dose#: PROCEDURE: RUQ (GB) ULTRASOUND COMPARISON: None. INDICATIONS: RUQ pain FINDINGS: LIVER: Normal. Normal size and echotexture. No significant masses. BILIARY: Multiple gallbladder calculi are present. Procurement Officer calculus is 8 millimeters in diameter. The gallbladder wall is minimally in thickness. The common bile duct is normal at 1.1 millimeter. PANCREAS: Normal. No visible mass, abnormal atrophy, or ductal dilatation. RIGHT KIDNEY: Normal. No mass or obstruction. OTHER: Negative. CONCLUSION: 1. Cholelithiasis. DICTATED BY: ROSITA GERARDO MD ON 07/19/2024 AT 11:09 APPROVED BY: ROSITA GERARDO MD ON 07/19/2024 AT 11:11 Normal [facility] Amylaseon 07-08-2024 KATE 63 U/L Normal 25-115 [facility] Comment on above: Performed By: #### L 501.9520, L500.4050, L506.0400, L501.2400, L501.92079, L501.2450, L100.0100 #### [facility] Laboratory [address] [place], [address] CBC W/Diff, Automatedon 06-20 Absolute Lymph 1.64 X10 3/uL Normal 0.83-4.51 [facility] Comment on above: Performed By: #### L 501.9520, L500.4050, L506.0400, L501.2400, L501.08906, L501.2450, L100.0100 #### [facility] [address] [place], [address] Absolute Neut 3.4 X10 3/uL Normal 2.0-7.7 [facility] Comment on above: Performed By: #### L 501.9520, L500.4050, L506.0400, L501.2400, L501.54500, L501.2450, L100.0100 #### [facility] [address] [place], [address] Basophils/100 WBC (Bld) 0.7 % Normal 0-1 [facility] Comment on above: Performed By: #### L 501.9520, L500.4050, L506.0400, L501.2400, L501.81684, L501.2450, L100.0100 #### [facility] [address] [place], [address] Eosinophils/100 WBC (Bld) 10.6 % High 0-5 [facility] Comment on above: Performed By: #### L 501.9520, L500.4050, L506.0400, L501.2400, L501.09832, L501.2450, L100.0100 #### [facility] [address] [place], [address] Erythrocyte distribution width (RBC) [Ratio] 11.9 % Normal 11.6-14.6 [facility] Comment on above: Performed By: #### L 501.9520, L500.4050, L506.0400, L501.2400, L501.83601, L501.2450, L100.0100 #### [facility] [address] [place], [address] Hematocrit (Bld) [Volume fraction] 43.2 % Normal 37-47 [facility] Comment on above: Performed By: #### L 501.9520, L500.4050, L506.0400, L501.2400, L501.23722, L501.2450, L100.0100 #### [facility] [address] [place], [address] Hemoglobin (Bld) [Mass/Vol] 14.6 g/dL Normal 12.0-15.0 [facility] Comment on above: Performed By: #### L 501.9520, L500.4050, L506.0400, L501.2400, L501.42053, L501.2450, L100.0100 #### [facility] [address] [place], [address] IG% 0.300 Normal 0.0-0.9 [facility] Comment on above: Result Comment: IG% - Immature Granulocytes (promyelocytes, myelocytes and metamyelocytes) > 1% indicates that a LEFT SHIFT is Present. Performed By: #### L 501.9520, L500.4050, L506.0400, L501.2400, L501.19124, L501.2450, L100.0100 #### [facility] [address] [place], [address] Lymphocytes/100 WBC (Bld) 26.7 % Normal 19-41 [facility] Comment on above: Performed By: #### L 501.9520, L500.4050, L506.0400, L501.2400, L501.70635, L501.2450, L100.0100 #### [facility] [address] [facility] [place], [address] MCH (RBC) [Entitic mass] 28.7 pg Normal 27.0-32.0 [facility] Comment on above: Performed By: #### L 501.9520, L500.4050, L506.0400, L501.2400, L501.79090, L501.2450, L100.0100 #### [facility] [address] [facility] [place], [address] MCHC (RBC) [Mass/Vol] 33.8 g/dL Normal 32-36 [facility] Comment on above: Performed By: #### L 501.9520, L500.4050, L506.0400, L501.2400, L501.60195, L501.2450, L100.0100 #### [facility] [address] [place], [address] MCV (RBC) [Entitic vol] 85.0 fL Normal 81-99 [facility] Comment on above: Performed By: #### L 501.9520, L500.4050, L506.0400, L501.2400, L501.27287, L501.2450, L100.0100 #### [facility] [address] [place], [address] Monocytes/100 WBC (Bld) 6.3 % Normal 0-10 [facility] Comment on above: Performed By: #### L 501.9520, L500.4050, L506.0400, L501.2400, L501.33501, L501.2450, L100.0100 #### [facility] [address] [place], [address] Neutrophils/100 WBC (Bld) 55.4 % Normal 47-70 [facility] Comment on above: Performed By: #### L 501.9520, L500.4050, L506.0400, L501.2400, L501.07966, L501.2450, L100.0100 #### [facility] [address] [place], [address] Nucleated RBC (Bld) [#/Vol] 0 10*3/uL Normal 0-5 [facility] Comment on above: Performed By: #### L 501.9520, L500.4050, L506.0400, L501.2400, L501.01616, L501.2450, L100.0100 #### [facility] [address] [place], [address] Platelet mean volume (Bld) [Entitic vol] 9.4 fL Normal 6.2-12.0 [facility] Comment on above: Performed By: #### L 501.9520, L500.4050, L506.0400, L501.2400, L501.90831, L501.2450, L100.0100 #### [facility] [address] [place], [address] Platelets (Bld) [#/Vol] 268 10*3/uL Normal 150-450 [facility] Comment on above: Performed By: #### L 501.9520, L500.4050, L506.0400, L501.2400, L501.27847, L501.2450, L100.0100 #### [facility] [address] [place], [address] (645) RBC (Bld) [#/Vol] 5.08 10*6/uL Normal 4.2-5.4 [facility] Comment on above: Performed By: #### L 501.9520, L500.4050, L506.0400, L501.2400, L501.29600, L501.2450, L100.0100 #### [facility] [address] [place], [address] (406) RDW SD 35.8 fl Normal 35.1-43.9 [facility] Comment on above: Performed By: #### L 501.9520, L500.4050, L506.0400, L501.2400, L501.08468, L501.2450, L100.0100 #### [facility] [address] [place], [address] WBC (Bld) [#/Vol] 6.2 10*3/uL Normal 4.4-11.0 [facility] Comment on above: Performed By: #### L 501.9520, L500.4050, L506.0400, L501.2400, L501.43604, L501.2450, L100.0100 #### [facility] [address] [place], [address] Comprehensive Metabolic Prof ilon 07-08-2024 Albumin [Mass/Vol] 4.0 g/dL Normal 3.2-5.0 [facility] Comment on above: Performed By: #### L 501.9520, L500.4050, L506.0400, L501.2400, L501.81921, L501.2450, L100.0100 #### [facility] [address] [place], [address] Albumin/Globulin [Mass ratio] 1.2 {ratio} Normal 0.9-2.4 [facility] Comment on above: Performed By: #### L 501.9520, L500.4050, L506.0400, L501.2400, L501.29963, L501.2450, L100.0100 #### [facility] [address] [place], [address] ALK P 64 U/L Normal 45-117 [facility] Comment on above: Performed By: #### L 501.9520, L500.4050, L506.0400, L501.2400, L501.87187, L501.2450, L100.0100 #### [facility] [address] [place], [address] ALT [Catalytic activity/Vol] 37 U/L Normal 13-56 [facility] Comment on above: Performed By: #### L 501.9520, L500.4050, L506.0400, L501.2400, L501.27850, L501.2450, L100.0100 #### [facility] [address] [place], [address] AST [Catalytic activity/Vol] 16 U/L Normal 15-37 [facility] Comment on above: Performed By: #### L 501.9520, L500.4050, L506.0400, L501.2400, L501.60143, L501.2450, L100.0100 #### [facility] [address] [place], [address] Bilirubin [Mass/Vol] 0.50 mg/dL Normal 0.20-1.00 [facility] Comment on above: Result Comment: For patients on eltrombopag therapy, use of Dimension Sultana TBIL is not recommended. Performed By: #### L 501.9520, L500.4050, L506.0400, L501.2400, L501.41553, L501.2450, L100.0100 #### [facility] [address] [place], [address] BUN/CRE 16.7 RATIO Normal 10-20 [facility] Comment on above: Performed By: #### L 501.9520, L500.4050, L506.0400, L501.2400, L501.25573, L501.2450, L100.0100 #### [facility] [address] [place], [address] CA,Total 9.3 mg/dL Normal 8.5-10.1 [facility] Comment on above: Performed By: #### L 501.9520, L500.4050, L506.0400, L501.2400, L501.23566, L501.2450, L100.0100 #### [facility] [address] [place], [address] Chloride [Moles/Vol] 106 mmol/L Normal 98-107 [facility] Comment on above: Performed By: #### L 501.9520, L500.4050, L506.0400, L501.2400, L501.47671, L501.2450, L100.0100 #### [facility] [address] [place], [address] CO2 [Moles/Vol] 28.0 mmol/L Normal 21.0-32.0 [facility] Comment on above: Performed By: #### L 501.9520, L500.4050, L506.0400, L501.2400, L501.88020, L501.2450, L100.0100 #### [facility] [address] [place], [address] Creatinine [Mass/Vol] 0.72 mg/dL Normal 0.55-1.02 [facility] Comment on above: Result Comment: The validity of the calculated GFR GFRAA in patients over 70 years has not been determined. Clinical correlation is essential. Performed By: #### L 501.9520, L500.4050, L506.0400, L501.2400, L501.41883, L501.2450, L100.0100 #### [facility] [address] [place], [address] EST GFR - AA 120 mL/min Normal >60 [facility] Comment on above: Result Comment: Afri can Portuguese GFR Calc Performed By: #### L 501.9520, L500.4050, L506.0400, L501.2400, L501.92529, L501.2450, L100.0100 #### [facility] [address] [place], [address] GAP 5 Normal 5-15 [facility] Comment on above: Performed By: #### L 501.9520, L500.4050, L506.0400, L501.2400, L501.11820, L501.2450, L100.0100 #### [facility] [address] [place], [address] GFR/1.73 sq M.predicted among non-blacks MDRD (S/P/Bld) [Vol rate/Area] 99 mL/min/{1.73_m2} Normal >60 [facility] Comment on above: Result Comment: Non- GFR Calc Performed By: #### L 501.9520, L500.4050, L506.0400, L501.2400, L501.65852, L501.2450, L100.0100 #### [facility] [address] [place], [address] Globulin (S) [Mass/Vol] 3.4 g/dL Normal 2.2-4.2 [facility] Comment on above: Performed By: #### L 501.9520, L500.4050, L506.0400, L501.2400, L501.26447, L501.2450, L100.0100 #### [facility] [address] [place], [address] Glucose [Mass/Vol] 80 mg/dL Normal 74-106 [facility] Comment on above: Performed By: #### L 501.9520, L500.4050, L506.0400, L501.2400, L501.48572, L501.2450, L100.0100 #### [facility] [address] [place], [address] Potassium [Moles/Vol] 4.1 mmol/L Normal 3.5-5.1 [facility] Comment on above: Performed By: #### L 501.9520, L500.4050, L506.0400, L501.2400, L501.84821, L501.2450, L100.0100 #### [facility] [address] [place], [address] Sodium [Moles/Vol] 138 mmol/L Normal 136-145 [facility] Comment on above: Performed By: #### L 501.9520, L500.4050, L506.0400, L501.2400, L501.28575, L501.2450, L100.0100 #### [facility] [address] [place], [address] T PROT 7.4 g/dL Normal 6.4-8.2 [facility] Comment on above: Performed By: #### L 501.9520, L500.4050, L506.0400, L501.2400, L501.40521, L501.2450, L100.0100 #### [facility] [address] [place], [address] Urea nitrogen [Mass/Vol] 12 mg/dL Normal 7-18 [facility] Comment on above: Performed By: #### L 501.9520, L500.4050, L506.0400, L501.2400, L501.39437, L501.2450, L100.0100 #### [facility] [address] [place], [address] Free T3on 07-08-2024 Free T3 [Mass/Vol] 2.7 pg/mL Normal 2.18-3.98 [facility] Comment on above: Performed By: #### L 501.9520, L500.4050, L506.0400, L501.2400, L501.15186, L501.2450, L100.0100 #### [facility] [address] [place], [address] Lipaseon 07-08-2024 Lipase [Catalytic activity/Vol] 72 U/L Normal 13-75 [facility] Comment on above: Result Comment: Lynn jackson note: LIPASE revised reference range effective 22. New Lipase methodology. Expected to produce lower values than the previous assay method. NEW Reference Range: 13 - 75 U/L Performed By: #### L 501.9520, L500.4050, L506.0400, L501.2400, L501.92558, L501.2450, L100.0100 #### [facility] [address] [place], [address] T4 Free Directon 07-08-2024 T4 FREE DIRECT 0.98 ng/dL Normal 0.76-1.46 [facility] Comment on above: Performed By: #### L 501.9520, L500.4050, L506.0400, L501.2400, L501.51298, L501.2450, L100.0100 #### [facility] [address] [place], [address] Thyroid Stim Hormone (TSH)on 07-08-2024 TSH 1.210 uIU/mL Normal 0.358-3.740 [facility] Comment on above: Performed By: #### L 501.9520, L500.4050, L506.0400, L501.2400, L501.28827, L501.2450, L100.0100 #### [facility] [address] [place], [address] Vital Signs Date Time Vital Sign Value Performing Clinician Aurelio roman 11-14-2021 13:59-0400 Body height 160.02 cm No Primary Care Physician [facility] Work Phone: 11-14-2021 13:59-0400 Body mass index (BMI) [Ratio] 31.8 kg/m2 No Primary Care Physician [facility] Work Phone: 11-14-2021 13:59-0400 Body weight 81.64 kg No Primary Care Physician [facility] Work Phone: 11-14-2021 13:59-0400 Diastolic blood pressure 85 mm[Hg] No Primary Care Physician [facility] Work Phone: 11-14-2021 13:59-0400 Respiratory rate 16 /min No Primary Care Physician [facility] Work Phone: 11-14-2021 13:59-0400 Systolic blood pressure 139 mm[Hg] No Primary Care Physician [facility] Work Phone: 11-06-2021 00:51-0400 Body height 160.02 cm [facility] Work Phone: 11-06-2021 00:51-0400 Body mass index (BMI) [Ratio] 32.4 kg/m2 [facility] Work Phone: 11-06-2021 00:51-0400 Body temperature 96.7 [degF] [facility] Work Phone: 11-06-2021 00:51-0400 Body weight 83 kg [facility] Work Phone: 11-06-2021 00:51-0400 Diastolic blood pressure 83 mm[Hg] [facility] Work Phone: 11-06-2021 00:51-0400 Heart rate 46 /min [facility] Work Phone: 11-06-2021 00:51-0400 Respiratory rate 15 /min [facility] Work Phone: 11-06-2021 00:51-0400 SaO2% (BldA) [Mass fraction] 99 % [facility] Work Phone: 11-06-2021 00:51-0400 Systolic blood pressure 132 mm[Hg] [facility] Work Phone: Encounters Encounter Date Encounter Type Care Provider Facility Start: 05-10-2025 End: 05-10-[address] GILBERTO GARCIA MD Facility:[facility] Start: 05-10-2025 End: 05-10-2025 Patient encounter procedure STEFANIA GARRETT MINIATURE MODEL MAKER-[facility] Start: 07-19-2024 End: 07-19-2024 ambulatory KELSY MACDONALD [facility] Start: 07-08-2024 ambulatory Kelsy Macdonald NP Fa cility:[facility] Start: 03-30-2024 End: 03-30-2024 Patient encounter procedure STEFANIA GARRETT MINIATURE MODEL MAKER-[facility] Start: 11-18-2021 End: 11-18-2021 Patient encounter procedure No Primary Care Physician [facility] Start: 11-14-2021 End: 11-14-2021 Patient encounter procedure No Primary Care Physician [facility] Start: 11-06-2021 End: 04-20-2022 Emergency department patient visit [facility] Start: 11-11-2016 End: 11-11-2016 Emergency department patient visit [facility] Facility:[facility] Procedures Date Procedure Procedure Detail Performing Clinician Start: 11-18-2021 US scan of gallbladder No Primary Care Physician Plan of Treatment Date Care Activity Detail Author Patient Education ED Gallstones with Bili bhavya Colic [facility] Work Phone: Patient referral [facility] Work Phone: Payers Date Payer Category Payer Self-pay [id number] 1990 Unknown [id number] 1990 Unknown [id number] Unknown [id number] Unknown SELF PAY INSURANCE [id number] Unknown [id number] Unknown Social History Date Type Detail Facility [facility] Work Phone: Start: 11-06-2021 End: 11-14-2021 Tobacco smoking status NHIS Unknown if ever smoked [facility] Work Phone: Start: 11-01-2019 None [facility] Work Phone: Start: 1990 Sex Assigned At Female [facility] Work Phone: Tobacco smoking status [facility] Start: 08-07-2015 Sex Female (finding) [facility] Clinical Note 05-10-2025 Note Date & Type Note Facility 05-10-2025 Note Exam Date Time Procedure Performing Provider Status 05/10/25 11:23 AM US Pelvis Non-OB W/Transvaginal PAULA MCKINNON MD; Auth (Verified) [id number] ORIGINAL EXAMINATION: Ultrasound pelvis, 05/10/2025 11:29 am [...] 4:01:29 PM Ordering Provider: STEFANIA GARRETT RP [facility] Evaluation + Plan note Note Date & Type Note Facility Evaluation + Plan note No data available for this section [facility] Evaluation note Note Date & Type Note Facility Evaluation note No assessment information availa ble [facility] Work Phone: Evaluation note Note Date & Type Note Facility Evaluation note Diagnosis Onset Date Cholelithiasis acute RUQ pain acute [facility] Work Phone: Hospital Discharge instructions Note Date [...] feeding tube, life support and prolonged hospitalization. [facility] Work Phone: Hospital Discharge instructions Note Date & Type Note Facility Hospital Discharge instructions [facility] Work Phone: Hospital Discharge instructions Note Date & Type Note Facility Hospital Discharge instructions No data available for this section [facility] Progress note Note Date & Type Note Facility Progress note No data available for this section [facility] Summary Purpose Family History No Family History Records Found Relationship Condition Age at Onset Recorded Date/T kanu grandfather Diabetes mellitus Unknown Advance Directives No Advanced Directives Records Found Advance Directive Response Recorded Date/ Time Living Will No November 06, 2021 12:55am Power of Medical Billing Service No November 06 12:55am Chief Complaint and Reason for Visit Chief Complaint abd pain Chief Complaint abd pain POSSIBLE GALLBLADDER. ED 11/06 RUQ ABD PAIN Reason for Visit Cholelithiasis RUQ pain Additional Source Comments INFORMATION SOURCE (unrecogn ized section and content) DATE CREATED AUTHOR 01/13/2018 [facility] DATE CREATED AUTHOR AUTHOR'S ORGANIZ ATION 07/11/2024 [facility] DATE CREATED AUTHOR AUTHOR'S ORGANIZ ATION 07/28/2024 [facility] DATE CREATED AUTHOR AUTHOR'S ORGANIZ ATION 05/14/2025 [facility] Goals (unrecognized section and content) Goals may be documented in a n alternate sectionGoals may be documented in an alternate section No data available for this section No data available for this section Patient Care team informatio n (unrecognized section and content) Care Team Personnel Name: GILBERTO GARCIA MD Member Role: Primary Care Physician Address: Address: [address] [place] [id number] Care Team Related Persons Name: RICHARD LEARY Address: [address] [place] [address] Care Team Personnel Name: GILBERTO GARCIA MD Member Role: Primary Care Physician Address: [address] [place] [address]- [place] [employer]: Care Team Related Persons Name: [...] BE BASED ON THE PRIMARY CLINICAL RECORDS. [employer] [facility]. provides no warranty or guarantee of the accuracy or completeness of information in this document.
[2025-06-16 07:59] VITALS: BP 121/84; PULSE 82; RESP 14; TEMP 36.4; O2SAT 98
--- NOTE | 2025-06-16 11:02 | DCINST_ITS ---
Discharge Instructions DC O2, CPAP, BIPAP needs Home O2 Discharge instructions: No Dressing / Incision Discharge Activity: May Not Drive (No driving while using narcotic pain medication) and May Shower (Postoperative day 1) May shower in (days): 2 Ice area for (Minutes): 20 Lifting Restrictions: No lifting greater than 15 pounds for 2 weeks after surgery Dressing / Incision Call your doctor if your incision/area has: Continuous Slow Oozing, Increased Pain/ Swelling, Increased Redness, Foul Smelling Discharge and Swelling at the incision site Call your doctor if you observe: Fever of 101 or Higher Remove Dressing in: 2 days (Please leave Steri-Strips intact until they fall off spontaneously or are taken off at your follow-up visit) Cleanse incision/area with: Soap & Water Follow Up Care Please Follow Up With: Ahmet Russell MD When: 7-10days postop Test Results: Test results from this visit will be discussed in further detail at your follow- up appointment, if applicable. Discharge Plan Admission Admit Date/Time: 06/14/25 17:10 Primary Reason for Your Visit: Gallbladder surgery Attending Provider: Ahmet Russell Primary Care Provider: Evelia Bird Discharge Orders/Prescriptions Prescriptions: Continued hydrocodone-acetaminophen 5-325 mg tablet 1 tab PO Q8H PRN PRN (Reason: pain) amoxicillin-pot clavulanate 875-125 mg tablet 1 tab PO BID oxycodone-acetaminophen 5-325 mg tablet 1 tab PO Q6H PRN PRN (Reason: pain) ondansetron 4 mg tablet,disintegrating 4 mg PO Q8H PRN PRN (Reason: Nausea) Qty: 10 0RF sennosides-docusate sodium [Stimulant Laxative Plus] 8.6-50 mg Tablet 2 tab PO BID 5 Days Qty: 20 0RF Referrals / Follow Up: Evelia Bird NP-C [Primary Care Provider, Family Practice] Disposition Disposition (needs filled in before D/C Order can be placed): Home, Self Care
--- NOTE | 2025-06-16 11:17 | CASEMGMT ---
JORDY VANEGAS Assessment: Face to Face with pt for initial transition planning/care coordination assessment. RN GUILHERME introduced self and role at [facility], pt voices understanding and consents to assessment. Pt is A&O x4 and answers all questions appropriately at this time. Pt sitting up in chair, dressed in no distress. Care providers, pharmacy, and demographics verified/updated. Admitting Dx:gallbladder, Strata Score: 2 PCP:Pelon Specialists:Nancy, F[employer]T [employer] STEAMER [facility] Insurance: [facility] [employer] Prescription Benefit: pt not sure LNOK: Harshal Haider, Living Arrangements: Pt lives with and 8 y/o son in a two story home with one step to enter. Pt reports she is I in ADL/IADLs and denies concerns at home. Transportation: Pt drives self and denies concerns with transportation. DME:Denies HHC/SNF: Denies hx of Pt states no concerns with going home at time of dc. Pt states no further concerns/needs. Pt drain was pulled this date. CM to follow. Advised pt to ask CM if any further questions/concerns/needs arise, voices understanding. See CR intervention. Pt Goal: Home Plan: Home Edward SPENCE CM
--- NOTE | 2025-06-16 11:17 | PCM.DC.SUM ---
Providers Date of Admission: 06/14/25 Primary Care Physician: HENRIQUE Matos Reason For Visit: GALLBLADDER Diagnosis Discharge Diagnosis (1) Acute cholecystitis: Status: Acute Code(s): K81.0 - Acute cholecystitis Plan: Patient has postoperative day 1 from laparoscopic subtotal cholecystectomy with drain placement. Overall she is doing well this morning. Vital signs are reassuring. Case was noted to be characterized by severe inflammation and oozing but hemoglobin today is stable from preop. Given the hemoperitoneum plan to await return of bowel function before advancing diet. I was notified by nursing later in the day that patient had begun to pass flatus so she was initiated on a clear liquid diet. Will monitor for tolerance. Patient's exam is reassuring and drain output is serosanguineous without evidence of bile. Marco Phillips MD General Surgery Endocrine Surgery Pager: [facility] [address] [place] [address], [address] [place] [address] Office: [phone] (2) First trimester : Status: Acute Code(s): Z34.91 - Encounter for supervision of normal , unspecified, first trimester Plan: BRICKMASON SUPERVISOR was consulted and saw the patient. She recently had a visit yesterday with her shot core drill operator helper. Medications at Discharge Home Medications ondansetron 4 mg disintegrating tablet 4 mg PO Q8H PRN PRN Nausea #10 tabs 06/07/25 sennosides 8.6 mg-docusate sodium 50 mg tablet (Stimulant Laxative Plus) 2 tab PO BID 5 days #20 tabs 06/11/25 amoxicillin 875 mg-potassium clavulanate 125 mg tablet 1 tab PO BID 06/14/25 hydrocodone-acetaminophen 5-325mg 5mg-325mg 1 tab PO Q8H PRN PRN pain 06/14/25 oxycodone-acetaminophen 5 mg-325 mg tablet 1 tab PO Q6H PRN PRN pain 06/14/25 Hospital Course Operations cholecystecomy (06/14/2025) Procedures None Summary of Care Provided Hospital Course: Patient 34-year-old female with history of recent diagnosis of choledocholithiasis with cholecystitis status post ERCP with stent placement who was discharged several days thereafter and re-presented to the hospital ER with complaints of progressive abdominal discomfort. MRCP was obtained showing progression of signs consistent with acute cholecystitis and patient was thus recommended urgent laparoscopic cholecystectomy after counseling her extensively on the risks related to loss given her concurrent first trimester . Dr. Russell reported the procedure was technically difficult and ended up performing a subtotal cholecystectomy with drain placement. Patient was postoperatively admitted to the medical surgical mao for ongoing monitoring and ongoing IV antibiotic therapy. Postoperative day 1 her laboratories and other clinical indices were reassuring. She experienced return of bowel function later that day and was advanced to a clear liquid diet. Morning of postoperative day 2 she reported further improvements in her wellbeing and her labs remained reassuring. Notably, her operative drain was evaluated on 3 separate occasions and never appeared bilious and its output dramatically decreased over her period of inpatient observation. Thus, after confirming with Dr. Russell, patient's drain was discontinued at bedside and she was advanced to a regular diet. She was monitored for tolerance but ultimately granted discharge to home with stated expectation for outpatient follow-up and general surgery office in 1.5 to 2 weeks postop. Interval wound care instructions were provided both verbally and written. Physical Exam Const alert, oriented x3 and no apparent distress GI GI Narrative: Nondistended, operative dressings are initially intact over port sites but are removed to reveal port sites with Steri-Strips still intact and otherwise well-appearing. Right upper quadrant drain with serosanguineous output. Clot is found in the tubing is stripped free and there is no evidence of bilious output. Abdomen is soft and appropriately tender to palpation only about port sites. Weight / BMI Weight Weight: 165 lb 5.547 oz Body Mass Index (BMI) 28.3 ABG / Lab / Microbiology Data 06/16/25 04:44 06/16/25 04:44 Laboratory: Laboratory Results - last 24 hr 06/16/25 04:44: WBC 9.2, RBC 3.88 L, Hgb 11.3 L, Hct 33.7 L, MCV 86.9, MCH 29.1, MCHC 33.5, RDW Std Deviation 37.5, RDW Coeff of Akin 12.0, Plt Count 363, MPV 8.5, Immature Gran % (Auto) 0.700, Neut % (Auto) 76.3 H, Lymph % (Auto) 12.5 L, [place] % (Auto) 5.5, Eos % (Auto) 4.6, Baso % (Auto) 0.4, Absolute Neuts (auto) 7.0, Absolute Lymphs (auto) 1.14, Nucleated RBC % 0, Sodium 135, Potassium 3.7, Chloride 100, Carbon Dioxide 21.6, Anion Gap 14, BUN 6, Creatinine 0.61 L, Estim Creat Clear Calc 128.87, Est GFR (MDRD) Non-Af 120, BUN/Creatinine Ratio 9.9 L, Glucose 75, Calcium 8.5, Total Bilirubin 0.50, AST 28, ALT 55 H, Alkaline Phosphatase 86, Total Protein 6.6, Albumin 3.4 L, Globulin 3.3, Albumin/Globulin Ratio 1.0 D/C Instructions May shower in (days): 2 Ice area for (Minutes): 20 Call your doctor if your incision/area has: Continuous Slow Oozing, Increased Pain/ Swelling, Increased Redness, Foul Smelling Discharge and Swelling at the incision site Call your doctor if you observe: Fever of 101 or Higher Cleanse incision/area with: Soap & Water DC O2, CPAP, BIPAP Needs Home O2 Discharge instructions: No Please Follow Up With: Ahmet Russell MD When: 7-10days postop Meaningful Use Info Meaningful Use Meaningful Use Diagnoses (Choose all that apply): None applicable Discharge Plan Admission Admit Date/Time: 06/14/25 17:10 Primary Reason for Your Visit: Gallbladder surgery Attending Provider: Ahmet Russell Primary Care Provider: Evelia Bird Discharge Orders/Prescriptions Prescriptions: Continued hydrocodone-acetaminophen 5-325 mg tablet 1 tab PO Q8H PRN PRN (Reason: pain) amoxicillin-pot clavulanate 875-125 mg tablet 1 tab PO BID oxycodone-acetaminophen 5-325 mg tablet 1 tab PO Q6H PRN PRN (Reason: pain) ondansetron 4 mg tablet,disintegrating 4 mg PO Q8H PRN PRN (Reason: Nausea) Qty: 10 0RF sennosides-docusate sodium [Stimulant Laxative Plus] 8.6-50 mg Tablet 2 tab PO BID 5 Days Qty: 20 0RF Referrals / Follow Up: Evelia Bird, LAMONTE-C [Primary Care Provider, Family Practice] Disposition Disposition (needs filled in before D/C Order can be placed): Home, Self Care Charges/Coding Visit Charges Inpatient E&M: 51061 Disch Hosp
[2025-06-16 14:01] VITALS: BP 119/76; PULSE 69; RESP 14; TEMP 36.5; O2SAT 98
== END 2025-06-16 14:29 | disposition home or self-care (01) | DRG 818 ==
LOC: ED 14:28 → SDC 14:30 → ACINP 14:31 → SDC 06-16 07:44 → MS3 06-16 07:44
PROVIDERS: Surgery; Admitting Provider Surgery; Emergency Provider Emergency Medicine; PCP Nurse Practitioner Family; Visit Provider Surgery
PROC: 0FB44ZX Excision of Gallbladder, Percutaneous Endoscopic Approach, Diagnostic (ICD-10-PCS; CPT 47610; principal; 2025-06-14 15:10)
DX: O99.611 Diseases of the digestive system complicating pregnancy, first trimester (principal); K80.12 Calculus of gallbladder with acute and chronic cholecystitis without obstruction; Z3A.01 Less than 8 weeks gestation of pregnancy; Z87.59 Personal history of other complications of pregnancy, childbirth and the puerperium
CPT/HCPCS: 36415; 74181; 80048; 80053; 83690; 85025; 88304; 99284; A4216; J0525; J2405

== ENCOUNTER → 2025-07-03 | Outpatient (CLI) | payer SELFPAY ==
[2025-07-03 16:06] LABS: Hematocrit 37.9 % (37-47); Hemoglobin 12.8 g/dL (12.0-15.0); Immature Granulocytes Count 0.030 X10^3/uL (0.0-0.0); Mean Corp Hgb Conc 33.8 g/dL (32-36); Mean Corpuscular Volume 87.7 fL (81-99); Mean Platelet Vol. 9.1 fl (6.2-12.0); NRBC Flagged by Analyzer 0 % (0-5); Platelet Count 333 K/mm3 (150-450); RBC Distribution Width CV 13.2 % (11.6-14.6); RBC Distribution Width SD 41.5 fl (35.1-43.9); Red Blood Count 4.32 M/mm3 (4.2-5.4); White Blood Count 8.8 K/mm3 (4.4-11.0)
[2025-07-03 16:52] LABS: Creatinine, Urine (random) 284.00 mg/dL (28.00-217.00); Protein, Urine (Random) 21.3 mg/dL (0.0-12.0); Protein:Creat Ratio 75 mg/g CRE (0-200)
[2025-07-03 17:27] LABS: AST(SGOT) 21 U/L (<=31); Alanine Aminotransfer ALT/SGPT 18 U/L (<=34); Albumin, Serum 4.3 g/dL (3.5-5.0); Alkaline Phosphatase 64 U/L (35-104); Anion Gap 14 (5-15); BUN 10 mg/dL (4-19); BUN/Creat Ratio 13.7 RATIO (10-20); Calcium,Total 9.4 mg/dL (7.6-11.0); Carbon Dioxide 22.2 mmol/L (21.0-32.0); Chloride 103 mmol/L (98-108); Globulin 3.1 g/dL (2.2-4.2); Glucose 77 mg/dL (70-99); HIV Nonreactive (Nonreactive); Hepatitis B Surface Antigen Nonreactive (Nonreactive); Hepatitis C Antibody Nonreactive (Nonreactive); Potassium 3.8 mmol/L (3.3-5.1); Syphilis Antibodies Nonreactive (Nonreactive)
[2025-07-06 04:07] LABS: Chlamydia By Nucleic Acid AMP Negative (Negative); Gonococcus By Nucleic Acid AMP Negative (Negative)
[2025-07-06 13:08] LABS: HPV APTIMA, High Risk Negative (Negative)
== END | disposition home or self-care (01) ==
PROVIDERS: PCP Nurse Practitioner Family; Visit Provider Student in an Organized Health Care Education/Training Program
DX: O09.291 Supervision of pregnancy with other poor reproductive or obstetric history, first trimester (principal); Z3A.00 Weeks of gestation of pregnancy not specified; Z87.59 Personal history of other complications of pregnancy, childbirth and the puerperium; Z12.4 Encounter for screening for malignant neoplasm of cervix
CPT/HCPCS: 36415; 80053; 82570; 84156; 85025; 86703; 86762; 86780; 86803; 86850; 86900; 86901; 87086; 87088; 87340; 87491; 87591; 87624; 88175; G0145